=== PATIENT | male | born 1960 | race Caucasian/White ===

== ENCOUNTER → 2020-11-16 02:27 | Outpatient (CLI) | payer BC, SELFPAY ==
[2020-11-16 21:58] LABS: SARS-CoV-2 RNA PCR Negative
== END ==
PROVIDERS: PCP Family Medicine; Visit Provider Otolaryngology
DX: Z01.812 Encounter for preprocedural laboratory examination (principal); Z20.822 Contact with and (suspected) exposure to COVID-19
CPT/HCPCS: C9803; U0003; U0005

== ENCOUNTER 2020-11-19 01:03 | Day surgery (SDC) | payer BC, SELFPAY ==
[2020-11-12 09:59] VITALS: BMI 34.7
[2020-11-19] VITALS (8 sets, daily range): BP systolic 124–160; BP diastolic 71–91; PULSE 73–101; RESP 12–20; TEMP 36.1; O2SAT 96–100
[2020-11-19] MEDS: ACETAMINOPHEN 500 MG TABLET 1000 MG PO (08:06)
[2020-11-19] MEDS: LACTATED RINGERS 1,000 ML 30 ML IV CONT ×2 (08:26→10:00)
[2020-11-19] MEDS: OXYMETAZOLINE HCL 0.05% NAS 15 ML BTL (*BKC) 1 SPRAY NASAL (08:26)
--- NOTE | 2020-11-19 08:26 | WPDHPUPDATE1 ---
History and Physical Update Update Date/Time: 11/19/20 08:26 History and Physical has been reviewed, including an updated exam of the patient. There are NO changes in the patient's condition. Risks, benefits, and alternatives have been discussed and questions answered. Patient agrees to proceed with procedure.
--- NOTE | 2020-11-19 08:40 | WPDANESEPPF ---
Anes - Initial Pre Proc Eval Procedure: Operation Date: 11/19/20 09:30 Proposed Procedures p Septoplasty, Bilateral Turbinate Reduction - Steven Laguerre MD Date/Time: 11/19/20 08:40 Surgeon: tSeven Laguerre MD Pre Op Diagnosis: deviated nasal septum Patient Data Age: 60 Gender: M Height: 5 ft 9 in Weight: 107.2 kg Last Vital Signs Temp 97 F L 11/19/20 07:49 Pulse 73 11/19/20 07:49 Resp 16 11/19/20 07:49 BP 135/82 11/19/20 07:49 Pulse Ox 99 11/19/20 07:49 Allergies Allergy/AdvReac Type Severity Reaction Status Date / Time naproxen [From Aleve] Allergy Severe Swelling Verified 11/19/20 08:00 of Lip/Tongue/Throat Home Medications Medication Instructions Recorded Confirmed Type omeprazole 40 mg PO DAILY 11/12/20 11/19/20 History Patient hx anesthesia problems: none Family hx anesthesia problems: none PMFSH Past Medical History Medical History (Updated 11/19/20 @ 08:29 by Alex Grullon MD) Arthritis Hyperlipidemia Hypertension Surgical History Surgical History (Updated 10/26/19 @ 16:38 by Sapna Petit) Hx of total knee arthroplasty Family History Family History (System 10/26/19 @ 16:38 by Sapna Petit) Father Patient's father is in good health Family history of premature coronary heart disease, Onset Age: 62 Sibling Family history of malignant neoplasm of breast in first degree relative Social History Social History (System 10/26/19 @ 16:38 by Sapna Petit) Smoking status: Never smoker Alcohol intake: current Other substance usage details: MAY HAVE A MARIJUANA GUMMY 1-2 A MONTH FOR PAIN ISSUES Living arrangements: with family Spiritual care concerns: No Anes - Eval Final PreProcedure Day of Procedure 11/19/20 08:40 Patient weight: obese Heart: regular rate and rhythm Lungs: clear to auscultation Airway: Mallampati scale class II Neurological: alert and oriented Last oral intake: >/= 8 hours ASA classification: III Emergent: no Anesthetic plan: proceed Anesthesia type and monitoring: general ETT and standard monitoring Informed Consent: The patient's anesthetic plan and its attendant risks and benefits were discussed with the patient/family/POA. Questions were solicited and answers provided to the satisfaction of the patient/family/POA.
[2020-11-19] MEDS: ceFAZolin 2 GM/D5W 50 ML 2 GM/50 ML BAG IVPB (08:46)
[2020-11-19] MEDS: LIDO 1%/EPINEPHRINE 1:100,000 50 ML VIAL INFILTRATE (09:39)
[2020-11-19] MEDS: MUPIROCIN 2% OINT 22 GM TUBE 1 APPLIC EACH NARE (09:39)
--- NOTE | 2020-11-19 09:55 | P.OP_ITS ---
Procedure Note - Detailed Date of procedure: 11/19/20 Pre-op diagnosis: deviated nasal septum Post-op diagnosis: same Procedure performed: septoplasty and bilateral inferior turbinoplasty Description of procedure: DESCRIPTION OF PROCEDURE: ? After obtaining informed consent and proper site verification the patient was brought to the operating room and placed on the operating table in the supine position. They were placed under general endotracheal anesthesia by the anesthesia provider. The patient was then draped in standard fashion for septoplasty and turbinoplasty. A timeout was performed and the correct patient and procedure were verified. The nasal cavity was injected with 1% lidocaine with 1-100,000 epinephrine and packed with afrin-soaked cottonoid pledgets. ? Attention was then directed to the nasal septum. A hemitransfixion incision was made in the right caudal septum and a mucoperichondrial flap was elevated in the usual fashion. The flap was elevated under endoscopic visualization and the remainder of the case was performed with endoscopic assistance. Using a D- knife, an incision was made through the cartilaginous septum with care to preserve the appropriate caudal and dorsal ?L-strut? of cartilage. The ca rtilage was then disarticulated from the bony-cartilaginous junction and the deviated cartilage was removed. Further deviated bone and cartilage was removed from the maxillary crest and posterior bony septum with care to avoid injury to the mucoperichondrial flap using a combination of dissection and Blair- Keron forceps. The caudal aspect of the septum was then partially resected 2mm to address a very caudal right deflection. Once this was completed, the hemitransfixion incision was closed using simple interrupted 4-0 chromic suture. A quilting stitch to reapproximate the mucoperichondrial flaps was then placed using 4-0 plain gut suture on a Sridhar needle. ? Next attention was directed to the turbinates. Using a 0? telescope and 2mm turbinate blade microdebrider, a stab incision was made in the anterior face of the turbinate and dissection was carried posterior to perform submucosal resection. Next the turbinate was outfractured using a blunt instrument. A similar procedure was then performed on the right-hand side without difficulty. Coppola splints covered in mupirocin ointment were placed in the nasal cavity and secured to the membranous septum using a 3-0 Prolene suture. ?The patient was awakened from general anesthesia extubated in the operating room, and transported to the recovery room in stable condition without complication. Anesthesia: GETA Surgeon: Steven Laguerre MD Estimated blood loss (mL): 15 Drains: No Packing: Yes (coppola splints) Pathology: none sent Complications: No immediate complications Condition: stable Disposition: same day Findings: right septal deviation
[2020-11-19] MEDS: fentaNYL CITRATE INJ (*CRX) 100 MCG/2 ML VIAL 25 MCG IV PUSH ×4 (10:18→10:35)
== END 2020-11-19 12:16 | disposition home or self-care (01) ==
PROVIDERS: PCP Family Medicine; Visit Provider Otolaryngology
PROC: (CPT 30520; principal; 2020-11-19 09:30)
DX: J34.2 Deviated nasal septum (principal); J30.2 Other seasonal allergic rhinitis; K21.9 Gastro-esophageal reflux disease without esophagitis; M19.90 Unspecified osteoarthritis, unspecified site; I10 Essential (primary) hypertension; E78.5 Hyperlipidemia, unspecified; E66.9 Obesity, unspecified; Z68.34 Body mass index [BMI] 34.0-34.9, adult; F12.90 Cannabis use, unspecified, uncomplicated; G47.33 Obstructive sleep apnea (adult) (pediatric)
CPT/HCPCS: 30520; 30140; A9270; C9803; J0330; J0690; J1100; J2250; J2405; J2704; J3010; J7120; U0003; U0005

== ENCOUNTER 2023-07-07 23:29 | Emergency (ER) | payer MEDICARE, SELFPAY ==
--- NOTE | ~2023-07-07 | XR_ITS ---
EXAMINATION: XR chest 2V DATE: 07/07/2023 23:51 INDICATION: Chest pain TECHNIQUE: PA and lateral views of the chest are obtained. COMPARISON: None available FINDINGS: The lungs are free of acute opacities. No pleural effusion or pneumothorax. The cardiomedia stinal silhouette is normal. There is moderate thoracic spondylosis. IMPRESSION: 1. No acute cardiopulmonary abnormality. Reviewed, dictated and finalized at location F.
--- NOTE | ~2023-07-07 | CT_ITS ---
Clinical Indication: Chest pain CT Scan of the Chest with Contrast: Technique: Contiguous sections were acquired throughout the chest after intravenous administration of 100 cc of Omnipaque 350. Dose reduction technique was used on this scan by utilizing automated expos ure control and iterative reconstruction technique. The dose-length product (DLP) was 939.36 mGy-cm. Findings: There is no evidence of any significant mediastinal, hilar or axillary lymphadenopathy. There is exte nsive pulmonary embolus, including saddle embolus involving the right and left main pulmonary emboli, all lobar branches, and numerous segmental branches. There is apparent reversal of the LV-RV ratio. There is no evidence of aortic dissection or aneurysm. There is no evidence of pleural or pericardial effusion. The lungs are clear. No pulmonary nodules or infiltrates are noted. Images through the upper abdomen reveal partially imaged suspected bilateral hydronephrosis. Impression: Extensive pulmonary embolus, as detailed above. There is subtle amorphous with involvement of the rig ht and left main pulmonary arteries, lobar branches, and numerous segmental branches. Reversal of the LV-RV ratio is compatible with element of right heart strain. Clear lungs. Reviewed, dictated and finalized at location . Impression: Extensive pulmonary embolus, as detailed above. There is subtle amorphous with involvement of the right and left main pulmonary arteries, lobar branches, and numerous segmental branches. Reversal of the LV-RV ratio is compatible with element of right heart strain. Clear lungs.
--- NOTE | 2023-07-07 23:30 | ECG_ITS ---
Measurements Intervals [place] Rate: 110 P: 39 W[place]: 158 QRS: -6 QRSD: 81 T: 49 QT: 319 QTc: 432 Interpretive Statements SINUS TACHYCARDIA OTHERWISE NORMAL ECG NO PREVIOUS ECG AVAILABLE FOR COMPARISON Electronically Signed On 07-08-2023 10:30:21 CDT by Dayday Guidry M.D.
[2023-07-07 23:42] VITALS: BP 115/78; PULSE 113; RESP 22; TEMP 36.6; O2SAT 93
[2023-07-07 23:49] LABS: Basophils Absolute Auto 0.1 K/mm3 (0.0-0.1); Basophils Percent Auto 0.4 % (0.2-1.2); Eosinophils Absolute Auto 0.3 K/mm3 (0-0.3); Hematocrit 46.3 % (42.0-52.0); Hemoglobin 15.4 g/dL (14.0-18.0); Immature Granulocyte Absolute 0.06 K/mm3 (0.00-0.031); Immature Granulocyte Percent A 0.4 % (0-0.5); Lymphocytes Absolute Auto 3.03 K/mm3 (0.9-3.2); Lymphocytes Percent Auto 21.7 % (18.3-44.2); Mean Corpuscular HGB Conc 33.3 g/dl (32-36); Mean Corpuscular Hemoglobin 28.7 pg (26-34); Mean Corpuscular Volume 86.4 fl (80-100); Mean Platelet Volume 9.3 fl (7.4-10.4); Monocytes Absolute Auto 0.9 K/mm3 (0.1-0.6); Monocytes Percent Auto 6.5 % (2.6-8.5); Neutrophils Absolute Auto 9.6 K/mm3 (1.3-6.7); Platelet Count Result 185 k/mm3 (150-375); Red Blood Count 5.36 M/mm3 (4.6-6.20); Red Cell Distribution Width 13.4 % (11.5-14.5)
[2023-07-08] VITALS (44 sets, daily range): BP systolic 87–140; BP diastolic 54–104; PULSE 92–112; RESP 15–31; O2SAT 92–98
[2023-07-08 00:08] LABS: Alanine Aminotransferase 33 U/L (6-50); Albumin Level 4.4 g/dL (3.5-5.1); Alkaline Phosphatase 80 U/L (38-126); Anion Gap 9 mmol/L (8-16); Aspartate Amino Transferase 31 U/L (17-59); Bilirubin,Total 0.7 mg/dL (0.2-1.3); Blood Urea Nitrogen 13 mg/dL (9-20); Calcium 8.8 mg/dL (8.4-10.2); Carbon Dioxide 22 mmol/L (22-30); Chloride 104 mmol/L (98-107); Estimated CRCL calculation 91 ml/min; Estimated Glomerular Filt Rate > 60; Glucose 138 mg/dL (65-110); Lipase 89 U/L (23-300); Potassium 4.2 mmol/L (3.4-5.0); Sodium 135 mmol/L (137-145)
[2023-07-08 00:10] LABS: Prothrombin Time 13.5 Seconds (11.1-14.7)
[2023-07-08 00:11] LABS: Partial Thromboplastin Time 27.6 SECONDS (22.3-36.8)
[2023-07-08 00:23] LABS: Troponin I 0.291 ng/mL (0.000-0.034)
--- NOTE | 2023-07-08 00:48 | ED.CHESTPAIN ---
HPI - Chest Pain General Chief Complaint: Chest Pain <BRYANT Rivers Last Filed: 07/08/23 04:42> Stated Complaint: chest pain, SOB <BRYANT Rivers Last Filed: 07/08/23 04:42> Time Seen by Provider: 07/08/23 00:33 <BRYANT Rivers Last Filed: 07/08/23 04:42> History of Present Illness HPI narrative: 63-year-old male with a history of hyperlipidemia reports for evaluation for chest pain since 929 this morning. Patient states the chest pain started when he got up to walk down the [place] that was associated with dizziness and diaphoresis. He says intermittently throughout the day, he has been having these episodes while he is exerting himself. He states that the chest pain is sharp, substernal, exertional and pleuritic. He reports a cough that is unchanged from his baseline. He denies syncope, palpitations, radiating pain, nausea or vomiting, abdominal pain, fever. He does report family medical history of heart disease. Denies cardiac history himself. <BRYANT Rivers Last Filed: 07/08/23 04:42> Related Data Home Medications: Home Medications Medication Instructions Recorded Confirmed omeprazole 40 mg capsule,delayed 40 mg PO DAILY 11/12/20 11/19/20 release <BRYANT Rivers Last Filed: 07/08/23 04:42> Allergies/Adverse Reactions: Allergies Allergy/AdvReac Type Severity Reaction Status Date / Time naproxen [From Aleve] Allergy Severe Swelling Verified 11/19/20 08:00 of Lip/Tongue/Throat <BRYANT Rivers Last Filed: 07/08/23 04:42> Review of Systems Review of Systems: CONSTITUTIONAL: Denies fever, chills EYES: Denies visual changes, redness, or discharge. ENT: Denies rhinorrhea, congestion, sore throat, or otalgia. CARDIOVASCULAR: See HPI RESPIRATORY: Denies cough or dyspnea. GASTROINTESTINAL: Denies abdominal pain, nausea, vomiting, or diarrhea. GENITOURINARY: Denies dysuria or hematuria. SKIN: Denies rash or itching. MUSCULOSKELETAL: Denies back pain, joint pain, or myalgia. NEUROLOGIC: Denies headache, numbness, dizziness, or weakness. PSYCHIATRIC: Denies anxiety or depression. <Kimber Farmer PA-C - Last Filed: 07/08/23 04:42> [facility] Past Medical History Medical History: Medical History Arthritis Hyperlipidemia Hypertension <Kimber Farmer PA-C - Last Filed: 07/08/23 04:42> Surgical History Surgical History: Surgical History Hx of total knee arthroplasty <Kimber Farmer PA-C - Last Filed: 07/08/23 04:42> Family History Family History: Family History Father Patient's father is in good health Family history of premature coronary heart disease, Onset Age: 62 Sibling Family history of malignant neoplasm of breast in first degree relative <Kimber Farmer PA-C - Last Filed: 07/08/23 04:42> Social History Social History: Social History Smoking status: Never smoker Alcohol intake: current Other substance usage details: MAY HAVE A MARIJUANA GUMMY 1-2 A MONTH FOR PAIN ISSUES Living arrangements: with family Spiritual care concerns: No <Kimber Farmer PA-C - Last Filed: 07/08/23 04:42> Exam Narrative: GENERAL: Well-appearing, in no acute distress. HEAD: Normocephalic EYES: PERRLA ENT: Nares clear. Mucous membranes moist. Oropharynx without tonsillar hypertrophy exudate or other lesions. NECK: Supple. CHEST: No respiratory distress. Clear to auscultation, no adventitious breath sounds. HEART: Regular rate and rhythm. No murmur heard. Normal peripheral pulses. ABDOMEN: Soft, nontender, normal active bowel sounds. EXTREMITIES: Normal range of motion. No edema. SKIN: Warm, dry, no rash. NEURO: No focal defi
[2023-07-08] MEDS: ASPIRIN 81 MG CHEWABLE TABLET 324 MG PO (01:14)
[2023-07-08] MEDS: NITROGLYCERIN SL 0.4 MG TABLET SUBLINGUAL ×3 (01:15→01:32)
[2023-07-08] MEDS: HEPARIN SODIUM 5,000 UNITS/ML VIAL 4000 UNITS IV PUSH (01:16)
[2023-07-08] MEDS: HEPARIN SOD/D5W 100 UNITS/ML 25,000 UNITS/250 ML BAG 10 UNITS IV CONT (01:23)
--- NOTE | 2023-07-08 01:30 | PC.NURSE ---
Pt's 3rd dose of Nitro dropped pressure to 80's systolic. ERP notified and IVF started. Pt's BP improved with next BP.
[2023-07-08] MEDS: SODIUM CHLORIDE 0.9% IV 1,000 ML 999 ML IV CONT (01:41)
[2023-07-08 03:08] LABS: NT Pro B Type Natriuretic Pept 1180 pg/mL (19.9-100)
[2023-07-08] MEDS: HEPARIN SODIUM 5,000 UNITS/ML VIAL 4500 UNITS IV PUSH (03:19)
[2023-07-08] MEDS: HEPARIN SOD/D5W 100 UNITS/ML 25,000 UNITS/250 ML BAG 15 UNITS IV CONT (03:21)
--- NOTE | 2023-07-08 03:34 | PC.NURSE ---
Pt's heparin drip dosing changed by provider. Unable to dc med in NOV. Dosing changed from original bag.
[2023-07-08 04:07] LABS: Troponin I 0.299 ng/mL (0.000-0.034)
--- NOTE | 2023-07-08 06:45 | PC.NURSE ---
Report to MARIO Alejo at [facility] ICU. Pt going to [phone].
[2023-07-08 06:48] LABS: Troponin I 0.234 ng/mL (0.000-0.034)
--- NOTE | 2023-07-08 07:13 | PC.NURSE ---
Updated [facility] that pt was on the way.
== END 2023-07-08 07:18 | disposition short-term general hospital (02) ==
PROVIDERS: Physician Assistant; Emergency Provider Emergency Medicine; PCP Family Medicine
DX: I21.3 ST elevation (STEMI) myocardial infarction of unspecified site (principal); I26.02 Saddle embolus of pulmonary artery with acute cor pulmonale; M19.90 Unspecified osteoarthritis, unspecified site; E78.5 Hyperlipidemia, unspecified; I10 Essential (primary) hypertension; R06.82 Tachypnea, not elsewhere classified
CPT/HCPCS: 36415; 71046; 71275; 80053; 83690; 83880; 84484; 85025; 85610; 85730; 93005; 96365; 96366; 99285; A9270; J1644; J7030; Q9967

== ENCOUNTER 2023-09-25 12:16 | Outpatient (CLI) | payer OTHER, SELFPAY ==
--- NOTE | ~2023-09-25 | XR_ITS ---
EXAMINATION: XR hip BI 2V w AP pelvis DATE: 09/25/2023 12:41 INDICATION: Bilateral hip pain TECHNIQUE: AP view the pelvis and two views of each hip were obtained. COMPARISON: None. FINDINGS: Bone alignment is normal. There is no fracture. There is mild osteoarthritis of the hips. T here are phleboliths in the pelvis. Surgical changes are noted in the lower lumbar spine. IMPRESSION: 1. Mild osteoarthritis of the hips. Reviewed, dictated and finalized at location B. PHONE DIRECTORY DISTRIBUTOR DRIVER
== END 2023-09-25 12:17 | disposition home or self-care (01) ==
PROVIDERS: Visit Provider Orthopaedic Surgery
DX: M16.0 Bilateral primary osteoarthritis of hip (principal); M25.551 Pain in right hip; M25.552 Pain in left hip
CPT/HCPCS: 73521

== ENCOUNTER 2024-02-06 09:14 | Outpatient (CLI) | payer MEDICARE, SELFPAY ==
[2024-02-06 09:54] LABS: Basophils Absolute Auto 0.1 K/mm3 (0.0-0.1); Basophils Percent Auto 0.6 % (0.2-1.2); Eosinophils Absolute Auto 0.5 K/mm3 (0-0.3); Eosinophils Percent Auto 6.1 % (0-4.4); Hematocrit 45.2 % (42.0-52.0); Hemoglobin 14.8 g/dL (14.0-18.0); Immature Granulocyte Absolute 0.04 K/mm3 (0.00-0.031); Immature Granulocyte Percent A 0.5 % (0-0.5); Lymphocytes Absolute Auto 1.99 K/mm3 (0.9-3.2); Mean Corpuscular HGB Conc 32.7 g/dl (32-36); Mean Corpuscular Volume 85.6 fl (80-100); Mean Platelet Volume 9.4 fl (7.4-10.4); Monocytes Absolute Auto 0.6 K/mm3 (0.1-0.6); Monocytes Percent Auto 7.6 % (2.6-8.5); Neutrophils Absolute Auto 5.1 K/mm3 (1.3-6.7); Neutrophils Percent Auto 61.2 % (45.5-73.1); Platelet Count Result 258 k/mm3 (150-375); Red Blood Count 5.28 M/mm3 (4.6-6.20); Red Cell Distribution Width 13.7 % (11.5-14.5); White Blood Count 8.3 K/mm3 (4.5-10.0)
[2024-02-06 09:58] LABS: Alanine Aminotransferase 35 U/L (6-50); Albumin Level 4.5 g/dL (3.5-5.1); Alkaline Phosphatase 63 U/L (38-126); Anion Gap 9 mmol/L (4-12); Aspartate Amino Transferase 26 U/L (17-59); Bilirubin,Total 0.9 mg/dL (0.2-1.3); Blood Urea Nitrogen 21 mg/dL (9-20); Calcium 8.8 mg/dL (8.4-10.2); Carbon Dioxide 22 mmol/L (22-30); Chloride 106 mmol/L (98-107); Cholesterol 199 mg/dL (0-200); Estimated Glomerular Filt Rate > 60; Glucose 116 mg/dL (65-110); HDL Direct 51 mg/dL; Hemoglobin A1C 5.8 % (<5.7); Potassium 4.5 mmol/L (3.4-5.0); Sodium 137 mmol/L (137-145); Triglycerides 148 mg/dL (<150)
[2024-02-06 10:08] LABS: LDL Cholesterol Direct 103 mg/dL
[2024-02-06 10:29] LABS: Prostate Specific Antigen 1.8 ng/mL (< OR = 4.0)
== END 2024-02-06 09:15 | disposition home or self-care (01) ==
LOC: ANHLAB 09:21
PROVIDERS: PCP Family Medicine; Visit Provider Family Medicine
DX: I10 Essential (primary) hypertension (principal); E78.2 Mixed hyperlipidemia; R73.9 Hyperglycemia, unspecified; R63.5 Abnormal weight gain; N40.1 Benign prostatic hyperplasia with lower urinary tract symptoms
CPT/HCPCS: 36415; 80053; 80061; 83036; 84153; 84443; 85025

== ENCOUNTER 2024-07-29 12:52 | Emergency (ER) | payer MEDICARE, SELFPAY ==
--- NOTE | ~2024-07-29 | XR_ITS ---
EXAMINATION: XR chest 2V DATE: 07/29/2024 13:18 INDICATION: Productive cough. TECHNIQUE: Frontal and lateral views of the chest were obtained. COMPARISON: Chest 2 views 07/07/2023, chest CT 07/08/2023 FINDINGS: There is no pneumonia, pleural effusion, or pneumothorax. The heart size is normal. IMPRESSION: 1. No acute cardiopulmonary disease. Reviewed, dictated and finalized at location B.
[2024-07-29 13:01] VITALS: BP 138/93; PULSE 82; RESP 16; TEMP 36.1; O2SAT 99
--- NOTE | 2024-07-29 13:05 | ED.URI ---
HPI - URI/Sore Throat General Chief Complaint: Upper Respiratory Infection Stated Complaint: Sinus Infection Symptoms Time Seen by Provider: 07/29/24 13:05 Source: patient, RN notes reviewed and old records reviewed Mode of arrival: ambulatory Limitations: no limitations History of Present Illness HPI Narrative: 64-year-old male to Express Care with complaint of cough for 2 weeks. Patient reports that for the last week cough has been productive with red streaked sputum nightly. Patient reports history saddle pulmonary embolism 1 year ago and current Eliquis use. Patient denies shortness of breath, chest pain, fever. Patient sitting uncomfortably in exam room, appears tired. Patient able to tolerate fluids by mouth. Respirations even and nonlabored. Patient able to speak in complete sentences without difficulty. Related Data Home Medications Medication Instructions Recorded Confirmed apixaban 2.5 mg tablet (Eliquis) 2.5 mg PO DAILY 07/29/24 07/29/24 Allergies Allergy/AdvReac Type Severity Reaction Status Date / Time naproxen [From Aleve] Allergy Severe Swelling Verified 07/29/24 13:07 of Lip/Tongue/Throat Review of Systems Review of Systems: All systems reviewed & are unremarkable except as noted in HPI and below Constitutional: Constitutional: Reports no additional constitutional complaints Eyes: Eyes: Reports no additional eye complaints ENT: Reports system reviewed and no additional complaints, except as documented Cardiovascular: Cardiovascular: Reports no additional cardiovascular complaints, Denies chest pain and Denies dyspnea Respiratory: Respiratory: Reports no additional respiratory complaints, Reports change in phlegm color, Reports cough and Denies dyspnea Musculoskeletal: Musculoskeletal: Reports no additional musculoskeletal complaints Neurologic: Reports system reviewed and no additional complaints, except as documented Psychiatric: Psychiatric: Reports no additional psychiatric complaints [facility] Past Medical History Medical History Arthritis Arthritis of knee Dizziness Elevated fasting glucose Erectile dysfunction of non-organic origin Erosion of nasal septum Essential (primary) hypertension History of blood clots Saddle Blood Clot - Lungs Hyperlipidemia Hypertension Migraine without aura Mixed hyperlipidemia Neoplasm of uncertain behavior of skin Overactive bladder Pollen allergies Pre-op testing Saddle embolism of pulmonary artery Surgical History Surgical History History of back surgery Fusion L4-5; Discectomy Lower Back History of bilateral knee replacement History of knee surgery x8 total - including 2 replacements History of rotator cuff surgery Hx of total knee arthroplasty Family History Family History Father Patient's father is in good health Family history of premature coronary heart disease, Onset Age: 62 Sibling Family history of malignant neoplasm of breast in first degree relative Social History Social History Social History: Smoking status: Never smoker Second hand tobacco smoke exposure: No Alcohol intake: current Alcohol use details: Rarely Substance use: current Substance use type: marijuana Other substance usage details: MAY HAVE A MARIJUANA GUMMY 1-2 A MONTH FOR PAIN ISSUES Do You Feel Safe in your Home?: Yes Lack of Transportation: No Lack of Food: Never True Current Housing: I Have Housing Concerned About Future Housing: No Difficulty Paying Gas/Electric Bills: No Difficulty Paying for Meds: No Currently Unemployed: YES Education: Trade/Vocational Certificate Difficulty w/ Childcare or Family Care: No Living arrangements: with family Occupation/Education: retired Gender identity (if verbalized by the patient): Male Sexual Orientation (if Verbalized by the Patient): Straight or Heterosexual Spiritual care concerns: No Comments At the time of my signature, I reviewed and agree with the nursing past medical, surgical, social, and family history. There is no relevant family history pertinent to the patient complaint. Exam Const: General: cooperative, no acute distress, alert and well nourished Nutritional Appearance: well nourished Orientation/consciousness: patient oriented x3 Limitations: no limitations HENMT: Head: normal to inspection Ears: external ears normal Face/Nose/Sinus: Normal external nose present, Normal nares present, normal facial exam, No erythema and No edema Face and sinus: normal facial exam, no erythema and no edema Mouth: Yes Normal oral and palatal mucosa present Eyes: General: appearance normal, both eyes and all related structures Neck: Neck: normal visual inspection, full ROM and no meningeal signs Chest: Chest palpation & inspection: normal inspection of the chest Resp: Effort & Inspection: normal respiratory effort and able to speak in complete sentences Auscultation: clear to auscultation bilaterally and diminished lung sounds bilateral in the lower lung groves Cardio: Jugular venous distension: no JVD Rate: regular rate Rhythm: regular rhythm Back/Spine/Pelvis: Cervical Spine: cervical ROM normal Skin: General skin exam: normal color, no rashes or lesions noted and turgor normal Neuro: General: patient oriented x3, gait normal, moves all extremities and no meningeal signs Speech: normal speech Gait exam (Neuro): Normal gait present Extrem: General: normal to inspection, full ROM and capillary refill normal Psych: Appearance: grossly normal and well kempt Course Course Emergency Course: Some parts of this dictation were generated by voice recognition software and may contain typographical and/or grammatical inaccuracies. Level of Care: Express Care Visit Vital Signs Vital signs: Vital Signs Temperature 36.1 C L 07/29/24 13:01 Pulse Rate 82 07/29/24 13:01 Respiratory Rate 16 07/29/24 13:01 Blood Pressure 138/93 H 07/29/24 13:01 Pulse Oximetry 99 07/29/24 13:01 Temperature 36.1 C L 07/29/24 13:01 Pulse Rate 82 07/29/24 13:01 Respiratory Rate 16 07/29/24 13:01 Blood Pressure 138/93 H 07/29/24 13:01 Pulse Oximetry 99 07/29/24 13:01 reviewed MDM - URI/Sore Throat MDM Narrative Medical decision making narrative: 64-year-old male to Express Care with complaint of cough for 2 weeks. Patient reports that for the last week cough has been productive with red streaked sputum nightly. Patient reports history saddle pulmonary embolism 1 year ago and current Eliquis use. Patient denies shortness of breath, chest pain, fever. Patient sitting uncomfortably in exam room, appears tired. Patient able to tolerate fluids by mouth. Respirations even and nonlabored. Patient able to speak in complete sentences without difficulty. On exam, bilateral lower lung sounds diminished. Exam otherwise unremarkable. Chest x-ray in clinic negative for acute findings. Patient is sitting comfortably in exam room nontoxic in appearance. Patient appropriate for outpatient treatment and follow-up. Discharge instructions reviewed with patient, as well as provided in writing per nursing staff. The instructions also include specific and strict return/GO TO THE ER as well as f/u information. All questions have been answered, and the patient deny any further questions with discharge and discharge plan. Some parts of this dictation were generated by voice recognition software and may contain typographical and/or grammatical inaccuracies. Differential Diagnosis Differential diagnosis: Likely upper respiratory infection, croup, otitis media, sinusitis, viral infection, bronchitis, influenza and pharyngitis Discharge Plan Discharge Clinical Impression: Bronchitis Patient Disposition: Home, Self-Care Condition: Stable Instructions: Acute Bronchitis (ED) Additional Instructions: -Alternate Tylenol and Motrin per package directions for fever or pain. -Antihistamine medication such as Benadryl at night and Zyrtec/Claritin/Rubi during the day can help improve symptoms. -Use Flonase twice a day for 5 days then daily to help reduce the inflammation and dry up your sinuses. -You can also use Sudafed or Mucinex. Be sure to drink plenty of water with these medications at least 8 ounces with every dose and it is important to drink 8 to 10 glasses of water per day. Water is a natural decongestant -Eat and drink things that are easy to swallow, like tea or soup, or popsicles. -Oral rinses such as: Salt water gargles and/or may use topical anesthetic (eg. Chloraseptic spray) or lozenges to relieve dryness or throat pain). -Frequent hand washing or hand veterinary surgery technician is one of the best ways to prevent spread of infection. -Using a vaporizer or humidifier at night will also help thin secretions and help with coughing up phlegm. -Follow up with primary care provider in 2-3 days if condition is not improving; or seek ER visit if you have trouble breathing, cannot drink enough fluids, have muffled voice, difficulty opening your mouth, or severe swelling. Prescriptions: New methylprednisolone [Medrol (Bert)] 4 mg tablets,dose pack See Rx Instructions .ROUTE .COMPLEX Qty: 21 0RF Rx Instructions: per package instructions amoxicillin-pot clavulanate 875-125 mg tablet 1 tablet PO Q12H Qty: 20 0RF fluticasone propionate [Flonase Allergy Relief] 50 mcg/actuation spray,suspension 1 spray intranasal BID Qty: 16 0RF Rx Instructions: administer into each nostril No Action Eliquis 2.5 mg tablet 2.5 mg PO DAILY omeprazole 40 mg capsule,delayed release(DR/EC) 40 mg PO DAILY Qty: 90 1RF atorvastatin 40 mg tablet 40 mg PO DAILY Qty: 90 1RF Follow-up/Referrals: Davida Pedraza MD [Primary Care Provider] -
== END 2024-07-29 13:51 | disposition home or self-care (01) ==
PROVIDERS: Emergency Provider Nurse Practitioner Family; PCP Family Medicine
DX: J40 Bronchitis, not specified as acute or chronic (principal); F12.90 Cannabis use, unspecified, uncomplicated; I10 Essential (primary) hypertension; E78.5 Hyperlipidemia, unspecified; E78.2 Mixed hyperlipidemia; Z86.711 Personal history of pulmonary embolism; Z96.653 Presence of artificial knee joint, bilateral; Z79.01 Long term (current) use of anticoagulants; Z86.2 Personal history of diseases of the blood and blood-forming organs and certain disorders involving the immune mechanism
CPT/HCPCS: 71046; 99213; G0463

== ENCOUNTER 2024-12-15 14:17 | Outpatient (CLI) | payer MEDICARE, SELFPAY ==
--- OUTSIDE RECORDS SUMMARY | 2024-12-15 14:48 | XMS_ITS | Clinical Summary ---
Author Organization [facility] Address [address] [place] [address] Care Team Providers Care Data Analyst Report Writer Name Role Phone A, Unknown Practice Primary Care Provider [phone] Source Comments [facility],non-owned Affiliates and Associated Physician Practices is amultiple site organization consisting of ambulatory clinics and hospital sitesin [place], [place], [place] and [place]. This disclosure is being madepursuant to the Care Everywhere program and may not contain all information available regarding this patient. Last updated 18.[facility] Allergies Active Allergy Reactions Criticality Noted Date Comments Naproxen Swelling 07/08/2023 Tongue swelling Medications * Be aware that medications may not be up to date on this document. Alwaysverify current medications with the patient. Medication Sig Dispensed Refills Start Date End Date Status atorvastatin (Lipitor) 40 MG tablet Take 1 (one) tablet by mouth once daily 05/29/2023 Active omeprazole (PriLOSEC) 40 MG capsule Take 1 (one) capsule by mouth once daily 05/26/2023 Active apixaban (Eliquis) 2.5 MG tablet Take 1 (one) tablet by mouth 2 times daily 90 tablet 3 05/18/2024 Active apixaban (Eliquis) 5 MG tablet Take 1 (one) tablet by mouth 2 times daily 180 tablet 2 01/06/2024 11/25/2024 Discontinued (Tx Complete) Active Problems Problem Noted Date Diagnosed Date Pulmonary embolism and infarction 07/08/2023 Encounters Date Type Department Care Team Description 11/25/2024 9:18 AM BODS DEVELOPER - 11/25/2024 11:59 PM [facility] Hospital Encounter [facility] OP DRAW STATION [address] [place] [phone] Kiarra Bernabe MD Discharge Disposition: Home or Self Care 11/25/2024 8:00 AM BODS DEVELOPER Office Visit [facility] - Pulmonology [address] [facility] [facility] [address], [place] [address] Kiarra Bernabe MD Pulmonary embolism and infarction (Primary Dx); Chronic anticoagulation 11/25/2024 Travel from Last 3 Months Family History Medical History Relation Name Comments Cancer - Breast Sister Relation Name Status Comments Sister Social History Tobacco Use Types Packs/Day Years Used Date Smoking Tobacco: Some Days Cigars Smokeless Tobacco: Never Tobacco Cessation:Ready to Q uit: Not Asked; Counseling Given: Not Answered Alcohol Use Standard Drinks/Week Comments Yes 0 (1 standard drink = 0.6 oz pur e alcohol) OCCASIONAL SOCIALLY AUDIT-C Answer Date Recorded Q1: How often do you have a drink containing alc ohol? Monthly or less 07/09/2023 Q2: How many drinks containi ng alcohol do you have on a typical day when you are drinking? 1 or 2 07/09/2023 Q3: How often do you have si x or more drinks on one occasion? Never 07/09/2023 Overall Financial Resource Strain (CARDIA) Answe r Date Recorded How hard is it for you to pa y for the very basics like food, housing, medical care, and heating? Not very hard 07/09/2023 [facility] [place] [facility] - Occupational Stress Questionnaire Answer Date Recorded Do you feel stress - tense, restless, nervous, or anxious, or unable to sleep at night because your mind is troubled all the time - these days? Only a little 07/09/2023 Hunger Vital Sign Answer Date Recorded Within the past 12 months, y ou worried that your food would run out before you got the money to buy more. Never true 07/09/20 23 Within the past 12 months, t he food you bought just didn't last and you didn't have money to get more. Never true 07/09/2023 PRAPARE - Transportation Answer Date Re corded In the past 12 months, has l ack of transportation kept you from medical appointments or from getting medications? No 06/28 In the past 12 months, has l ack of transportation kept you from meetings, work, or from getting things needed for daily living? No 07/09/2023 Housing Stability Vital Sign Answer Samir e Recorded In the last 12 months, was t here a time when you were not able to pay the mortgage or rent on time? No 07/09/2023 In the last 12 months, how many places have you lived? 1 07/09/2023 In the last 12 months, was t here a time when you did not have a steady place to sleep or slept in a group home (including now)? No 07/09/2023 Sex and Gender Information Value Date Recorded Sex Assigned at Not on file Gender Identity Not on file Sexual Orientation Not on file Last Filed Vital Signs Vital Sign Reading Time Taken Comments Blood Pressure 135/84 11/25/2024 7:53 AM BODS DEVELOPER Pulse 82 11/25/2024 7:53 AM BODS DEVELOPER Temperature 36.7 C (98 F) 08/13/2023 9:30 AM BODS DEVELOPER Respiratory Rate 17 11/25/2024 7:53 AM BODS DEVELOPER Oxygen Saturation 94% 11/25/2024 7:53 AM BODS DEVELOPER Inhaled Oxygen Concentration - - Weight 116 kg (255 lb 12.8 oz) 11/25/2024 7:53 A M BODS DEVELOPER Height 175.3 cm (5' 9 ) 11/25/2024 7:53 AM BODS DEVELOPER Body Mass Index 37.78 11/25/2024 7:53 AM BODS DEVELOPER Plan of Treatment Upcoming Encounters Date Type Department Care Team (Late st Contact Info) Description 12/19/2024 11:30 AM CDT Appointment [facility] [address] [place] [phone] Kiarra Bernabe MD [address] [place] [address] 2L DIV OF PULMONARY/[place] [phone] 05/26/2025 8:30 AM CDT Office Visit [facility] - Pulmonology [address] [place] [address], [place] [phone] Kiarra Bernabe MD [address] [place] [address] [address] DIV OF PULMONARY/[place] [address] Health Maintenance Due Date Last Done Comments COLOGUARD (AGES 45-75) - COL ON CA SCREENING 1961 COLON MONITORING 1961 COLONOSCOPY - COLON CA SCREENING 1961 CT COLONOGRAPHY - COLON CA SCREENING 1961 Colorectal Cancer Screening 1961 FIT - COLON CA SCREENING 1961 FLEX SIG - COLON CA SCREENING 1961 HIV SCREENING 1976 HEPATITIS C SCREENING 05/20/1979 DTAP/TDAP/TD VACCINES (1 - Tdap) 1980 PNEUMOCOCCAL VACCINE 50+ (1 of 2 - PCV) 1980 ZOSTER VACCINE (1 of 2) 2011 Respiratory Syncytial Virus (RSV) Vaccine Pt: or over 60 yrs (1 - Risk 60-74 years 1-dose series) 2021 COVID-19 VACCINE (1 - 2023-2 5 season) 2024 INFLUENZA VACCINE (#1) 2024 DEPRESSION SCREENING 09/28/2024 MEDICARE AWV CALENDAR YEAR 2024 SCREENING FOR DIABETES 07/10/2026 3, 07/09/2023, 07/08/2023 HEPATITIS B VACCINE Aged Out No longe r eligible based on patient's age to complete this topic HIB VACCINE Aged Out No longer eligi ble based on patient's age to complete this topic HPV VACCINE Aged Out No longer eligi ble based on patient's age to complete this topic MENINGOCOCCAL (Group B) VACCINE SHARED DECISION-MAKING Aged Out No longer eligible based on patient's age to complete this topic MENINGOCOCCAL GROUPS A/C/Y/W VACCINE Aged Out No longer eligible b ased on patient's age to complete this topic Goals Goal Patient Goal Type Associated Problems Recent Progress Patient-Stated? Author Medication Management General On track( 023 9:37 AM BODS DEVELOPER) Isaías Pires, RN Note: Expected end date: Interventions: Take all medications as prescribed Let your doctor know right away about any changes in your medications Make sure to request a refill of your medication at least one week prior to your last dose Procedures Procedure Name Priority Date/Time Associated Diagnosis Comments CBC W AUTO DIFFERENTIAL Routine 11/25/2024 9:48 AM BODS DEVELOPER Pulmonary embolism and infarction Chronic anticoagulation HEMOGLOBIN A1C Routine 07/10/2023 2:58 AM CDT from Last 3 Months or Most Recently Relevant to Health Maintenance Results * CBC WITH DIFFERENTIAL (11/25/2024 9:48 AM [facility]) WBC 10.0 4.0 - 10.7 x10E9/L 11/25/2024 10:45 AM [facility] RBC Count 5.38 4.30 - 5.80 x10E12/L 11/25/2024 10:45 AM [facility] Hemoglobin 14.9 13.3 - 17.5 g/dL 11/25/2024 10:45 AM [facility] Hematocrit 44.4 38.7 - 51.1 % 11/25/2024 10:45 AM [facility] MCV 82.5 80.0 - 98.0 fL 11/25/2024 10:45 AM [facility] MCH 27.7 26.7 - 33.6 pg 11/25/2024 10:45 AM [facility] MCHC 33.6 31.7 - 36.3 g/dL 11/25/2024 10:45 AM [facility] RDW-CV 13.0 11.3 - 14.8 % 11/25/2024 10:45 AM [facility] Platelet Count 235 150 - 420 x10E9/L 11/25/2024 10:45 AM [facility] MPV 9.5 7.8 - 11.4 fL 11/25/2024 10:45 AM [facility] Neutrophil % 66.6 41.0 - 74.0 % 11/25/2024 10:45 AM [facility] Lymphocyte % 21.8 17.0 - 47.0 % 11/25/2024 10:45 AM [facility] Monocyte % 7.4 3.0 - 11.0 % 11/25/2024 10:45 AM [facility] Eosinophil % 3.2 0.0 - 7.0 % 11/25/2024 10:45 AM [facility] Basophil % 0.4 0.0 - 1.6 % 11/25/2024 10:45 AM [facility] Immature Granulocytes % 0.6 0.0 - 1.0 % 11/25/2024 10:45 AM [facility] Neutrophil Absolute 6.68 1.60 - 7.50 x10E9/L 11/25/2024 10:45 AM [facility] Lymphocyte Absolute 2.19 1.00 - 4.40 x10E9/L 11/25/2024 10:45 AM [facility] Monocyte Absolute 0.74 0.15 - 1.00 x10E9/L 11/25/2024 10:45 AM [facility] Eosinophil Absolute 0.32 0.00 - 0.60 x10E9/L 11/25/2024 10:45 AM [facility] Basophil Absolute 0.04 0.00 - 0.13 x10E9/L 11/25/2024 10:45 AM [facility] Blood BLOOD SPECIMEN / Unknown Lab Venipuncture / Unknown 11/25/2024 9:48 AM [facility] 11/25/2024 10:40 AM [facility] Kiarra Bernabe MD LAB - HEMATOLOGY ORD ERABLES [facility] [address] [place] [phone], [facility] [phone] * (ABNORMAL) HEMOGLOBIN A1C (07/10/2023 2:58 AM CDT) Hemoglobin A1c 6.4(H) <=5.6 % 07/10/2023 11:22 AM [facility] Estimated Average Glucose 137 mg/dL 07/10/2023 11:22 AM [facility] Comment: HbA1c Interpretation: Normal : < 5.7% Pre-diabetes: 5.7-6.4% Diabetes: Equal to or greater than 6.5% Test results diagnostic of diabetes should be repeated for confirmation. Treatment target values recommended by ADA and other clinical organizations should be used to evaluate metabolic control in patients. Reference: [place] Diabetes Association, Standards of Care in Diabetes -2020 In patients 70 years and older consider HbA1c target range of 7.0-7.5% (Reference: Diaz A, et al. JAMDA. 2012) The Sebia assay for the measurement of HbA1c is a National Glycohemoglobin Standardization Program (NGSP) certified method. Blood BLOOD SPECIMEN / Unknown Lab Venipuncture / Unknown 07/10/2023 2:58 AM CDT 07/10/2023 4:05 AM CDT Quincy Salinas MD LAB - CHEMISTRY [facility] Organization Address City/State/ZIP Co de Phone Number [facility] [address] [place] [address], [facility] [phone] from Last 3 Months or Most Recently Relevant to Health Maintenance Advance Directives * Full Code (Latest Code Status on File) Date Activated Date Inactivated Comments 07/08/2023 8:30 AM 07/10/2023 4:32 PM Care Teams Data Analyst Report Writer Relationship Specialty Start Date End Date A, Unknown Practice [address] [place] [address] PCP - General 07/05/23
--- OUTSIDE RECORDS SUMMARY | 2024-12-15 14:48 | XMS_ITS | Clinical Summary ---
Author Organization [facility] Address [address] [place] [address] Phone Care Team Providers Care Supervising Law Enforcement Analyst Name Role Phone Davida Pedraza MD Primary Care Provider [phone] Allergies Active Allergy Reactions Criticality Noted Date Comments Naproxen Sodium Anaphylaxis 11/11/2018 Tongue/ lips swell, hands itch Medications lansoprazole (PREVACID) 30 mg Capsule, Delayed Release(E.C.) Take 30 mg by mouth daily. Active losartan-hydroC HLOROthiazide (HYZAAR) 50-12.5 mg tablet Take 1 Tablet by mouth daily. Active atorvastatin (LIPITOR) 10 mg tablet Take 10 mg by mouth daily. Active acetaminophen (TYLENOL) 500 mg tablet Take 2 Tablets (1,000 mg) by mouth every 8 hours. 60 Tablet 1 11/24/2018 2:20 PM IMMIGRATION LAW SPECIALIST 9 Active Additional Information Patient taking differently:1,000 mg OralEVERY 8 HOURS PRN, Pain, Informant: Family, Reported on 06/10/2019 apixaban (ELIQUIS) 2.5 mg tablet Take 1 Tablet (2.5 mg) by mouth 2 times daily. 20 Tablet 11/24/2018 2:20 PM IMMIGRATION LAW SPECIALIST 9 Active sennosides-docu sate sodium (SENNA-S) 8.6-50 mg tablet Take 1 Tablet by mouth 2 times daily. 40 Tablet 1 11/24/2018 2:20 PM IMMIGRATION LAW SPECIALIST 9 Active saw palmetto xtr/zinc picolin (SAW PALMETTO EXTRACT ORAL) Take 1 Tablet by mouth daily. Active terbinafine HCl (LamISIL) 250 mg tablet Take 250 mg by mouth daily. Active dexAMETHasone sodium phosphate 0.4 % Solution by iontophoretic route twice weekly. Active oxyCODONE (ROXICODONE) 5 mg tabletIndicatio ns:History of total knee replacement, unspecified laterality Take 1 tablet (5 mg) by mouth every 4 hours as needed for break-through pain. Max Daily Amount: 30 mg 20 Tablet 06/18/2019 3:50 PM CDT 9 Active Social History Tobacco Use Types Packs/Day Years Used Date Smoking Tobacco: Never Smokeless Tobacco: Former Chew Quit: 1981 Alcohol Use Standard Drinks/Week Comments Yes 0 (1 standard drink = 0.6 oz pur e alcohol) occasional; monthy Sex and Gender Information Value Date Recorded Sex Assigned at Not on file Legal Sex Male 9:39 PM CDT Gender Identity Not on file Sexual Orientation Not on file Last Filed Vital Signs Vital Sign Reading Time Taken Comments Blood Pressure 148/72 06/18/2019 3:44 PM CDT Pulse 90 06/18/2019 3:44 PM CDT Temperature 36.9 C (98.4 F) 06/18/2019 3:44 PM CDT Respiratory Rate 16 06/18/2019 3:44 PM CDT Oxygen Saturation 98% 06/18/2019 3:44 PM CDT Inhaled Oxygen Concentration - - Weight 109.3 kg (241 lb) 06/17/2019 6:27 PM CDT Height 175.3 cm (5' 9 ) 06/17/2019 6:27 PM CDT Body Mass Index 35.59 06/17/2019 6:27 PM CDT Plan of Treatment Health Maintenance Due Date Last Done Comments DTAP/TDAP/TD VACCINES (1 - Tdap) 1980 COLORECTAL SCREENING 2006 Colorectal Cancer Screening 2006 FIT-DNA Q 3 years 2006 FIT/FOBT Q 1 year 2006 Flex Sig/CT Colonography Q 5 years 2006 ZOSTER VACCINE (1 of 2) 2011 INFLUENZA VACCINE (#1) 2024 RSV VACCINE (60+ or ) (1 - 1-dose 75+ series) 2036 Medical Devices Implanted Type Area Crude Tester Device Identifier Shelf Expiration Date Model / Serial / Lot Cement Smartset 40gr [id number] - Sna Implanted:Qty : 1 on 11/23/2018 by Lorenzo Kim MD at [facility] Cement Right: Knee [employer] 03/27/2020 [id number] / NA / [id number] Cement Smartset Hv 40gr [id number] - [id number] Implanted:Qty : 1 on 06/17/2019 by Lorenzo Kim MD at [facility] Cement Left: Knee [employer] 10/28/2020 [id number] / / [id number] Patella Attune Dome 38mm 1518--038 - Sna Implanted:Qty : 1 on 11/23/2018 by Lorenzo Kim MD at [facility] Knee Right: Knee [employer] 09/27/2023 [id number] / NA / [id number] Description:ENRIQUETA REQ [id number] Comp Tib Attn Fb Cmnt Sz7 1506-70-007 - Sna Implanted:Qty : 1 on 11/23/2018 by Lorenzo Kim MD at [facility] Knee Right: Knee [employer] 08/27/2028 1506-70-007 / NA / [id number] Comp Fem Attn Cr Cmnt Sz8 1504-00-208 - Sna Implanted:Qty : 1 on 11/23/2018 by Lorenzo Kim MD at [facility] Knee Right: Knee [employer] 04/27/2028 [id number] / NA / [id number] Ins Attn Fb Cr Sz8 5mm 1516-20-805 - Sna Implanted:Qty : 1 on 11/23/2018 by Lorenzo Kim MD at [facility] Knee Right: Knee [employer] 08/27/2023 [id number] / NA / [id number] Ins Attn Fb Cr Sz8 6mm 1516-20-806 - [id number] Implanted:Qty : 1 on 06/17/2019 by Lorenzo Kim MD at [facility] Knee Left: Knee [employer] 09/27/2023 [id number] / / [id number] Patella Attune Dome 38mm 1518-20-038 - [id number] Implanted:Qty : 1 on 06/17/2019 by Lorenzo Kim MD at [facility] Knee Left: Knee [employer] 04/27/2024 [id number] / / [id number] Comp Fem Attn Ps Cmnt Sz8 1504-00-108 - [id number] Implanted:Qty : 1 on 06/17/2019 by Lorenzo Kim MD at [facility] Knee Left: Knee [employer] 07/28/2028 [id number] / / [id number] Description:[id number] Dupe See New [id number] Old [id number] Comp Tib Attn Fb Cmnt Sz7 1506-70-007 - Old - [id number] Implanted:Qty : 1 on 06/17/2019 by Lorenzo Kim MD at [facility] Knee Left: Knee [employer] 12/26/2028 [id number] / / [id number] Explanted Type Area Crude Tester Device Identifier Shelf Expiration Date Model / Serial / Lot Tibia Acl Screw X 1 Explanted:Qty: 1 on 11/23/2018 at [facility] Right: Knee Insurance [employer] BLUE ACCESS CHOICE RX [employer] Express RX [employer] Commercial Advance Directives For more information, please contact: [phone] * Full Code (Latest Code Status on File) Date Activated Date Inactivated Comments 06/17/2019 6:26 PM 06/18/2019 6:30 PM * Full Code Date Activated Date Inactivated Comments 06/17/2019 11:24 AM 06/17/2019 6:26 PM * Full Code Date Activated Date Inactivated Comments 11/23/2018 1:24 PM 11/24/2018 4:56 PM Care Teams Supervising Law Enforcement Analyst Relationship Specialty Start Date End Date Davida Pedraza MD PCP - General Family Practice 12/08/18
--- OUTSIDE RECORDS SUMMARY | 2024-12-15 14:48 | XMS_ITS | Clinical Summary ---
Author Organization [facility] Address [facility] [place] [address] Care Team Providers Care Inspector [employer] Name Role Phone Non-Staff, Provider Primary Care Provider Yelitza shaffer Encounters Date Type Department Care Team Description 11/03/2024 11:52 AM COLLAR FOLDER OPERATOR - 11/03/2024 11:59 PM COLLAR FOLDER OPERATOR Hospital Encounter [facility] [address] [place] [address] Teo Joseph MD Discharge Disposition: Home or Self Care (Routine Discharge) 11/03/2024 Travel from Last 3 Months Social History Tobacco Use Types Packs/Day Years Used Date Smoking Tobacco: Never Assessed Sex and Gender Information Value Date Recorded Sex Assigned at Male 11/03/2024 11:43 AM COLLAR FOLDER OPERATOR Legal Sex Male 1:35 PM COLLAR FOLDER OPERATOR Gender Identity Not on file Sexual Orientation Not on file Plan of Treatment Health Maintenance Due Date Last Done Comments Colorectal Cancer Screening Colonoscopy (10 Years) 1961 Annual Physical 1964 Hepatitis C 1979 DTaP, Tdap and Td Vaccines ( 1 - Tdap) 1980 Zoster Vaccines (1 of 2) 2011 COVID-19 Vaccine (2023-2 5 season) 2024 Influenza Adult (#1) 2024 RSV Immunization or 60+ Years (1 - 1-dose 75+ series) 2036 Meningococcal B Vaccine Aged Out No l onger eligible based on patient's age to complete this topic Meningococcal Vaccine Aged Out No lillian fidel eligible based on patient's age to complete this topic Pneumococcal Vaccine: Pediat rics (0 to 5 Years) and At-Risk Patients (6 to 64 Years) Aged Out No longer eligible b ased on patient's age to complete this topic RSV Immunizations Under 20 Months Aged Out No longer eligible based on patient's age to complete this topic Procedures Procedure Name Priority Date/Time Associated Diagnosis Comments MRI LUMB SPINE WO CON Routine 11/03/2024 12:38 PM COLLAR FOLDER OPERATOR Other intervertebral disc degeneration, lumbar region with lower extremity pain only from Last 3 Months Results * MRI LUMB SPINE WO CON (11/03/2024 12:38 PM COLLAR FOLDER OPERATOR) Anatomical Region Laterality Modality Spine Magnetic Resonan ce 11/06/2024 7:16 AM COLLAR FOLDER OPERATOR Impressions 11/06/2024 7:30 AM COLLAR FOLDER OPERATOR IMPRESSION: 1. Severe bilateral foraminal stenosis at L5/S1. Moderate neuroforaminal stenosis on the left at L3/L4. 2. Severe central canal stenosis at L3/L4 due to minimal anterolisthesis, short pedicles, disc bulging, facet arthropathy and thickening of the ligamentum flavum. 3. Status post anterior plate screw fixation with interbody fusion at L4/L5. No acute osseous abnormality. Referred By: TEO JOSEPH Interpreted By: Anuj Tillman MD, 11/06/2024 7:16 AM Narrative 11/06/2024 7:30 AM COLLAR FOLDER OPERATOR [address] [address] EXAMINATION:MRI of the lumbar spine without contrast 11/03/2024 INDICATION: Degenerative disc disease, chronic lower back pain, prior surgery TECHNIQUE: Multiplanar multisequence or imaging of the lumbar spine was performed without intravenous contrast. COMPARISON: None FINDINGS:Last fully formed disc space is presumed represent L5/S1. There is been prior anterior plate screw fixation with interbody fusion at L4/L5. There is a complete bony fusion of the L4/L5 disc space. Schmorl's nodes are noted within the superior and inferior endplates of T12 and L2. Bone marrow signal is within normal limits with no acute fracture or dislocation. No ligamentous discontinuity or signal abnormality The conus terminates at the lower L1 level and is unremarkable contour and signal. No paraspinal mass or fluid collection. Visualized abdominal aorta is unremarkable in contour. The upper sacral joint spaces are unremarkable T12/L1: Negative L1/L2: Negative L2/L3: Disc space narrowing with the 2 mm retrolisthesis and disc bulging causing slight effacement of ventral thecal sac and mild encroachment upon the neural foramina. L3/L4: Disc space narrowing with 2 mm anterolisthesis, short pedicles, disc bulging, facet arthropathy and thickening of the ligamentum flavum causing severe central canal stenosis and moderate left neural foraminal stenosis. The thecal sac measures 4 mm L4/L5: Negative L5/S1: Disc space narrowing with 3 mm of retrolisthesis small posterior disc/osteophyte complex, facet arthropathy and bilateral foraminal disc/osteophyte complexes causing severe bilateral neural foraminal stenosis. Procedure Note Anuj Tillman MD - 11/06/2024 [id number] [place] [address] EXAMINATION:MRI of the lumbar spine without contrast 11/03/2024 INDICATION: Degenerative disc disease, chronic lower back pain, priorsurgery TECHNIQUE: Multiplanar multisequence or imaging of the lumbar spine wasperformed without intravenous contrast. COMPARISON: None FINDINGS:Last fully formed disc space is presumed represent L5/S1. Thereis been prior anterior plate screw fixation with interbody fusion atL4/L5. There is a complete bony fusion of the L4/L5 disc space. Schmorl's nodes are noted within the superior and inferior endplates ofT12 and L2. Bone marrow signal is within normal limits with no acutefracture or dislocation. No ligamentous discontinuity or signalabnormality The conus terminates at the lower L1 level and is unremarkable contour andsignal. No paraspinal mass or fluid collection. Visualized abdominalaorta is unremarkable in contour. The upper sacral joint spaces areunremarkable T12/L1: Negative L1/L2: Negative L2/L3: Disc space narrowing with the 2 mm retrolisthesis and disc bulgingcausing slight effacement of ventral thecal sac and mild encroachment uponthe neural foramina. L3/L4: Disc space narrowing with 2 mm anterolisthesis, short pedicles,disc bulging, facet arthropathy and thickening of the ligamentum flavumcausing severe central canal stenosis and moderate left neural foraminalstenosis. The thecal sac measures 4 mm L4/L5: Negative L5/S1: Disc space narrowing with 3 mm of retrolisthesis small posteriordisc/osteophyte complex, facet arthropathy and bilateral foraminaldisc/osteophyte complexes causing severe bilateral neural foraminalstenosis. IMPRESSION: 1. Severe bilateral foraminal stenosis at L5/S1. Moderate neuroforaminalstenosis on the left at L3/L4. 2. Severe central canal stenosis at L3/L4 due to minimal anterolisthesis,short pedicles, disc bulging, facet arthropathy and thickening of theligamentum flavum. 3. Status post anterior plate screw fixation with interbody fusion atL4/L5. No acute osseous abnormality. Referred By: TEO JOSEPH Interpreted By: Anuj Tillman MD, 11/06/2024 7:16 AM us Teo Joseph MD MRI Final Resul t from Last 3 Months Insurance Care Teams Inspector [employer] Relationship Specialty Start Date End Date Non-Staff, Provider PCP - General UNKNOWN PHYSICIAN SPECIALTY 11/03/24
[2024-12-15 15:08] LABS: Hematocrit 46.1 % (42.0-52.0); Hemoglobin 15.1 g/dL (14.0-18.0); Mean Corpuscular HGB Conc 32.8 g/dl (32-36); Mean Corpuscular Hemoglobin 27.7 pg (26-34); Mean Corpuscular Volume 84.4 fl (80-100); Mean Platelet Volume 9.3 fl (7.4-10.4); Platelet Count Result 254 k/mm3 (150-375); Red Blood Count 5.46 M/mm3 (4.6-6.20); Red Cell Distribution Width 13.3 % (11.5-14.5); White Blood Count 10.5 K/mm3 (4.5-10.0)
[2024-12-15 15:12] LABS: Add Urine Microscopic? NO; Appearance Urine Clear (Clear); Bilirubin Urine Negative (Negative); Blood Urine Negative (Negative); Color Urine Yellow (Yellow); Glucose Urine UA Negative (Negative); Ketones Urine Negative (Negative); Leukocyte Esterase Ur Negative LEU/UL (Negative); Nitrate Urine Negative (Negative); Protein Urine Negative (Negative); Specific Grav Ur 1.019 (1.001-1.035); Urobilinogen Urine 0.2 mg/dL (<2.0)
[2024-12-15 15:21] LABS: Alanine Aminotransferase 44 U/L (6-50); Albumin Level 4.5 g/dL (3.5-5.1); Alkaline Phosphatase 78 U/L (38-126); Anion Gap 8 mmol/L (4-12); Aspartate Amino Transferase 29 U/L (17-59); Bilirubin,Total 0.6 mg/dL (0.2-1.3); Blood Urea Nitrogen 16 mg/dL (9-20); Calcium 8.9 mg/dL (8.4-10.2); Carbon Dioxide 27 mmol/L (22-30); Chloride 103 mmol/L (98-107); Cholesterol 184 mg/dL (0-200); Estimated Glomerular Filt Rate > 60; Glucose 95 mg/dL (65-110); HDL Direct 54 mg/dL; Potassium 3.9 mmol/L (3.4-5.0); Sodium 138 mmol/L (137-145); Triglycerides 119 mg/dL (<150)
[2024-12-15 15:32] LABS: LDL Cholesterol Direct 95 mg/dL
[2024-12-15 15:50] LABS: Prostate Specific Antigen 2.2 ng/mL (< OR = 4.0)
== END 2024-12-15 14:18 | disposition home or self-care (01) ==
LOC: ANHLAB 14:18
PROVIDERS: PCP Family Medicine; Visit Provider Family Medicine
DX: E78.5 Hyperlipidemia, unspecified (principal); R35.1 Nocturia; R53.83 Other fatigue
CPT/HCPCS: 36415; 80053; 80061; 81003; 84153; 84443; 85027

== ENCOUNTER 2024-12-29 00:07 | Day surgery (SDC) | payer MEDICARE, SELFPAY ==
[2024-12-22 09:06] VITALS: BMI 36.0
--- NOTE | 2024-12-22 09:22 | PC.NURSE ---
pt instructed to hold eliquis prior to colonoscopy on december 29, 2024. He will begin hold on Thursdaydecember 25. pt voiced understanding. request to hold sent to dr maharaj office with confirmation rec'd.
--- OUTSIDE RECORDS SUMMARY | 2024-12-29 00:10 | XMS_ITS | Continuity of Care Document ---
Author Organization [facility] Address [address] [facility] [address] [place] [address] Phone Care Team Providers Care Shoulder Sawyer Name Role Phone Nimamk Fela HAINES Unavailable Unavaila ble Allergies, Adverse Reactions, Alerts Substance Reaction Status Criticality NAPROXEN SODIUM Active No Informati on Medications Medication Instructions Dosage Effective Dates (start - stop) Status Comments OMEPRAZOLE (unknown strength) take 1 capsule by oral route every day before a meal Not Available - Active Celebrex 200 mg capsule take 1 capsule by oral route every day 200 MG - No Longer Active Procedures Procedure Date X-RAY HIP UNI W PELVIS 2-3 VIEWS 2020 Methylprednisolone 40mg/ml inj Drugs unclassified injection DRAIN/INJECT JOINT/BURSA OFFICE/OUTPATIENT VISIT EST RADEX TREVON COMPL MINIMUM 2 VIEWS 020 OFFICE/OUTPATIENT VISIT EST OFFICE/OUTPATIENT VISIT EST RADEX SPI LUMBOSAC 2/3 VIEWS OFFICE/OUTPATIENT VISIT EST OFFICE/OUTPATIENT VISIT EST RADEX KNE 3 VIEWS OFFICE/OUTPATIENT VISIT EST RADEX KNE 1/2 VIEWS POSTOP FOLLOW-UP VISIT POSTOP FOLLOW-UP VISIT POSTOP FOLLOW-UP VISIT TOTAL KNEE ARTHROPLASTY RADEX KNE 3 VIEWS OFFICE/OUTPATIENT VISIT EST RADEX KNE 1/2 VIEWS POSTOP FOLLOW-UP VISIT POSTOP FOLLOW-UP VISIT POSTOP FOLLOW-UP VISIT TOTAL KNEE ARTHROPLASTY OFFICE/OUTPATIENT VISIT EST Methylprednisolone 40mg/ml inj 18 Drugs unclassified injection DRAIN/INJECT JOINT/BURSA Methylprednisolone 40mg/ml inj 18 Drugs unclassified injection DRAIN/INJECT JOINT/BURSA OFFICE/OUTPATIENT VISIT EST RADEX KNE 3 VIEWS RADEX KNE 3 VIEWS OFFICE/OUTPATIENT VISIT EST POSTOP FOLLOW-UP VISIT POSTOP FOLLOW-UP VISIT OFFICE/OUTPATIENT VISIT EST RADEX KNE 3 VIEWS OFFICE/OUTPATIENT VISIT EST POSTOP FOLLOW-UP VISIT POSTOP FOLLOW-UP VISIT POSTOP FOLLOW-UP VISIT OFFICE/OUTPATIENT VISIT EST OFFICE/OUTPATIENT VISIT EST OFFICE/OUTPATIENT VISIT EST MU Reporting OFFICE/OUTPATIENT VISIT EST MU Reporting OFFICE/OUTPATIENT VISIT EST MU Reporting MU Reporting OFFICE/OUTPATIENT VISIT EST MU Reporting OFFICE/OUTPATIENT VISIT NEW Advance Directives Directive Yes / No Effective Date File Name No Information Encounters Encounter Description Practice Location Reason(s) For Visit Diagnoses Date Provider Providers Copied on Encounter OFFICE/OUTPA TIENT VISIT EST [facility], [address], [place], [address], [place] tel:[phone] [facility] Pain in left hipTrochanteric bursitis, left hipBody mass index [BMI] 33.0-33.9, adult 1 Jose Chahal. [address], [place], [address]. tel: [phone] OFFICE/OUTPA TIENT VISIT EST [facility], [address] [facility] [address], [place], [address], [place] tel:[phone] [facility] Left shoulder pain, unspecified chronicitySubac romial bursitis of left shoulder joint Nov-3 0-202 0 Sigmund Nolberto. [address], [place], [place], [address] . tel: [phone] OFFICE/OUTPA TIENT VISIT EST [facility], [address] [facility] [address], [place], [address], [place] tel:[phone] [facility] Status post left knee replacement 0 L'Hommedi eu Darke. [address], [place], [place], [address] . tel: [phone] OFFICE/OUTPA TIENT VISIT EST [facility], [address] [address], [place], [address], [place] tel:[phone] [facility] My back hurts alot (chief complaint) Low back painBody mass index [BMI] 34.0-34.9, adult - 0 Placido Waddell. [address] , [place], [place], [address] . tel: [phone] OFFICE/OUTPA TIENT VISIT EST [facility], [address] [facility] [address], [place], [address], [place] tel:[phone] [facility] Status post left knee replacement 0 Jose Chahal. [address], [place], [address]. tel: [phone] OFFICE/OUTPA TIENT VISIT EST [facility], [address] [facility] [address], [place], [address], [place] tel:[phone] [facility] Presence of left artificial knee jointBody mass index (BMI) 35.0-35.9, adult 0 L'Hommedi eu Darke. [address], [place], [place], [address] . tel: [phone] Referring Provider: Davida Wagner, [address] [facility], [place], [address]. [phone] [facility], [address] [facility], [place], [address], [place] tel:[phone] [facility] Presence of left artificial knee joint 9 Julio Lorenzo. [address] , [place], [place], [address] . tel: [phone] [facility], [address] [address], [place], [address], [place] tel:[phone] [facility] Status post left knee replacement 9 Julio Lorenzo. [address] [facility], [place], [place], [address] . tel: [phone] [facility], [address] [address], [place], [address], [place] tel:[phone] [facility] Status post left knee replacement 9 Julio Lorenzo. [address] , [place], [place], [address] . tel: [phone] [facility], [address] [address], [place], [address], [place] tel:[phone] [facility] Status post left knee replacement 9 Reg Arvizu. [address] , [place], [place], [address] . tel: [phone] [facility], [address] [facility], [place], [address], [place] tel:[phone] [facility] Unilateral primary osteoarthritis, left knee 9 Julio Lorenzo. [address] , [place], [place], [address] . tel: [phone] OFFICE/OUTPA TIENT VISIT EST [facility], [address] [address], [place], [address], [place] tel:[phone] [facility] Pain in left kneePrimary osteoarthritis of left kneePresence of right artificial knee joint 9 Julio Lorenzo. [address] , [place], [place], [address] . tel: [phone] [facility], [address] [address], [place], [address], [place] tel:[phone] [facility] Presence of right artificial knee joint 9 Julio Lorenzo. [address] , [place], [place], [address] . tel: [phone] [facility], [address] [address], [place], [address], [place] tel:[phone] [facility] Status post total right knee replacement 9 Julio Lorenzo. [address] [facility] [address] , [place], [place], [address] . tel: [phone] [facility], [address] [address], [place], [address], [place] tel:[phone] [facility] Status post total right knee replacement 9 Julio Lorenzo. [address] , [place], [place], [address] . tel: [phone] [facility], [address] [address], [place], [address], [place] tel:[phone] [facility] Unilateral primary osteoarthritis, right knee 9 Julio Lorenzo. [address] , [place], [place], [address] . tel: [phone] OFFICE/OUTPA TIENT VISIT EST [facility], [address] [facility] [address] [address], [place], [address], [place] tel:[phone] [facility] Primary osteoarthritis of right kneePrimary osteoarthritis of left knee 9 Julio Lorenzo. [address] , [place], [place], [address] . tel: [phone] Referring Provider: Davida Wagner, [address] [facility], [place], [address]. tel:[phone] OFFICE/OUTPA TIENT VISIT EST [facility], [address] [address], [place], [address], [place] tel:[phone] [facility] Primary osteoarthritis of left kneePrimary osteoarthritis of right knee Aug- 8 Julio Lorenzo. [address] [facility], [place], [place], [address] . tel: [phone] OFFICE/OUTPA TIENT VISIT EST [facility], [address], [address], [place] tel:[phone] [facility] Pain in right kneePain in left kneePrimary osteoarthritis of right kneePrimary osteoarthritis of left kneeBody mass index (BMI) 32.0-32.9, adult Feb- 8 Julio Lorenzo. [address] [facility], [place], [place], [address] . tel: [phone] [facility], [address], [address], [place] tel:[phone] [facility] Primary osteoarthritis of left kneePrimary osteoarthritis of right knee 5 Julio Lorenzo. [address] [place], [place], [address] . tel: [phone] [facility], [address], [address], [place] tel:[phone] [facility] Primary osteoarthritis of right kneePrimary osteoarthritis of left knee Jul- 5 Julio Lorenzo. [address] [facility], [place], [place], [address] . tel: [phone] OFFICE/OUTPA TIENT VISIT EST [facility], [address], [address], [place] tel:[phone] [facility] Primary osteoarthritis of left kneePrimary osteoarthritis of right knee Oct-2 8-201 5 Julio Lorenzo. [address] , [place], [place], [address] . tel: [phone] [facility], [address] [address], [place], [address], [place] tel:[phone] [facility] Primary osteoarthritis of right kneePrimary osteoarthritis of left knee Jun- 6-201 5 Julio Lorenzo. [address] , [place], [place], [address] . tel: [phone] OFFICE/OUTPA TIENT VISIT EST [facility], [address] [address], [place], [address], [place] tel:[phone] [facility] Osteoarthritis of both knees May-2 2-201 5 Julio Lorenzo. [address] , [place], [place], [address] . tel: [phone] [facility], [address], [address], [place] tel:[phone] [facility] I feel pretty good (chief complaint) ObesityLumbar Radiculopathy Mar-2 3-201 4 Cummins Bairon. [address] [place], [place], [address] . tel: [phone] [facility], [address], [address], [place] tel:[phone] [facility] Lumbar Radiculopathy Mar-0 1-201 4 Cummins Bairon. [address] [place], [place], [address] . tel: [phone] [facility], [address], [address], [place] tel:[phone] [facility] [place] Can you check my incision (chief complaint) ObesityLumbar Radiculopathy Feb-2 0-201 4 Cummins Bairon. [address] [place], [place], [address] . tel: [phone] OFFICE/OUTPA TIENT VISIT EST [facility], [address], [address], [place] tel:[phone] [facility] ObesityLumbar RadiculopathyCu bital tunnel syndrome 4 Placido Waddell. [address] [place], [place], [address] . tel: [phone] Referring Provider: [address], [place], [address]. tel:[phone] OFFICE/OUTPA TIENT VISIT EST [facility], [address], [address], [place] tel:[phone] [facility] LBP and right buttock pain (chief complaint) Sciatica Due To Displacement Of Lumbar DiscRadiculitis , Thoracic or LumbarStatus post lumbar fusion 4 Ole Sheth. [address] [place], [place], [address] . tel: [phone] Referring Provider: Tony Edwards [address], [place], [address]. tel:[phone] OFFICE/OUTPA TIENT VISIT EST [facility], [address], [address], [place] tel:[phone] [facility] LBP and right sciatica (chief complaint) Radiculitis, Thoracic or LumbarSciatica Due To Displacement Of Lumbar Disc 2 4 Ole Sheth. [address] [place], [place], [address] . tel: [phone] Referring Provider: [address], [place], [address]. [phone] [facility], [address], [address], [place] tel:[phone] [facility] Radiculitis, Thoracic or Lumbar Sep-2 0-201 4 Ole Sheth. [address] [place], [place], [address] . tel: [phone] OFFICE/OUTPA TIENT VISIT EST [facility], [address] [address], [place], [address], [place] tel:[phone] [facility] My back and right leg feel very good (chief complaint) ObesityDietary surveillance and counseling 3 Placido Waddell. [address] [facility], [place], [place], [address] . tel:[phone] Referring Provider: Florentino Luke [address] [place] [address] , [place], [address]. tel:[phone] OFFICE/OUTPA TIENT VISIT EST [facility], [address] [address], [place], [address], [place] tel:[phone] [facility] LBP and right sciatica (chief complaint) Radiculitis, Thoracic or LumbarSciatica Due To Displacement Of Lumbar Disc Nov- 3 Ole Sheth. [address] [facility], [place], [place], [address] . tel:[phone] Referring Provider: Florentino Luke [address] [place] [address] , [place], [address]. tel:[phone] [facility], [address] [address], [place], [address], [place] tel:[phone] [facility] LBP and right sciatica (chief complaint) Sciatica Due To Displacement Of Lumbar DiscRadiculitis , Thoracic or Lumbar 3 Ole Sheth. [address] [facility], [place], [place], [address] . tel:[phone] Referring Provider: Bairon Cummins, [address] [facility], [place], [address]. tel:[phone] OFFICE/OUTPA TIENT VISIT EST [facility], [address], [address], [place] tel:[phone] [facility] ObesityDietary surveillance and counseling 3 Placido Waddell. [address] [address] [place], [place], [address] . tel:[phone] Referring Provider: Alejandra [address] , [place], [address]. tel:[phone] OFFICE/OUTPA TIENT VISIT NEW [facility], [address], [place], [address], tel:[phone] [facility] ObesityDietary surveillance and counseling 3 Placido Waddell. [address], [place], [place], [address] . tel: [phone] Referring Provider: Alejandra [address] , [place], [address]. tel:[phone] Family History Family Member Type Diagnosis Age At Onset Sister Problem breast cancer Father Problem Cardiovascular disease Payers Payer name Insurance type Covered alliance party ID Ryne del rosario(s) Blue Access PPO [id number] Social History Type Description Quantity Date Captured Comments Alcohol Use Details Caffeine Use Details Unknown Tobacco Use Status Never smoked tobacco 2020 Smoking Status Never smoker Non-Smoking Tobacco Use Details : No Details Available : No Details Available Sex Male Vital Signs Date / Time: Height Weight BMI Pulse Rate Blood Pressure Temperature Respiratory Rate Body Surface Area Head Circumference Head Circ. Percentile Wt./Brody. Percentile BMI percentile Pulse Ox Inhaled Ox 11:09 AM 69.00 in 104.326 kg (230.00 lbs) 33.9 6 kg/m eter (2) Chief Complaint And Reason For Visit No Information Reason For Referral Reason For Referral No Information Plan Of Treatment Date Type Action Status Referral Ordered: X-RAY HIP UNI W PELVIS 2-3 VIEWS LT hip ordered Referral Ordered: RADEX TREVON COMPL MINIMUM 2 VIEWS LT ordered Referral Ordered: RADEX KNE 1/2 VIEWS LT ordered Referral Ordered: RADEX KNE 1/2 VIEWS RT ordered Referral Ordered: UPR/LXTR TAIWO DUPLEX STDY LMTD LT lower extremity Appointment date/timeframe: 12/08/2018 ordered Referral Ordered: RADEX KNE 3 VIEWS RT knee ordered Referral Ordered: RADEX KNE 3 VIEWS LT knee ordered Referral Ordered: INJECTION Bilateral knee Appointment date/timeframe: 07/25/2015 ordered Referral Ordered: RADEX KNE 3 VIEWS RT ordered Referral Ordered: RADEX KNE 3 VIEWS LT ordered Referral Ordered: INJ FORAMEN EPIDURAL L/S spine, lumbar Appointment date/timeframe: 10/19/2013 ordered Referral Ordered: INJ FORAMEN EPIDURAL L/S RT S1 poss L5 Appointment date/timeframe: 11/25/2012 ordered Referral Ordered: MRI SPI CANAL&CNTS LMBR C-MATRL Appointment date/timeframe: 11/25/2012 ordered Referral Ordered: RADEX SPI LUMBOSAC 2/3 VIEWS ordered Patient Education Hip Bursitis: Exercises completed History Of Present Illness Encounter Date Complaint History Of Prese nt Illness My back hurts alot I feel pretty good Can you check my incision Functional Status Date Functional Assessmen t Pain Score 03/07 Instructions Date Instruction Additional Infor mation Apply ice 20 min per hour Relate d to Trochanteric bursitis, left hip Giving encouragement to exercise Related to Body mass index [BMI] 33.0-33.9, adult Call for increase in pain Relate d to Status post left knee replacement At this time, I feel the patient would benefit from a course of non-operative management. I will start the patient on Celebrex 200 mg daily. He cannot take other anti-inflammatories because of allergic reactions. I will also start the patient in physical therapy to work on range of motion and strengthening of the lumbar spine and modalities as seen fit by the physical therapist. I discussed with the patient the importance of continuing home therapy once formal therapy has ended. I would like to see the patient again in six weeks. All the patient's questions were answered. Related to Low back pain Dietary needs education Related to Body mass index [BMI] 34.0-34.9, adult Take medication as directed. Rel ated to Low back pain Continue home exercise program. Related to Low back pain Discussed treatment options Rela fina to Presence of left artificial knee joint Giving encouragement to exercise Related to Body mass index (BMI) 35.0-35.9, adult Call for increase in pain Relate d to Presence of left artificial knee joint Discussed surgical options Relat ed to Primary osteoarthritis of right knee Discussed surgical options Relat ed to Primary osteoarthritis of left knee Giving encouragement to exercise Related to Body mass index (BMI) 32.0-32.9, adult Apply moist heat or cold 20 min per hour. Related to Primary osteoarthritis of right knee Apply moist heat or cold 20 min per hour. Related to Primary osteoarthritis of left knee Take medication/NSAID as directe d. Related to Osteoarthritis of both knees Apply moist heat or cold 20 min per hour. Related to Osteoarthritis of both knees Dietary needs education Related to Obesity, unspecified Dietary needs education Related to Obesity, unspecified At this time, I feel the patient would benefit from a course of non-operative management. I will start the patient on Naprosyn 500mg p.o. b.i.d. for the next three weeks. I will also start the patient in physical therapy to work on range of motion and strengthening of the lumbar spine and modalities as seen fit by the physical therapist. I discussed with the patient the importance of continuing home therapy once formal therapy has ended. I would like to see the patient again in six weeks. All the patient's questions were answered. Related to Lumbar Radiculopathy Dietary needs education Related to Obesity, unspecified Ice as instructed Ice as instructed Activity as tolerated OTC anti-inflammatories (NSAIDs) OTC Medication Dietary counseling Related to Di etary surveillance counseling Ice as instructed Take new medication as prescribe d Activity as tolerated Follow exercise program Do not stop meds whe n symptoms resolve Dietary counseling Related to Di etary surveillance counseling OTC Medication Ice as instructed Take new medication as prescribe d Activity as tolerated Do not stop meds whe n symptoms resolve Dietary counseling Related to Di etary surveillance counseling Assessments Type Assessment Date assessment Pain in left hip assessment Trochanteric bursitis, left hip assessment Body mass index [BMI] 33.0-33.9, adult Patient Care Teams Name Effective Dates (start - stop) Status Members No Information
--- OUTSIDE RECORDS SUMMARY | 2024-12-29 00:10 | XMS_ITS | Continuity of Care Document ---
Author Organization [facility] Address [id number] [place] [address] [place] [address] Phone Care Team Providers Care Floral Specialist Name Role Phone Conner Rosario DO Unavailable Unavailable Advance Directives Directive Yes / No Effective Date File Name No Information Encounters Encounter Description Practice Location Reason(s) For Visit Diagnoses Date Provider Providers Copied on Encounter [facility], [address], [place], [place], [address], [place] tel:[phone] [facility] No Information Abraham Lewis. [address] [place], [address], [place]. tel: [phone] Family History Family Member Type Diagnosis Age At Onset No Information Payers Payer name Insurance type Covered green party ID Authoriza tion(s) No Information Social History Type Description Quantity Date Captured Comments Sex Male Smoking Status No Information Chief Complaint And Reason For Visit No Information Reason For Referral Reason For Referral No Information History Of Present Illness Encounter Date Complaint History Of Prese nt Illness No Information Functional Status Date Functional Assessmen t No Information Instructions Date Instruction Additional Infor mation No Information Assessments Type Assessment Date No Information Patient Care Teams Name Effective Dates (start - stop) Status Members No Information
--- OUTSIDE RECORDS SUMMARY | 2024-12-29 00:10 | XMS_ITS | Clinical Summary ---
Author Organization [facility] Address [facility] [place] [address] Care Team Providers Care Count Room Clerk Name Role Phone Non-Staff, Provider Primary Care Provider Yelitza shaffer Encounters Date Type Department Care Team Description 11/03/2024 11:52 AM COGNOS LEAD - 11/03/2024 11:59 PM COGNOS LEAD Hospital Encounter [facility] [address] [place] [address] Teo Joseph MD Discharge Disposition: Home or Self Care (Routine Discharge) 11/03/2024 Travel from Last 3 Months Social History Tobacco Use Types Packs/Day Years Used Date Smoking Tobacco: Never Assessed Sex and Gender Information Value Date Recorded Sex Assigned at Male 11/03/2024 11:43 AM COGNOS LEAD Legal Sex Male 1:35 PM COGNOS LEAD Gender Identity Not on file Sexual Orientation Not on file Plan of Treatment Health Maintenance Due Date Last Done Comments Colorectal Cancer Screening Colonoscopy (10 Years) 1961 Annual Physical 1964 Hepatitis C 1979 DTaP, Tdap and Td Vaccines ( 1 - Tdap) 1980 Zoster Vaccines (1 of 2) 2011 COVID-19 Vaccine (2023-2 5 season) 2024 RSV Immunization or 60+ Years (1 [...] SPINE WO CON Routine 11/03/2024 12:38 PM COGNOS LEAD Other intervertebral disc degeneration, lumbar region with lower extremity pain only from Last 3 Months Results * MRI LUMB SPINE WO CON (11/03/2024 12:38 PM COGNOS LEAD) Anatomical Region Laterality Modality Spine Magnetic Resonan ce 11/06/2024 7:16 AM COGNOS LEAD Impressions 11/06/2024 7:30 AM COGNOS LEAD IMPRESSION: 1. Severe bilateral foraminal stenosis at [...] 11/06/2024 7:16 AM Narrative 11/06/2024 7:30 AM COGNOS LEAD [address] [address] EXAMINATION:MRI of the lumbar spine without contrast [...] Procedure Note Anuj Tillman MD - 11/06/2024 [id number] [place] [address] EXAMINATION:MRI of the lumbar spine without contrast [...] Resul t from Last 3 Months Insurance [facility] [place] [address] Care Teams Count Room Clerk Relationship Specialty Start Date End Date Non-Staff, Provider PCP - General UNKNOWN PHYSICIAN SPECIALTY 11/03/24
--- OUTSIDE RECORDS SUMMARY | 2024-12-29 00:10 | XMS_ITS | Continuity of Care Document ---
Author Organization [facility] Address [address] [place] [address] Phone Care Team Providers Care Steamfitter Supervisor Name Role Phone Royal Hickey MD Unavailable Unavailable Allergies, Adverse Reactions, Alerts Substance Reaction Status Criticality No Known Drug Allergies Active No I nformation Procedures Procedure Date X-ray exam shoulder minimun 2 views Independent Medical Examination SHYAM Prolonged serv, w/o contact, 1st hr Advance Directives Directive Yes / No Effective Date File Name Resuscitation Not Answered N/A N/A Life Support Not Answered N/A N/A Intubation Not Answered N/A N/A Antibiotics Not Answered N/A N/A IV Fluid Support Not Answered N/A N/A Tube Feed Not Answered N/A N/A Other Directive N/A N/A WARNING:The information contained in this section is historical and is provided for information only and does not constitute a legal document or any assurance that the information is still accurate. Please verify the information with the purcell of the legal document before using it for clinical purposes. Encounters Encounter Description Practice Location Reason(s) For Visit Diagnoses Date Provider Providers Copied on Encounter Independent Medical Examination [facility], [address] [place], [place] [address], [id number], [place] tel:[phone] [facility] Ruperto Paige. [address] [facility], [address], [place], [place], [id number], [place]. tel:[phone] Family History Family Member Type Diagnosis Age At Onset No Information Payers Payer name Insurance type Covered green party ID Ryne del rosario(mony Perez [id number] Social History Type Description Quantity Date Captured Comments Alcohol Use Details Unknown Caffeine Use Details Unknown Tobacco Use Status No Information Smoking Status Never smoker Non-Smoking Tobacco Use Details : No Details Available : No Details Available Sex Male Vital Signs Date / Time: Height Weight BMI Pulse Rate Blood Pressure Temperature Respiratory Rate Body Surface Area Head Circumference Head Circ. Percentile Wt./Brody. Percentile BMI percentile Pulse Ox Inhaled Ox 11:30 AM 70.00 in 99.790 kg (220.00 lbs) 31.5 7 kg/m eter (2) 137/98 mm[Hg] Chief Complaint And Reason For Visit No [...]
--- OUTSIDE RECORDS SUMMARY | 2024-12-29 00:10 | XMS_ITS | Clinical Summary ---
Author Organization [facility] Address [address] [place] [address] Phone Care Team Providers Care Embroidery Patternmaker Name Role Phone Davida Pedraza MD Primary Care Provider [phone] Allergies Active Allergy Reactions Criticality Noted Date [...] hours. 60 Tablet 1 11/24/2018 2:20 PM RELOCATION SERVICES SPECIALIST 9 Active Additional Information Patient taking differently:1,000 mg OralEVERY 8 HOURS PRN, Pain, Informant: Family, Reported on 06/10/2019 apixaban (ELIQUIS) 2.5 mg tablet Take 1 Tablet (2.5 mg) by mouth 2 times daily. 20 Tablet 11/24/2018 2:20 PM RELOCATION SERVICES SPECIALIST 9 Active sennosides-docu sate sodium (SENNA-S) 8.6-50 mg tablet Take 1 Tablet by mouth 2 times daily. 40 Tablet 1 11/24/2018 2:20 PM RELOCATION SERVICES SPECIALIST 9 Active saw palmetto xtr/zinc picolin [...] series) 2036 Medical Devices Implanted Type Area Senior Sales Director Device Identifier Shelf Expiration Date Model / Serial / Lot Cement Smartset 40gr 3092-040 - Sna Implanted:Qty : 1 on 11/23/2018 by Lorenzo Kim MD at [facility] Cement Right: Knee [employer] 03/27/2020 [id number] / NA / [id number] Cement Smartset Hv 40gr 3092-040 - [id number] Implanted:Qty : 1 on 06/17/2019 by Lorenzo Kim MD at [facility] Cement Left: Knee [employer] 10/28/2020 [id number] / / [id number] Patella Attune Dome 38mm 1518--038 - Sna Implanted:Qty : 1 on 11/23/2018 by Lorenzo Kim MD at [facility] Knee Right: Knee [employer] 09/27/2023 [id number] / NA / [id number] Description:ENRIQUETA REQ [id number] Comp Tib Attn Fb Cmnt Sz7 1506-70-007 - Sna Implanted:Qty : 1 on 11/23/2018 by Lorenzo Kim MD at [facility] Knee Right: Knee [employer] 08/27/2028 1506-70-007 / NA / [id number] Comp Fem Attn Cr Cmnt Sz8 1504-00-208 - Sna Implanted:Qty : 1 on 11/23/2018 by Lorenzo Kim MD at [facility] Knee Right: Knee [employer] 04/27/2028 [id number] / NA / [id number] Ins Attn Fb Cr Sz8 5mm 1516-20-805 - Sna Implanted:Qty : 1 on 11/23/2018 by Lorenzo Kim MD at [facility] Knee Right: Knee [employer] 08/27/2023 [id number] / NA / [id number] Ins Attn Fb Cr Sz8 6mm 1516-20-806 - [id number] Implanted:Qty : 1 on 06/17/2019 by Lorenzo Kim MD at [facility] Knee Left: Knee [employer] 09/27/2023 [id number] / / [id number] Patella Attune Dome 38mm 1518-20-038 - [id number] Implanted:Qty : 1 on 06/17/2019 by Lorenzo Kim MD at [facility] Knee Left: Knee [employer] 04/27/2024 [id number] / / [id number] Comp Fem Attn Ps Cmnt Sz8 1504-00-108 - [id number] Implanted:Qty : 1 on 06/17/2019 by Lorenzo Kim MD at [facility] Knee Left: Knee [employer] 07/28/2028 [id number] / / [id number] Description:REQ#[id number] Dupe See New [id number] Old [id number] Comp Tib Attn Fb Cmnt Sz7 1506-70-007 - Old - [id number] Implanted:Qty : 1 on 06/17/2019 by Lorenzo Kim MD at [facility] Knee Left: Knee [employer] 12/26/2028 3866-31-875-[id number] / / [id number] Explanted Type Area Senior Sales Director Device Identifier Shelf Expiration Date Model / Serial / Lot Tibia Acl Screw X 1 Explanted:Qty: 1 on 11/23/2018 at [facility] Right: Knee Insurance BC[employer] BLUE ACCESS CHOICE RX EXPRESS SCRIPTS Express RX [employer] Commercial Advance Directives For more information, please contact: [phone] * Full Code (Latest Code Status on File) Date Activated Date Inactivated Comments 06/17/2019 6:26 PM 06/18/2019 6:30 PM * Full Code Date Activated Date Inactivated Comments 06/17/2019 11:24 AM 06/17/2019 6:26 PM * Full Code Date Activated Date Inactivated Comments 11/23/2018 1:24 PM 11/24/2018 4:56 PM Care Teams Embroidery Patternmaker Relationship Specialty Start Date End Date Davida Pedraza MD PCP - General Family Practice 12/08/18
--- OUTSIDE RECORDS SUMMARY | 2024-12-29 00:10 | XMS_ITS | Continuity of Care Document ---
Author Organization [facility] Address [address] [place] [address] [address] [place] [address] Phone Care Team Providers Care Demographic Analyst Name Role Phone Dhara PT, , Conner Unavailable Unavailable Procedures Procedure Date PT RE-EVALUATION THERAPEUTIC EXERCISES NEUROMUSCULAR RE-ED FUNC ACTIVITY THERAPEUTIC EXERCISES NEUROMUSCULAR RE-ED FUNC ACTIVITY HOT/COLD PACK ELECTRIC STIMULATION UNATT THERAPEUTIC EXERCISES NEUROMUSCULAR RE-ED FUNC ACTIVITY HOT/COLD PACK ELECTRIC STIMULATION UNATT THERAPEUTIC EXERCISES NEUROMUSCULAR RE-ED FUNC ACTIVITY HOT/COLD PACK ELECTRIC STIMULATION UNATT PT RE-EVALUATION THERAPEUTIC EXERCISES NEUROMUSCULAR RE-ED FUNC ACTIVITY HOT/COLD PACK ELECTRIC STIMULATION UNATT THERAPEUTIC EXERCISES NEUROMUSCULAR RE-ED FUNC ACTIVITY HOT/COLD PACK ELECTRIC STIMULATION UNATT THERAPEUTIC EXERCISES NEUROMUSCULAR RE-ED FUNC ACTIVITY HOT/COLD PACK ELECTRIC STIMULATION UNATT THERAPEUTIC EXERCISES NEUROMUSCULAR RE-ED FUNC ACTIVITY HOT/COLD PACK ELECTRIC STIMULATION UNATT THERAPEUTIC EXERCISES NEUROMUSCULAR RE-ED FUNC ACTIVITY HOT/COLD PACK ELECTRIC STIMULATION UNATT PT EVALUATION THERAPEUTIC EXERCISES NEUROMUSCULAR RE-ED HOT/COLD PACK ELECTRIC STIMULATION UNATT THERAPEUTIC EXERCISES NEUROMUSCULAR RE-ED MANUAL THERAPY FUNC ACTIVITY 15 MIN HOT/COLD PACK ELECTRIC STIMULATION UNATT THERAPEUTIC EXERCISES NEUROMUSCULAR RE-ED MANUAL THERAPY FUNC ACTIVITY 15 MIN HOT/COLD PACK ELECTRIC STIMULATION UNATT THERAPEUTIC EXERCISES NEUROMUSCULAR RE-ED MANUAL THERAPY HOT/COLD PACK ELECTRIC STIMULATION UNATT THERAPEUTIC EXERCISES NEUROMUSCULAR RE-ED MANUAL THERAPY HOT/COLD PACK ELECTRIC STIMULATION UNATT THERAPEUTIC EXERCISES NEUROMUSCULAR RE-ED MANUAL THERAPY HOT/COLD PACK ELECTRIC STIMULATION UNATT PT EVALUATION THERAPEUTIC EXERCISES NEUROMUSCULAR RE-ED MANUAL THERAPY HOT/COLD PACK ELECTRIC STIMULATION UNATT Advance Directives Directive Yes / No Effective Date File Name No Information Encounters Encounter Description Practice Location Reason(s) For Visit Diagnoses Date Provider Providers Copied on Encounter [facility] [facility] [address], [place], [place], [id number], [place] tel:[phone] Bradley No Information Pastor Prieto. [address] [facility], [address], [place], [address], [place]. tel: [phone] Referring Provider: Marcello Cummins, [address], [address]. tel:[phone], [place], [place], [address], tel:[phone] Bradley No Information 0-201 4 Dhara Conner. [address] [place] [address], [address], [place], [place], [facility], . tel: [phone] Referring Provider: Marcello Cummins, [address], [place], [place], [facility]. tel:[phone] [address], [place], [place], [id number], [place] tel:[phone] [place] No Information 0 7-201 4 Dhara Conner. [address] [place] [address], [address], [place], [facility], . tel: [phone] Referring Provider: Marcello Cummins [address], [place], [place], [facility]. tel:[phone] [address], [place], [place], [address], [place] tel:[phone] Bradley No Information 3-201 4 Dhara Conner. [address] [place] [address], [address], [place], [facility], . tel: [phone] Referring Provider: Marcello Cummins, [address], [place], [address]. tel:[phone] [address], [place], [place], [address], [place] tel:[phone] Bradley No Information 1-201 4 Dhara Conner. [address] [place] [address], [address], [place], [facility], . tel: [phone] Referring Provider: Marcello Cummins, [address], [place], [address]. tel:[phone] [address], [place], [place], [id number], tel:[phone] Bradley No Information 6201 4 Dhara Conner. [address] [place] [address], [address], [place], [facility], . tel:[phone] Referring Provider: Marcello Cummins, [address], [place], [address]. tel:[phone], [place], [place], [id number], tel:[phone] Bradley No Information Feb- 4-201 4 Dhara Conner. [address] [place] [address], [address], [place], [facility], . tel:[phone] Referring Provider: Marcello Cummins, [address], [place], [address]. tel:[phone] [address], [place], [place], [address], tel:[phone] Bradley No Information Feb- 9-201 4 Dhara Conner. [address] [place] [address], [address], [place], [facility], [place]. tel:[phone] Referring Provider: Marcello Cummins, [address], [place], [address]. tel:[phone] [address], [place], [place], [id number], tel:[phone] Bradley No Information Feb- 7- 4 Dhara Conner. [address] [place] [address], [address], [place], [facility], [place]. tel:[phone] Referring Provider: Marcello Cummins [address], [place], [address]. tel:[phone] [address], [place], [place], [address], tel:[phone] Bradley No Information 2-201 4 Dhara Conner. [address] [place] [address], [address], [place], [facility], [place]. tel:[phone] Referring Provider: Marcello Cummins, [address], [place], [address]. tel:[phone] [address], [place], [place], [id number], tel:[phone] Bradley No Information Mar-2 1-201 3 Dhara Conner. [address] [place] [address], [address], [place], [facility], . tel:[phone] Referring Provider: Marcello Cummins, [address], [place], [address]. tel:[phone] [address], [place], [place], [id number], tel:[phone] Bradley No Information Mar-1 3 Dhara Conner. [address] [place] [address], [address], [place], [facility], . tel:[phone] Referring Provider: Marcello Cummins, [address], [place], [address]. tel:[phone] [address], [place], [place], [address], tel:[phone] Bradley No Information Mar-1 4-201 3 Dhara Conner. [address] [place] [address], [address], [place], [facility], . tel:[phone] Referring Provider: Marcello Cummins, [address], [place], [address]. tel:[phone] [address], [place], [place], [address], tel:[phone] Bradley No Information Mar-1 -201 3 Dhara Conner. [address] [place] [address], [address], [place], [facility], . tel:[phone] Referring Provider: Mracello Cummins [address], [place], [address]. tel:[phone] [address], [place], [place], [id number], tel:[phone] Bradley No Information Nov-0 3 Dhara Prieto. [address] [facility], [address], [place], [facility], . tel:[phone] Referring Provider: Marcello Cummins [address] [facility] [address], [place], [address]. tel:[phone], [place], [place], [address], tel:[phone] Bradley LumbagoRadicu litis, Thoracic or Lumbar Nov-0 3 Dhara Prieto. [address] [facility], [address], [place], [address], . [phone] Referring Provider: Marcello Cummins [address] [facility] [address], [place], [address]. tel:[phone] Family History Family Member Type Diagnosis Age At Onset No Information Payers Payer name Insurance type Covered alliance party ID Authorrehana del rosario(s) [facility] [id number] Social History Type Description Quantity Date Captured [...]
--- OUTSIDE RECORDS SUMMARY | 2024-12-29 00:10 | XMS_ITS | Clinical Summary ---
Author Organization [facility] Address [address] [place] [address] Care Team Providers Care Sql Report Developer Name Role Phone A, Unknown Practice Primary Care Provider [phone] Sue Hicks MD Unavailable [phone] Source Comments [facility],non-owned Affiliates and Associated Physician Practices is amultiple site organization consisting of ambulatory clinics and hospital sitesin [place], [place]. This disclosure is being madepursuant to the Care Everywhere program and may not contain all information available regarding this patient. 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 Encounters Date Type Department Care Team Description 12/21/2024 Refill [facility] - Pulmonology [address] [place] [address] Kiarra Bernabe MD MEDICATION REFILL 12/19/2024 11:30 AM CDT - 12/19/2024 11:59 PM CDT Hospital Encounter [facility] PFT [address] [place] [address] Kiarra Bernabe MD Discharge Disposition: Home or Self Care 12/19/2024 Travel 11/25/2024 9:18 AM [employer] - 11/25/2024 11:59 PM [employer] Hospital Encounter [facility] LAB OP DRAW STATION [address] [place] [address] Kiarra Bernabe MD Discharge Disposition: Home or Self Care 11/25/2024 8:00 AM [employer] Office Visit [facility] - Pulmonology [address] [place] [address] Kiarra Bernabe MD Pulmonary embolism and infarction [...] [facility] Occupat ional Health - Occupational Stress [...] place to sleep or slept in a half-way (including now)? No 07/09/2023 Sex and Gender Information Value Date Recorded Sex Assigned at Not on file Gender Identity Not on file Sexual Orientation Not on file Last Filed Vital Signs Vital Sign Reading Time Taken Comments Blood Pressure 135/84 11/25/2024 7:53 AM [employer] Pulse 82 11/25/2024 7:53 AM [employer] Temperature 36.7 C (98 F) 08/13/2023 9:30 AM [employer] Respiratory Rate 17 11/25/2024 7:53 AM [employer] Oxygen Saturation 94% 11/25/2024 7:53 AM [employer] Inhaled Oxygen Concentration - - Weight 116 kg (255 lb 12.8 oz) 11/25/2024 7:53 A M [employer] Height 175.3 cm (5' 9 ) 11/25/2024 7:53 AM [employer] Body Mass Index 37.78 11/25/2024 7:53 AM [employer] Plan of Treatment Upcoming Encounters Date Type Department Care Team (Late st Contact Info) Description 05/26/2025 8:30 AM CDT Office Visit [facility] - Pulmonology [facility] [facility], [place] [address] Kiarra Bernabe MD [address] OF PULMONARY/[place] [address] Health Maintenance Due Date Last [...] CALENDAR YEAR 2024 SCREENING FOR DIABETES 07/10/2026 , 07/09/2023, 07/08/2023 HEPATITIS B VACCINE Aged Out [...] Management General On track( 023 9:37 AM [employer]) Isaías Pires, RN Note: Expected end date: Interventions: Take all medications as prescribed Let your doctor know right away about any changes in your medications Make sure to request a refill of your medication at least one week prior to your last dose Procedures Procedure Name Priority Date/Time Associated Diagnosis Comments HOME O2 EVAL (DESATURATION SCREEN) Routine 12/19/2024 12:35 PM CDT Pulmonary embolism and infarction CBC W AUTO DIFFERENTIAL Routine 11/25/2024 9:48 AM [employer] Pulmonary embolism and infarction Chronic anticoagulation HEMOGLOBIN A1C Routine 07/10/2023 2:58 AM CDT from Last 3 Months or Most Recently Relevant to Health Maintenance Results * AMBULATORY OXIMETRY (12/19/2024 12:35 PM CDT) Impressions Norbert Bhat MD - 12/19/2024 12:35 PM CDT [facility]PART[facility] OF PULMONARY, CRITICAL CARE, AND SLEEP MEDICINE OXYGEN TITRATION STUDY Igor Mcmahon Tommie 12/20/2024 INTERPRETATION The test was performed on the treadmill at a speed of 1 mph at room air. The patient was able to complete 4 minutes with lowest SpO2 of 97%. Then the treadmill speed was increased to 2 mph, the patient's SpO2 dropped to 97% at minute 1 and oxygen saturation remained above 97 throughout the test. IMPRESSION 1. At the above level of activity the patient's oxygen saturation remained 97 % and above on room air. Nusrat Martin MD Pulmonary and Critical Care Fellow [facility] Pager Number [phone] ATTESTATION: I have reviewed the test data and I agree with Dr. Martin's interpretation with changes where necessary. Norbert Bhat MD 12/21/2024 Narrative Norbert Bhat MD - 12/19/2024 12:35 PM CDT Nusrat Martin MD 12/20/2024 8:54 AM Kiarra Bernabe MD RESPIRATORY THERAPY ORDERABLES * CBC WITH DIFFERENTIAL (11/25/2024 9:48 AM [employer]) [facility] WBC 10.0 4.0 - 10.7 x10E9/L 11/25/2024 10:45 AM [employer] [facility] RBC Count 5.38 4.30 - 5.80 x10E12/L 11/25/2024 10:45 AM [facility] Hemoglobin 14.9 13.3 - 17.5 g/dL 11/25/2024 10:45 AM [facility] Hematocrit 44.4 38.7 - 51.1 % 11/25/2024 10:45 AM [facility] MCV 82.5 80.0 - 98.0 fL 11/25/2024 10:45 AM [facility] MCH 27.7 26.7 - 33.6 pg 11/25/2024 10:45 AM [facility] MCHC 33.6 31.7 - 36.3 g/dL 11/25/2024 10:45 AM [facility] RDW-CV 13.0 11.3 - 14.8 % 11/25/2024 10:45 AM [facility] Platelet Count 235 150 - 420 x10E9/L 11/25/2024 10:45 AM [facility] MPV 9.5 7.8 - 11.4 fL 11/25/2024 10:45 AM [facility] Neutrophil % 66.6 41.0 - 74.0 % 11/25/2024 10:45 AM [facility] Lymphocyte % 21.8 17.0 - 47.0 % 11/25/2024 10:45 AM [facility] Monocyte % 7.4 3.0 - 11.0 % 11/25/2024 10:45 AM [facility] Eosinophil % 3.2 0.0 - 7.0 % 11/25/2024 10:45 AM [facility] Basophil % 0.4 0.0 - 1.6 % 11/25/2024 10:45 AM [facility] Immature Granulocytes % 0.6 0.0 - 1.0 % 11/25/2024 10:45 AM [facility] Neutrophil Absolute 6.68 1.60 - 7.50 x10E9/L 11/25/2024 10:45 AM [facility] Lymphocyte Absolute 2.19 1.00 - 4.40 x10E9/L 11/25/2024 10:45 AM [facility] Monocyte Absolute 0.74 0.15 - 1.00 x10E9/L 11/25/2024 10:45 AM [facility] Eosinophil Absolute 0.32 0.00 - 0.60 x10E9/L 11/25/2024 10:45 AM [facility] Basophil Absolute 0.04 0.00 - 0.13 x10E9/L 11/25/2024 10:45 AM [facility] Blood BLOOD SPECIMEN / Unknown Lab Venipuncture / Unknown 11/25/2024 9:48 AM [employer] 11/25/2024 10:40 AM [employer] Kiarra Bernabe MD LAB - HEMATOLOGY [place] Performing Organization Address [facility]/ZIP Co de Phone Number [address] [address], [facility] [phone] * (ABNORMAL) HEMOGLOBIN A1C (07/10/2023 2:58 AM CDT) Hemoglobin A1c 6.4(H) <=5.6 % 07/10/2023 11:22 AM CDT [facility] Estimated Average Glucose 137 mg/dL 07/10/2023 11:22 AM T [facility] Comment: HbA1c Interpretation: Normal : < 5.7% Pre-diabetes: 5.7-6.4% Diabetes: Equal to or greater than 6.5% Test results diagnostic of diabetes should be repeated for confirmation. Treatment target values recommended by ADA and other clinical organizations should be used to evaluate metabolic control in patients. Reference: [place] [employer], Standards of Care in Diabetes -2020 In patients 70 years and older consider HbA1c target range of 7.0-7.5% (Reference: Joe Mccullough et al. JAMDA. 2012) The Sebia assay for the measurement of HbA1c is a National Glycohemoglobin Standardization Program (NGSP) certified method. Blood BLOOD SPECIMEN / Unknown Lab Venipuncture / Unknown 07/10/2023 2:58 AM CDT 07/10/2023 4:05 AM CDT Quincy Salinas MD LAB - CHEMISTRY [place]ONE [address] [address], [facility] [phone] from Last 3 Months or Most Recently Relevant to Health Maintenance Advance Directives * Full Code (Latest Code Status on File) Date Activated Date Inactivated Comments 07/08/2023 8:30 AM 07/10/2023 4:32 PM Care Teams Sql Report Developer Relationship Specialty Start Date End Date A, Unknown Practice [address] [place] [address] PCP - General 07/05/23 Sue Hicks MD [address] [facility] [address] [place] [address] PCP - Attributed-[facility] JENN HINES P4P 11/26/24
[2024-12-29 08:13] VITALS: BP 143/85; PULSE 94; RESP 18; TEMP 36.1; O2SAT 97; BMI 38.4
[2024-12-29] MEDS: LACTATED RINGERS 1,000 ML 150 ML IV CONT (08:19)
--- NOTE | 2024-12-29 09:08 | P.PNAN_ITS ---
Anes - Initial Pre Proc Eval Procedure: Operation Date: 12/29/24 09:30 Proposed Procedures p Colonoscopy - Malik Garrett MD Date/Time: 12/29/24 09:08 Surgeon: Malik Garrett MD Pre Op Diagnosis: Personal history of colon polyps, unspecified Patient Data Age: 64 Gender: M Height: 1.7 m Weight: 111.2 kg Last Vital Signs Temp 97 F L 12/29/24 08:13 Pulse 94 12/29/24 08:13 Resp 18 12/29/24 08:13 BP 143/85 H 12/29/24 08:13 Pulse Ox 97 12/29/24 08:13 O2 Del Method Room Air 12/29/24 08:13 Allergies Allergy/AdvReac Type Severity Reaction Status Date / Time naproxen (From Aleve) Allergy Severe Swelling Verified 12/29/24 08:11 of Lip/Tongue/Throat Home Medications ?Medication ?Instructions ?Recorded ?Confirmed ?Type omeprazole 40 mg capsule,delayed 40 mg PO DAILY #90 caps 05/31/24 12/29/24 Rx release apixaban 2.5 mg tablet (Eliquis) 2.5 mg PO DAILY 07/29/24 12/29/24 History fluticasone propionate 50 1 spray intranasal BID #16 grams 07/29/24 12/29/24 Rx mcg/actuation nasal spray,suspension (Flonase Allergy Relief) atorvastatin 40 mg tablet 40 mg PO DAILY #90 tabs 12/21/24 12/29/24 Rx Patient hx anesthesia problems: none Family hx anesthesia problems: none Results Review: All pre-operative results and documents have been reviewed as part of the pre-operative evaluation. 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 Bairon Harris Hx of total knee arthroplasty Family History Family History Father Patient's father is in good health Family history of premature coronary heart disease, Onset Age: 62 Sibling Family history of malignant neoplasm of breast in first degree relative Social History Social History Social History: Smoking status: Never smoker Second hand tobacco smoke exposure: No Alcohol intake: never Alcohol use details: Rarely Substance use: current Substance use type: marijuana Other substance usage details: MAY HAVE A MARIJUANA GUMMY 1-2 A MONTH FOR PAIN ISSUES Do You Feel Safe in your Home?: Yes Lack of Transportation: No Lack of Food: Never True Current Housing: I Have Housing Concerned About Future Housing: No Difficulty Paying Gas/Electric Bills: No Difficulty Paying for Meds: No Currently Unemployed: YES Education: Trade/Vocational Certificate Difficulty w/ Childcare or Family Care: No Living arrangements: with family Occupation/Education: retired Gender identity (if verbalized by the patient): Male Sexual Orientation (if Verbalized by the Patient): Straight or Heterosexual Spiritual care concerns: No Anes - Eval Final PreProcedure Day of Procedure 12/29/24 09:08 Patient weight: obese Heart: regular rate and rhythm Lungs: clear to auscultation Airway: Mallampati scale class II Neurological: alert and oriented Last oral intake: >/= 8 hours ASA classification: III Emergent: no Anesthetic plan: proceed Anesthesia type and monitoring: general GIVS and standard monitoring Results Review: All pre-operative results and documents have been reviewed as part of the pre- operative evaluation. Informed Consent: The patient's anesthetic plan and its attendant risks and benefits were discussed with the patient/family/POA. Questions were solicited and answers provided to the satisfaction of the patient/family/POA.
--- NOTE | 2024-12-29 09:22 | PM.IMHP ---
H&P: HPI History of Present Illness Date/Time: 12/29/24 09:22 Chief Complaint: Screening colonoscopy Narrative: This is the patient's 2nd colonoscopy. the previous 1 was about 10 years ago. There are no GI symptoms and there is no family history of colorectal cancer. 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 Bairon Harris Hx of total knee arthroplasty Family History Family History Father Patient's father is in good health Family history of premature coronary heart disease, Onset Age: 62 Sibling Family history of malignant neoplasm of breast in first degree relative Social History Social History Social History: Smoking status: Never smoker Second hand tobacco smoke exposure: No Alcohol intake: never Alcohol use details: Rarely Substance use: current Substance use type: marijuana Other substance usage details: MAY HAVE A MARIJUANA GUMMY 1-2 A MONTH FOR PAIN ISSUES Do You Feel Safe in your Home?: Yes Lack of Transportation: No Lack of Food: Never True Current Housing: I Have Housing Concerned About Future Housing: No Difficulty Paying Gas/Electric Bills: No Difficulty Paying for Meds: No Currently Unemployed: YES Education: Trade/Vocational Certificate Difficulty w/ Childcare or Family Care: No Living arrangements: with family Occupation/Education: retired Gender identity (if verbalized by the patient): Male Sexual Orientation (if Verbalized by the Patient): Straight or Heterosexual Spiritual care concerns: No Meds Home Medications and Allergies Home Medications ?Medication ?Instructions ?Recorded ?Confirmed ?Type omeprazole 40 mg capsule,delayed 40 mg PO DAILY #90 caps 05/31/24 12/29/24 Rx release apixaban 2.5 mg tablet (Eliquis) 2.5 mg PO DAILY 07/29/24 12/29/24 History fluticasone propionate 50 1 spray intranasal BID #16 grams 07/29/24 12/29/24 Rx mcg/actuation nasal spray,suspension (Flonase Allergy Relief) atorvastatin 40 mg tablet 40 mg PO DAILY #90 tabs 12/21/24 12/29/24 Rx Allergies Allergy/AdvReac Type Severity Reaction Status Date / Time naproxen (From Aleve) Allergy Severe Swelling Verified 12/29/24 08:11 of Lip/Tongue/Throat Vital Signs Vital Signs - 24 hr 12/29/24 08:13 Temperature 97 F L Pulse Rate 94 Respiratory Rate 18 Blood Pressure 143/85 H Pulse Oximetry 97 Oxygen Delivery Room Air Exam Const: General: cooperative and healthy appearing Resp: Effort & Inspection: normal respiratory effort and able to speak in complete sentences Auscultation: clear to auscultation bilaterally Cardio: Rate: regular rate Rhythm: regular rhythm GI: Inspection: normal to inspection GI Palp: No No hepatosplenomegaly present Auscultation: normal bowel sounds Rectal Exam: deferred Skin: General skin exam: normal color Psych: Appearance: grossly normal Mental Status: mental status grossly normal Assessment and Plan Assessment and plan (1) Encounter for screening colonoscopy: Code(s): Z12.11 - Encounter for screening for malignant neoplasm of colon Status: Acute Assessment and Plan: The patient is deemed a good candidate for the procedure. Consent signed. Will proceed.
[2024-12-29] MEDS: SIMETHICONE ORAL SUSPENSION 20 MG/0.3 ML 30 ML BOTTLE 0.6 ML IRRIGATION (09:39)
[2024-12-29 09:56] VITALS: BP 111/77; PULSE 79; RESP 15; O2SAT 96
[2024-12-29 10:06] VITALS: BP 142/87; PULSE 70; RESP 15; O2SAT 96
[2024-12-29 10:16] VITALS: BP 140/92; PULSE 72; RESP 15; O2SAT 100
== END 2024-12-29 10:25 | disposition home or self-care (01) ==
PROVIDERS: PCP Family Medicine; Referring Provider Family Medicine; Visit Provider Internal Medicine Gastroenterology
PROC: 0DJD8ZZ Inspection of Lower Intestinal Tract, Via Natural or Artificial Opening Endoscopic (ICD-10-PCS; CPT 45378; principal; 2024-12-29 09:30)
DX: Z12.11 Encounter for screening for malignant neoplasm of colon (principal); E78.2 Mixed hyperlipidemia; I10 Essential (primary) hypertension; Z86.711 Personal history of pulmonary embolism; Z96.653 Presence of artificial knee joint, bilateral
CPT/HCPCS: G0121; J2003; J2704; J7120

== ENCOUNTER 2024-12-30 09:32 | Outpatient (CLI) | payer MEDICARE, SELFPAY ==
--- NOTE | ~2024-12-30 | XR_ITS ---
EXAMINATION: XR sacroiliac joints min 3V DATE: 12/30/2024 09:46 INDICATION: Sacrococcygeal disorder TECHNIQUE: AP and left and right oblique views of the bilateral sacroiliac joints were obtained. COMPARISON: 10/14/2024 FINDINGS: Bone alignment is normal. Sacral arches are intact. No fracture. Mild osteoarthritis at the bilateral sacroiliac joints without evident erosions to suggest an inflammatory sacroiliitis. Bilateral hip bhavani int spaces are normal. Severe spondylosis at L5-S1 and L4-L5 anterior spinal fusion with anterior saqib te-screw fixation. IMPRESSION: 1. Mild bilateral sacroiliac osteoarthritis. 2. L4-L5 instrumented anterior spinal fusion and severe spondylosis at L5-S1. Reviewed, dictated and finalized at location A.
--- OUTSIDE RECORDS SUMMARY | 2024-12-30 09:39 | XMS_ITS | Clinical Summary ---
Author Organization [facility] Address [address] [place] [address] Phone Care Team Providers Care Clinical Pharmacologist Name Role Phone Davida Pedraza MD Primary Care Provider [phone] Allergies Active Allergy Reactions Criticality Noted Date [...] hours. 60 Tablet 1 11/24/2018 2:20 PM PSYCHIATRIC TECHNICIAN 9 Active Additional Information Patient taking differently:1,000 mg OralEVERY 8 HOURS PRN, Pain, Informant: Family, Reported on 06/10/2019 apixaban (ELIQUIS) 2.5 mg tablet Take 1 Tablet (2.5 mg) by mouth 2 times daily. 20 Tablet 11/24/2018 2:20 PM PSYCHIATRIC TECHNICIAN 9 Active sennosides-docu sate sodium (SENNA-S) 8.6-50 mg tablet Take 1 Tablet by mouth 2 times daily. 40 Tablet 1 11/24/2018 2:20 PM PSYCHIATRIC TECHNICIAN 9 Active saw palmetto xtr/zinc picolin (SAW [...] series) 2036 Medical Devices Implanted Type Area Ship'S Captain Device Identifier Shelf Expiration Date Model / Serial / Lot Cement Smartset 40gr 3092-040 - Sna Implanted:Qty : 1 on 11/23/2018 by Lorenzo Kim MD at [facility] Cement Right: Knee [employer] 03/27/2020 [id number] / NA / [id number] Cement Smartset Hv 40gr 3092-040 - [id number] Implanted:Qty : 1 on 06/17/2019 by Lorenzo Kim MD at [facility] Cement Left: Knee [employer] 10/28/2020 [id number] / / [id number] Patella Attune Dome 38mm 1518--038 - Sna Implanted:Qty : 1 on 11/23/2018 by Lorenzo Kim MD at [facility] Knee Right: Knee [employer] 09/27/2023 [id number] / NA / [id number] Description:ENRIQUETA REQ [id number] Comp Tib Attn Fb Cmnt Sz7 1506-70-007 - Sna Implanted:Qty : 1 on 11/23/2018 by Lorenzo Kim MD at [facility] Knee Right: Knee [employer] 08/27/2028 1506-70-007 / NA / [id number] Comp Fem Attn Cr Cmnt Sz8 1504-00-208 - Sna Implanted:Qty : 1 on 11/23/2018 by Lorenzo Kim MD at [facility] Knee Right: Knee [employer] 04/27/2028 [id number] / NA / [id number] Ins Attn Fb Cr Sz8 5mm 1516-20-805 - Sna Implanted:Qty : 1 on 11/23/2018 by Lorenzo Kim MD at [facility] Knee Right: Knee [employer] 08/27/2023 [id number] / NA / [id number] Ins Attn Fb Cr Sz8 6mm 1516-20-806 - [id number] Implanted:Qty : 1 on 06/17/2019 by Lorenzo Kim MD at [facility] Knee Left: Knee [employer] 09/27/2023 [id number] / / [id number] Patella Attune Dome 38mm 1518-20-038 - [id number] Implanted:Qty : 1 on 06/17/2019 by Lorenzo Kim MD at [facility] Knee Left: Knee [employer] 04/27/2024 [id number] / / [id number] Comp Fem Attn Ps Cmnt Sz8 1504-00-108 - [id number] Implanted:Qty : 1 on 06/17/2019 by Lorenzo Kim MD at [facility] Knee Left: Knee [employer] 07/28/2028 [id number] / / [id number] Description:REQ#[id number] Dupe See New [id number] Old [id number] Comp Tib Attn Fb Cmnt Sz7 1506-70-007 - Old - [id number] Implanted:Qty : 1 on 06/17/2019 by Lorenzo Kim MD at [facility] Knee Left: Knee [employer] 12/26/2028 [id number] / / [id number] Explanted Type Area Ship'S Captain Device Identifier Shelf Expiration Date Model / Serial / Lot Tibia Acl Screw X 1 Explanted:Qty: 1 on 11/23/2018 at [facility] Right: Knee Insurance [employer] BLUE ACCESS CHOICE RX [employer] Express [employer] Commercial Advance Directives For more information, please contact: [phone] * Full Code (Latest Code Status on File) Date Activated Date Inactivated Comments 06/17/2019 6:26 PM 06/18/2019 6:30 PM * Full Code Date Activated Date Inactivated Comments 06/17/2019 11:24 AM 06/17/2019 6:26 PM * Full Code Date Activated Date Inactivated Comments 11/23/2018 1:24 PM 11/24/2018 4:56 PM Care Teams Clinical Pharmacologist Relationship Specialty Start Date End Date Davida Pedraza MD PCP - General Family Practice 12/08/18
--- OUTSIDE RECORDS SUMMARY | 2024-12-30 09:39 | XMS_ITS | Clinical Summary ---
Author Organization [facility] Address [address] [place] [address] Care Team Providers Care Nightclub Manager Name Role Phone A, Unknown Practice Primary Care Provider [phone] Sue Hicks MD Unavailable [phone] Source Comments [facility],non-owned Affiliates and Associated Physician Practices is amultiple site organization consisting of ambulatory clinics and hospital sitesin [place], [place], [place] and [place]. This disclosure is being madepursuant to the Care Everywhere program and may not contain all information available regarding this patient. Last updated 18.[facility] Allergies Active Allergy Reactions Criticality Noted Date [...] Refill [facility] - Pulmonology [address] [place] [address] Kiarra Bernabe MD MEDICATION REFILL 12/19/2024 11:30 AM CDT - 12/19/2024 11:59 PM CDT Hospital Encounter [facility] PFT [address] [place] [address] Kiarra Bernabe MD Discharge Disposition: Home or Self Care 12/19/2024 Travel 11/25/2024 9:18 AM CHEMISTRY SPECIALIST - 11/25/2024 11:59 PM CHEMISTRY SPECIALIST Hospital Encounter [facility] LAB OP DRAW STATION [address] [place] [address] Kiarra Bernabe MD Discharge Disposition: Home or Self Care 11/25/2024 8:00 AM CHEMISTRY SPECIALIST Office Visit [facility] - Pulmonology [address] [place] [address] Kiarra Bernabe MD Pulmonary embolism and infarction [...] care, and heating? Not very hard 07/09/2023 [facility] [place] [facility] Occupat ional Health - Occupational Stress [...] place to sleep or slept in a jail (including now)? No 07/09/2023 Sex and Gender Information Value Date Recorded Sex Assigned at Not on file Gender Identity Not on file Sexual Orientation Not on file Last Filed Vital Signs Vital Sign Reading Time Taken Comments Blood Pressure 135/84 11/25/2024 7:53 AM CHEMISTRY SPECIALIST Pulse 82 11/25/2024 7:53 AM CHEMISTRY SPECIALIST Temperature 36.7 C (98 F) 08/13/2023 9:30 AM CHEMISTRY SPECIALIST Respiratory Rate 17 11/25/2024 7:53 AM CHEMISTRY SPECIALIST Oxygen Saturation 94% 11/25/2024 7:53 AM CHEMISTRY SPECIALIST Inhaled Oxygen Concentration - - Weight 116 kg (255 lb 12.8 oz) 11/25/2024 7:53 A M CHEMISTRY SPECIALIST Height 175.3 cm (5' 9 ) 11/25/2024 7:53 AM CHEMISTRY SPECIALIST Body Mass Index 37.78 11/25/2024 7:53 AM CHEMISTRY SPECIALIST Plan of Treatment Upcoming Encounters Date Type Department Care Team (Late st Contact Info) Description 05/26/2025 8:30 AM CDT Office Visit [facility] - Pulmonology [facility] [facility] [place] [address] Kiarra Bernabe MD [address] OF PULMONARY/[place] [address] Health Maintenance Due Date Last [...] Management General On track( 023 9:37 AM CHEMISTRY SPECIALIST) Isaías Pires, RN Note: Expected end date: [...] W AUTO DIFFERENTIAL Routine 11/25/2024 9:48 AM CHEMISTRY SPECIALIST Pulmonary embolism and infarction Chronic anticoagulation HEMOGLOBIN A1C Routine 07/10/2023 2:58 AM CDT from Last 3 Months or Most Recently Relevant to Health Maintenance Results * AMBULATORY OXIMETRY (12/19/2024 12:35 PM CDT) Impressions Norbert Bhat MD - 12/19/2024 12:35 PM CDT [facility] DEPARTMENT OF PULMONARY, CRITICAL CARE, AND SLEEP [...] Martin MD Pulmonary and Critical Care Fellow [facility] Pager Number [phone] ATTESTATION: I have reviewed the test data and I agree with Dr. Martin's interpretation with changes where necessary. Norbert Bhat MD 12/21/2024 Narrative Norbert Bhat MD - 12/19/2024 12:35 PM CDT Nusrat Martin MD 12/20/2024 8:54 AM Kiarra Bernabe MD RESPIRATORY THERAPY ORDERABLES * CBC WITH DIFFERENTIAL (11/25/2024 9:48 AM CHEMISTRY SPECIALIST) [facility] WBC 10.0 4.0 - 10.7 x10E9/L 11/25/2024 10:45 AM CHEMISTRY SPECIALIST [facility] RBC Count 5.38 4.30 - 5.80 x10E12/L 11/25/2024 10:45 AM [facility] Hemoglobin 14.9 13.3 - 17.5 g/dL 11/25/2024 10:45 AM [facility] Hematocrit 44.4 38.7 - 51.1 % 11/25/2024 10:45 AM [facility] MCV 82.5 80.0 - 98.0 fL 11/25/2024 10:45 AM [facility] MCH 27.7 26.7 - 33.6 pg 11/25/2024 10:45 AM [facility] MCHC 33.6 31.7 - 36.3 g/dL 11/25/2024 10:45 AM [facility] RDW-CV 13.0 11.3 - 14.8 % 11/25/2024 10:45 AM [facility] Platelet Count 235 150 - 420 x10E9/L 11/25/2024 10:45 AM [facility] MPV 9.5 7.8 - 11.4 fL 11/25/2024 10:45 AM [facility] Neutrophil % 66.6 41.0 - 74.0 % 11/25/2024 10:45 AM [facility] Lymphocyte % 21.8 17.0 - 47.0 % 11/25/2024 10:45 AM [facility] Monocyte % 7.4 3.0 - 11.0 % 11/25/2024 10:45 AM [facility] Eosinophil % 3.2 0.0 - 7.0 % 11/25/2024 10:45 AM [facility] Basophil % 0.4 0.0 - 1.6 % 11/25/2024 10:45 AM [facility] Immature Granulocytes % 0.6 0.0 - 1.0 % 11/25/2024 10:45 AM [facility] Neutrophil Absolute 6.68 1.60 - 7.50 x10E9/L 11/25/2024 10:45 AM [facility] Lymphocyte Absolute 2.19 1.00 - 4.40 x10E9/L 11/25/2024 10:45 AM [facility] Monocyte Absolute 0.74 0.15 - 1.00 x10E9/L 11/25/2024 10:45 AM [facility] Eosinophil Absolute 0.32 0.00 - 0.60 x10E9/L 11/25/2024 10:45 AM [facility] Basophil Absolute 0.04 0.00 - 0.13 x10E9/L 11/25/2024 10:45 AM [facility] Blood BLOOD SPECIMEN / Unknown Lab Venipuncture / Unknown 11/25/2024 9:48 AM CHEMISTRY SPECIALIST 11/25/2024 10:40 AM CHEMISTRY SPECIALIST Kiarra Bernabe MD LAB - HEMATOLOGY [place] Performing Organization Address [facility]/ZIP Co de Phone Number [address] [address], [facility] [phone] * (ABNORMAL) HEMOGLOBIN A1C (07/10/2023 2:58 AM CDT) Hemoglobin A1c 6.4(H) <=5.6 % 07/10/2023 11:22 AM CDT [facility] Estimated Average Glucose 137 mg/dL 07/10/2023 11:22 AM T [facility] Comment: HbA1c Interpretation: Normal : < 5.7% Pre-diabetes: 5.7-6.4% Diabetes: Equal to or greater than 6.5% Test results diagnostic of diabetes should be repeated for confirmation. Treatment target values recommended by ADA and other clinical organizations should be used to evaluate metabolic control in patients. Reference: [place] [employer] Association, Standards of Care in Diabetes [...] Salinas MD LAB - CHEMISTRY [place] [facility] [address] [address], [facility] [phone] from Last 3 Months or Most Recently Relevant to Health Maintenance Advance Directives * Full Code (Latest Code Status on File) Date Activated Date Inactivated Comments 07/08/2023 8:30 AM 07/10/2023 4:32 PM Care Teams Nightclub Manager Relationship Specialty Start Date End Date A, Unknown Practice [address] [place] [address] PCP - General 07/05/23 Sue Hicks MD [address] [facility] [address] [place] [address] PCP - Attributed-[facility] JENN HINES P4P 11/26/24
== END 2024-12-30 09:33 | disposition home or self-care (01) ==
PROVIDERS: PCP Family Medicine; Visit Provider Nurse Practitioner Adult Health
DX: M47.818 Spondylosis without myelopathy or radiculopathy, sacral and sacrococcygeal region (principal); M47.817 Spondylosis without myelopathy or radiculopathy, lumbosacral region; Z98.1 Arthrodesis status; M53.3 Sacrococcygeal disorders, not elsewhere classified
CPT/HCPCS: 72202

== ENCOUNTER 2025-01-01 10:51 | Emergency (ER) | payer MEDICARE, SELFPAY ==
--- NOTE | ~2025-01-01 | XR_ITS ---
[id number] Ordering provider: Rena Guillaume NP History: . pain after fall 2 days ago . Comparison: None. FINDINGS: BONES: Fracture of the right ninth and 10th ribs anteriorly. LUNGS: No effusions or infiltrates. No pneumothorax. SOFT TISSUES: Normal. IMPRESSION: Fracture of the right ninth and 10th ribs anteriorly. Clinical correlation advised. Reviewed, dictated and finalized at location A. IMPRESSION: Fracture of the right ninth and 10th ribs anteriorly. Clinical correlation advi sed.
[2025-01-01 11:04] VITALS: BP 150/102; PULSE 95; RESP 16; TEMP 36.4; O2SAT 98
--- NOTE | 2025-01-01 11:07 | ED.GENADULT ---
HPI - General Adult General Chief complaint: Extremity Injury, Upper Stated complaint: R RIB PAIN Time Seen by Provider: 01/01/25 11:07 Source: patient Mode of arrival: ambulatory Limitations: no limitations History of Present Illness HPI narrative: 64 yo M presents with R sided rib pain for 2 days. Was bringing trash can in from outside and slipped in water in garage and fell onto R side. No SOB. Ambulatory with steady gait. Did not hit head. All systems reviewed and negative except as noted above. Related Data Home Medications ?Medication ?Instructions ?Recorded ?Confirmed ?Last Taken ?Type apixaban 2.5 mg tablet (Eliquis) 2.5 mg PO Q12H 07/29/24 01/01/25 12/25/24 History Allergies Allergy/AdvReac Type Severity Reaction Status Date / Time naproxen (From [employer] Borrow or Steal) Allergy Severe Swelling Verified 01/01/25 11:03 of Lip/Tongue/Throat Review of Systems Review of Systems: CONSTITUTIONAL: Denies fever, chills, or sweats. EYES: Denies visual changes, redness, or discharge. ENT: Denies rhinorrhea, congestion, sore throat, or otalgia. CARDIOVASCULAR: Denies chest pain, palpitations, or edema. RESPIRATORY: Denies cough or dyspnea. GASTROINTESTINAL: Denies abdominal pain, nausea, vomiting, or diarrhea. GENITOURINARY: Denies dysuria or hematuria. SKIN: Denies rash or itching. MUSCULOSKELETAL: Denies back pain, joint pain, or myalgia. Reports right-sided rib pain NEUROLOGIC: Denies headache, numbness, or weakness. PSYCHIATRIC: Denies anxiety or depression. All other systems reviewed are negative, except as documented in HPI. [facility] Past Medical History Medical History Pre-op testing Pollen allergies Overactive bladder Neoplasm of uncertain behavior of skin Mixed hyperlipidemia Migraine without aura Essential (primary) hypertension Erosion of nasal septum Erectile dysfunction of non-organic origin Elevated fasting glucose Dizziness Arthritis of knee Saddle embolism of pulmonary artery History of blood clots Saddle Blood Clot - Lungs Hypertension Hyperlipidemia Arthritis Surgical History Surgical History History of knee surgery x8 total - including 2 replacements History of bilateral knee replacement History of rotator cuff surgery History of back surgery x2 Surgeries: Fusion L4-5; Discectomy Lower Back (Doesn't remember levels) - Dr. Bairon Harris Hx of total knee arthroplasty Family History Family History Father Patient's father is in good health Family history of premature coronary heart disease, Onset Age: 62 Sibling Family history of malignant neoplasm of breast in first degree relative Social History Social History Social History: Smoking status: Never smoker Second hand tobacco smoke exposure: No Alcohol intake: never Alcohol use details: Rarely Substance use: current Substance use type: marijuana Other substance usage details: MAY HAVE A MARIJUANA GUMMY 1-2 A MONTH FOR PAIN ISSUES Do You Feel Safe in your Home?: Yes Lack of Transportation: No Lack of Food: Never True Current Housing: I Have Housing Concerned About Future Housing: No Difficulty Paying Gas/Electric Bills: No Difficulty Paying for Meds: No Currently Unemployed: YES Education: Trade/Vocational Certificate Difficulty w/ Childcare or Family Care: No Living arrangements: with family Occupation/Education: retired Gender identity (if verbalized by the patient): Male Sexual Orientation (if Verbalized by the Patient): Straight or Heterosexual Spiritual care concerns: No Comments At time of signature, agree with nursing past medical, surgical, social and family history. There is no relevant family history pertinent to the presenting complaint. Exam Narrative: GENERAL: This is a well-nourished, well-developed patient, in no apparent distress. HEAD: normocephalic, atraumatic. EYES: PERRL. Sclera clear/white. Vision is grossly intact. EARS: External ears normal NOSE: External nose normal NECK: Neck supple, non-tender without lymphadenopathy, masses or thyromegaly. CARDIOVASCULAR: Regular rate and rhythm without murmurs, gallops, or rubs. RESPIRATORY: Clear to auscultation. Breath sounds equal bilaterally. No wheezes, rales, or rhonchi. MUSCULOSKELETAL: tenderness to R anterior/lateral rib without deformity. no significant bruising or swelling SKIN: warm, Dry, intact with no suspicious lesions or rash, good texture and turgor. NEURO: awake, alert, and oriented to person, place and time. There were no obvious focal neurologic abnormalities. EXTREMITIES: No joint tenderness, effusion, or edema noted. Course Course Level of Care: Express Care Visit Vital Signs Vital signs: Vital Signs Temperature 36.4 C L 01/01/25 11:04 Pulse Rate 95 01/01/25 11:04 Respiratory Rate 16 01/01/25 11:04 Blood Pressure 150/102 H 01/01/25 11:04 Pulse Oximetry 98 01/01/25 11:04 Temperature 36.4 C L 01/01/25 11:04 Pulse Rate 95 01/01/25 11:04 Respiratory Rate 16 01/01/25 11:04 Blood Pressure 150/102 H 01/01/25 11:04 Pulse Oximetry 98 01/01/25 11:04 Reviewed Medical Decision Making MDM Narrative Medical decision making narrative: Discussed x-ray results with patient. Will treat pain with Vicodin. Patient agrees with plan of care. Recommend follow-up primary care physician in the next 2-3 weeks. Educated on incentive spirometer. Patient is well-appearing, nontoxic. Please be advised this is a medical document. It is intended for bcoy-np-mcbk communication. It is written in medical language and may contain unfamiliar abbreviations or verbiage. Medical documents are intended to carry relevant information, facts as evident, and the clinical opinion of the practitioner at the time of the encounter. This report may have been done utilizing a voice recognition system. Attempts have been made to correct errors. However, there may be uncorrected grammatical, spelling, and recognition errors present. The file time of this note does not necessarily represent the time of service. Vital Signs Vital Signs: Vital Signs Temperature 36.4 C L 01/01/25 11:04 Pulse Rate 95 01/01/25 11:04 Respiratory Rate 16 01/01/25 11:04 Blood Pressure 150/102 H 01/01/25 11:04 Pulse Oximetry 98 01/01/25 11:04 Temperature 36.4 C L 01/01/25 11:04 Pulse Rate 95 01/01/25 11:04 Respiratory Rate 16 01/01/25 11:04 Blood Pressure 150/102 H 01/01/25 11:04 Pulse Oximetry 98 01/01/25 11:04 Imaging Data My impression: Agree with radiologist Radiologist's impression: [id number] Ordering provider: Rena Guillaume NP History: . pain after fall 2 days ago . Comparison: None. FINDINGS: BONES: Fracture of the right ninth and 10th ribs anteriorly. LUNGS: No effusions or infiltrates. No pneumothorax. SOFT TISSUES: Normal. IMPRESSION: Fracture of the right ninth and 10th ribs anteriorly. Clinical correlation advised. Discharge Plan Discharge Clinical Impression: Right rib fracture Qualifiers: Encounter type: initial encounter Rib fracture type: multiple ribs Fracture type: closed Qualified Code(s): S22.41XA - Multiple fractures of ribs, right side, initial encounter for closed fracture Patient Disposition: Home, Self-Care Condition: Stable Instructions: How to Use an Incentive Spirometer (ED), Rib Fracture (ED) Additional Instructions: The x-ray of your right ribs shows a fracture to your 9th and 10th rib. Take pain medication as prescribed. Do not drive while taking this medication. Apply ice as needed for pain. Follow-up with your primary care physician in the next 2-3 weeks. Patient Language: Chinese Prescriptions: New hydrocodone-acetaminophen 5-325 mg tablet 1 tablet PO Q8H PRN (Reason: pain) Qty: 20 0RF No Action Eliquis 2.5 mg tablet 2.5 mg PO Q12H fluticasone propionate [Flonase Allergy Relief] 50 mcg/actuation spray,suspension 1 spray intranasal BID Qty: 16 0RF Rx Instructions: administer into each nostril omeprazole 40 mg capsule,delayed release(DR/EC) 40 mg PO DAILY Qty: 90 1RF atorvastatin 40 mg tablet 40 mg PO DAILY Qty: 90 1RF Follow-up/Referrals: Binh Hughes MD [Primary Care Provider] - Time of Disposition: 11:47
== END 2025-01-01 11:55 | disposition home or self-care (01) ==
PROVIDERS: Emergency Provider Nurse Practitioner Family; PCP Family Medicine
DX: S22.41XA Multiple fractures of ribs, right side, initial encounter for closed fracture (principal); W01.0XXA Fall on same level from slipping, tripping and stumbling without subsequent striking against object, initial encounter; I10 Essential (primary) hypertension; E78.2 Mixed hyperlipidemia; M19.90 Unspecified osteoarthritis, unspecified site; Z85.828 Personal history of other malignant neoplasm of skin; Z96.653 Presence of artificial knee joint, bilateral; Z86.711 Personal history of pulmonary embolism; Z79.01 Long term (current) use of anticoagulants
CPT/HCPCS: 71101; 99213; G0463

== ENCOUNTER 2025-07-11 09:59 | Outpatient (CLI) | payer MEDICARE, SELFPAY ==
--- NOTE | 2025-07-11 10:52 | ECG_ITS ---
Test Date: 2025-07-11 11:01:05 Measurements Intervals Miller Rate: 70 P: 46 OK: 165 QRS: -5 QRSD: 89 T: 31 QT: 376 QTc: 406 Interpretive Statements SINUS RHYTHM DELAYED PRECORDIAL R/S TRANSITION BASELINE ARTIFACT- I, III, AVR, AVL, AVF BORDERLINE ECG No previous ECG available for comparison Electronically Signed On 07-11-2025 11:41:50 CDT by Rafael Almonte D.O.
[2025-07-11 11:14] LABS: Add Urine Microscopic? NO; Appearance Urine Clear (Clear); Glucose Urine UA Negative (Negative); Leukocyte Esterase Ur Negative LEU/UL (Negative); Nitrate Urine Negative (Negative); Specific Grav Ur 1.022 (1.001-1.035)
[2025-07-11 11:15] LABS: Hematocrit 45.3 % (42.0-52.0); Hemoglobin 15.0 g/dL (14.0-18.0); Mean Corpuscular HGB Conc 33.1 g/dl (32-36); Mean Corpuscular Hemoglobin 27.4 pg (26-34); Mean Corpuscular Volume 82.8 fl (80-100); Platelet Count Result 253 k/mm3 (150-375); Red Blood Count 5.47 M/mm3 (4.6-6.20); White Blood Count 10.4 K/mm3 (4.5-10.0)
--- OUTSIDE RECORDS SUMMARY | 2025-07-11 11:29 | XMS_ITS | Clinical Summary ---
Author Organization [facility] Address [address] [facility] [place] [address] Care Team Providers Care Machine Tool Technician Instructor Name Role Phone A, Unknown Practice Primary Care Provider [phone] Source Comments [facility],non-owned Affiliates and Associated Physician Practices is amultiple site organization consisting of ambulatory clinics and hospital sitesin [place], [place], [place] and [place]. This disclosure is being madepursuant to the Care Everywhere program and may not contain all information available regarding this patient. Last updated 18.[facility] Allergies Active Allergy Reactions Criticality Noted Date Comments Naproxen Swelling 07/08/2023 Tongue swelling Medications * Be aware that medications may not be up to date on this document. Alwaysverify current medications with the patient. atorvastatin (Lipitor) 40 MG tablet Take 1 (one) tablet by mouth once daily 05/29/2023 Active omeprazole (PriLOSEC) 40 MG capsule Take 1 (one) capsule by mouth once daily 05/26/2023 Active apixaban (Eliquis) 2.5 MG tablet Take 1 (one) tablet by mouth 2 times daily 180 tablet 12/21/2024 Active Active Problems Problem Noted Date Diagnosed Date Pulmonary embolism and infarction 07/08/2023 Encounters Date Type Department Care Team Description 06/23/2025 10:30 AM CDT Office Visit [facility] - Pulmonology [address] [facility], [place] [address] Kiarra Bernabe MD Pulmonary embolism and infarction (HCC) (Primary Dx) 06/23/2025 Travel 04/21/2025 Telephone [facility]ology [address] [facility], [place] [address] Kiarra Bernabe MD Appointment from Last 3 Months Family History Medical [...] care, and heating? Not very hard 07/09/2023 [facility] of Occupat ional Health - Occupational Stress [...] place to sleep or slept in a fci (including now)? No 07/09/2023 Sex and Gender Information Value Date Recorded Sex Assigned at Not on file Legal Sex Male 4:03 AM CDT Gender Identity Not on file Sexual Orientation Not on file Last Filed Vital Signs Vital Sign Reading Time Taken Comments Blood Pressure 132/84 06/23/2025 10:32 AM CDT Pulse 81 06/23/2025 10:32 AM CDT Temperature 36.7 C (98 F) 08/13/2023 9:30 AM METAL FURNITURE REPAIRER Respiratory Rate 17 06/23/2025 10:32 AM CDT Oxygen Saturation 95% 06/23/2025 10:32 AM CDT Inhaled Oxygen Concentration - - Weight 114.8 kg (253 lb) 06/23/2025 10:32 AM CDT Height 175.3 cm (5' 9) 06/23/2025 10:32 AM CDT Body Mass Index 37.36 06/23/2025 10:32 AM CDT Plan of Treatment Upcoming Encounters Date Type Department Care Team (Late st Contact Info) Description 12/01/2025 11:00 AM METAL FURNITURE REPAIRER Office Visit [facility] - Pulmonology [address] [place] [address], [place] [address] Kiarra Bernabe MD [address] [place] [address] [address] DIV OF PULMONARY/[place] [phone] Health Maintenance Due Date Last Done Comments [...] - Risk 60-74 years 1-dose series) 2021 DEPRESSION SCREENING 09/28/2024 MEDICARE AWV CALENDAR YEAR 2024 COVID-19 VACCINE (1 - 2023-2 5 season) 2025 INFLUENZA VACCINE (#1) 2025 SCREENING FOR DIABETES 07/10/2026 , 07/09/2023, 07/08/2023 [...] Management General On track( 023 9:37 AM METAL FURNITURE REPAIRER) Isaías Pires, RN Note: Expected end date: Interventions: Take all medications as prescribed Let your doctor know right away about any changes in your medications Make sure to request a refill of your medication at least one week prior to your last dose Procedures Procedure Name Priority Date/Time Associated Diagnosis Comments HEMOGLOBIN A1C Routine 07/10/2023 2:58 AM CDT from Last 3 Months or Most Recently Relevant to Health Maintenance Results * (ABNORMAL) HEMOGLOBIN A1C (07/10/2023 2:58 AM CDT) Hemoglobin A1c 6.4(H) <=5.6 % 07/10/2023 11:22 AM CDT [facility] Estimated Average Glucose 137 mg/dL 07/10/2023 11:22 AM CDT [facility] Comment: HbA1c Interpretation: Normal : < 5.7% Pre-diabetes: 5.7-6.4% Diabetes: Equal to or greater than 6.5% Test results diagnostic of diabetes should be repeated for confirmation. Treatment target values recommended by ADA and other clinical organizations should be used to evaluate metabolic control in patients. Reference: [place] Diabetes Association, Standards of Care in Diabetes [...] CDT Quincy Salinas MD LAB - CHEMISTRY ORDERABLES Final Result [address] [address], [facility] [phone] from Last 3 Months or Most Recently Relevant to Health Maintenance Insurance [facility] MANAGED MEDICARE ADV Advance Directives * Full Code (Latest Code Status on File) Date Activated Date Inactivated Comments 07/08/2023 8:30 AM 07/10/2023 4:32 PM Care Teams Machine Tool Technician Instructor Relationship Specialty Start Date End Date A, Unknown Practice [address] [place] [phone] PCP - General 07/05/23
--- OUTSIDE RECORDS SUMMARY | 2025-07-11 11:29 | XMS_ITS | Encounter Summary ---
Author Organization [facility] Address [address] [place] [address] Care Team Providers Care Applications Sales Consultant Name Role Phone A, Unknown Practice Primary Care Provider [phone] Reason for Visit * Reason Onset Date Comments Appointment 04/21/2025 Encounter Details Date Type Department Care Team ([facility] st Contact Info) Description 04/21/2025 Telephone [facility]ology [address] [facility], [place] [address] Kiarra Bernabe MD [address] [place] [address] DIV OF PULMONARY/[place] [address] Appointment Social History Tobacco Use Types Packs/Day Years Used Date Smoking Tobacco: Some Days Cigars Smokeless Tobacco: Never Alcohol Use Standard Drinks/Week Comments Yes 0 [...] care, and heating? Not very hard 07/09/2023 [facility] of Occupat ional Health - Occupational Stress [...] place to sleep or slept in a nursing home (including now)? No 07/09/2023 Sex and Gender Information Value Date Recorded Sex Assigned at Not on file Legal Sex Male 4:03 AM CDT Gender Identity Not on file Sexual Orientation Not on file documented as of this encounter Functional Status * Is person deaf or have serious hearing difficulty? Answer Date of Assessment Author No 07/08/2023 12:00 PM CDT Quincy Coulter RN * Is person blind or have serious difficulty seeing? Answer Date of Assessment Author No 07/08/2023 12:00 PM CDT Quincy Coulter RN * Does person have serious difficulty walking/climbing stairs? Answer Date of Assessment Author No 07/08/2023 12:00 PM CDT Quincy Coulter RN * Does person have difficulty dressing/bathing? Answer Date of Assessment Author No 07/08/2023 12:00 PM CDT Quincy Coulter RN * Does person have difficulty doing errands alone? Answer Date of Assessment Author No 07/08/2023 12:00 PM CDT Quincy Coulter RN documented as of this encounter Mental Status * Does person have difficulty concentrating/remembering/making decisions? Answer Entry Date Author No 07/08/2023 12:00 PM CDT Quincy Coulter RN documented in this encounter Miscellaneous Notes * Telephone Encounter - Jorden Sotelo MA - 04/21/2025 3:09 PM CDT Provider will not be in office at the of April so patient has been rescheduled to next available opening for provider. documented in this encounter Plan of Treatment Upcoming Encounters Date Type Department Care Team (Late st Contact Info) Description 12/01/2025 11:00 AM ADVANCED SEAL DELIVERY SYSTEM Office Visit [facility] Pul[facility]ology [address] [place] [address], [place] [address] Kiarra Bernabe MD [address] [place] [address] DIV OF PULMONARY/[place] [phone] documented as of this encounter Goals Goal Patient Goal Type Associated Problems Recent Progress Patient-Stated? Author Medication Management General On track( 023 9:37 AM ADVANCED SEAL DELIVERY SYSTEM) Isaías Pires, RN Note: Expected end date: Interventions: Take all medications as prescribed Let your doctor know right away about any changes in your medications Make sure to request a refill of your medication at least one week prior to your last dose documented as of this encounter Visit Diagnoses Not on filedocumented in this encounter Care Teams Applications Sales Consultant Relationship Specialty Start Date End Date A, Unknown Practice [address] [place] [address] PCP - General 07/05/23 documented as of this encounter
--- OUTSIDE RECORDS SUMMARY | 2025-07-11 11:29 | XMS_ITS | Clinical Summary ---
Author Organization [facility] Address [address] [place] [address] Phone Care Team Providers Care Ground Wirer Name Role Phone Davida Pedraza MD Primary Care Provider [phone] Allergies Active Allergy Reactions Criticality Noted Date [...] hours. 60 Tablet 1 11/24/2018 2:20 PM TOOL DRESSER 9 Active Additional Information Patient taking differently:1,000 mg OralEVERY 8 HOURS PRN, Pain, Informant: Family, Reported on 06/10/2019 apixaban (ELIQUIS) 2.5 mg tablet Take 1 Tablet (2.5 mg) by mouth 2 times daily. 20 Tablet 11/24/2018 2:20 PM TOOL DRESSER 9 Active sennosides-docu sate sodium (SENNA-S) 8.6-50 mg tablet Take 1 Tablet by mouth 2 times daily. 40 Tablet 1 11/24/2018 2:20 PM TOOL DRESSER 9 Active saw palmetto xtr/zinc picolin (SAW [...] 6:27 PM CDT Height 175.3 cm (5' 9) 06/17/2019 6:27 PM CDT Body Mass Index 35.59 06/17/2019 6:27 PM CDT Plan of Treatment Health Maintenance Due Date Last Done Comments DTAP/TDAP/TD VACCINES (1 - Tdap) 1980 COLORECTAL SCREENING 2006 Colorectal Cancer Screening 2006 FIT-DNA Q 3 years 2006 FIT/FOBT Q 1 year 2006 Flex Sig/CT Colonography Q 5 years 2006 ZOSTER VACCINE (1 of 2) 2011 INFLUENZA VACCINE (#1) 2025 RSV VACCINE (60+ or ) (1 - 1-dose 75+ series) 2036 Medical Devices Implanted Type Area Stock Preparation Operator Device Identifier Shelf Expiration Date Model / Serial / Lot Cement Smartset 40gr 3092-040 - Sna Implanted:Qty : 1 on 11/23/2018 by Lorenzo Kim MD at [facility] Cement Right: Knee [employer] 03/27/2020 [id number] / NA / [id number] Cement Smartset Hv 40gr 3092-040 - [id number] Implanted:Qty : 1 on 06/17/2019 by Lorenzo Kim MD at [facility] Cement Left: Knee [employer] 10/28/2020 [id number] / / [id number] Patella Attune Dome 38mm 1518--038 - Sna Implanted:Qty : 1 on 11/23/2018 by Lorenzo Kim MD at [facility] Knee Right: Knee [employer] 09/27/2023 [id number] / NA / [id number] Description:ENRIQUETA REQ [id number] Comp Tib Attn Fb Cmnt Sz7 1506-70-007 - Sna Implanted:Qty : 1 on 11/23/2018 by Lorenzo Kim MD at [facility] Knee Right: Knee [employer] 08/27/2028 1506-70-007 / NA / [id number] Comp Fem Attn Cr Cmnt Sz8 1504-00-208 - Sna Implanted:Qty : 1 on 11/23/2018 by Lorenzo Kim MD at [facility] Knee Right: Knee [employer] 04/27/2028 [id number] / NA / [id number] Ins Attn Fb Cr Sz8 5mm 1516-20-805 - Sna Implanted:Qty : 1 on 11/23/2018 by Lorenzo Kim MD at [facility] Knee Right: Knee [employer] 08/27/2023 [id number] / NA / [id number] Ins Attn Fb Cr Sz8 6mm 1516-20-806 - [id number] Implanted:Qty : 1 on 06/17/2019 by Lorenzo Kim MD at [facility] Knee Left: Knee [employer] 09/27/2023 [id number] / / [id number] Patella Attune Dome 38mm 1518-20-038 - [id number] Implanted:Qty : 1 on 06/17/2019 by Lorenzo Kim MD at [facility] Knee Left: Knee [employer] 04/27/2024 [id number] / / [id number] Comp Fem Attn Ps Cmnt Sz8 1504-00-108 - [id number] Implanted:Qty : 1 on 06/17/2019 by Lorenzo Kim MD at [facility] Knee Left: Knee [employer] 07/28/2028 [id number] / / [id number] Description:[id number] Dupe See New [id number] Old [id number] Comp Tib Attn Fb Cmnt Sz7 1506-70-007 - Old - [id number] Implanted:Qty : 1 on 06/17/2019 by Lorenzo Kim MD at [facility] Knee Left: Knee [employer] 12/26/2028 [id number]-[id number] LD / / [id number] Explanted Type Area Stock Preparation Operator Device Identifier Shelf Expiration Date Model / Serial / Lot Tibia Acl Screw X 1 Explanted:Qty: 1 on 11/23/2018 at [facility] Right: Knee Insurance BCBS BLUE ACCESS CHOICE RX [employer] Express RX [employer] Commercial Advance Directives For more information, please contact: [phone] * Full Code (Latest Code Status on File) Date Activated Date Inactivated Comments 06/17/2019 6:26 PM 06/18/2019 6:30 PM * Full Code Date Activated Date Inactivated Comments 06/17/2019 11:24 AM 06/17/2019 6:26 PM * Full Code Date Activated Date Inactivated Comments 11/23/2018 1:24 PM 11/24/2018 4:56 PM Care Teams Ground Wirer Relationship Specialty Start Date End Date Davida Pedraza MD PCP - General Family Practice 12/08/18
[2025-07-11 11:40] LABS: INR 1.1; Partial Thromboplastin Time 26.2 Seconds (22.3-36.8); Prothrombin Time 14.1 Seconds (11.1-14.7)
[2025-07-11 12:00] LABS: Anion Gap 9 mmol/L (4-12); Blood Urea Nitrogen 19 mg/dL (9-20); Calcium 8.9 mg/dL (8.4-10.2); Carbon Dioxide 25 mmol/L (22-30); Chloride 104 mmol/L (98-107); Estimated Glomerular Filt Rate > 60; Glucose 105 mg/dL (65-110); Potassium 4.5 mmol/L (3.4-5.0); Sodium 138 mmol/L (137-145)
== END 2025-07-11 10:00 | disposition home or self-care (01) ==
LOC: ANHSURGERY 10:02
PROVIDERS: PCP Family Medicine; Visit Provider Neurological Surgery
DX: R94.31 Abnormal electrocardiogram [ECG] [EKG] (principal); M48.07 Spinal stenosis, lumbosacral region
CPT/HCPCS: 36415; 80048; 81003; 85027; 85610; 85730; 93005

== ENCOUNTER 2025-07-26 14:10 | Observation (INO) | payer MEDICARE, SELFPAY ==
[2025-07-11 10:10] VITALS: BP 130/89; PULSE 76; RESP 16; TEMP 36.7; O2SAT 98; BMI 35.6
--- NOTE | 2025-07-11 10:30 | PC.NURSE ---
[facility] has started construction of its new state of the art ER which will open Spring 2026. With this, we anticipate parking may be a challenge for some our surgical patients and families. Parking spaces are limited but are available for all Surgical, obstetrics, and ER patients sharing this lot. If you arrive and find you are having a hard time finding a parking space, please note that we understand the challenges, please drive around the hospital and park near Hospital Entrance 1. When you enter this entrance, you can ask a volunteer to direct or take you back to the surgical waiting area to check in. We appreciate everyone?s understanding of these expected challenges while we build for your future. Report to the Outpatient Waiting Room, entrance under the green pavilion located off [address], at time __6:00AM___ on date ___07/25/25__. Planned Procedure Time: __7:30AM____.? Time changes happen often and if your time is changed the preop area will call you the afternoon before. - You and your visitor will be asked to self-screen and do not enter if you have any COVID symptoms. Please call surgeon if you need to reschedule. - A mask is optional within the hospital at this time. Patients may have clear liquids (water, carbonated beverages, clear teas, apple juice) until 3 hours prior to surgery (4:30AM) with a maximum of 20 ounces. - No food from midnight until time of surgery and no smoking, or chewing tobacco (or any form of nicotine). No chewing gum, candy or mints. Take only the following medications with a SIP of water on the morning of surgery: ____NONE DO NOT STOP ANY OF YOUR OTHER PRESCRIPTION MEDICATIONS PRIOR TO SURGERY EXCEPT THE FOLLOWING Hold all vitamins and supplements for 3 days per anesthesiologist. Medications to discontinue per physician HOLD ELIQUIS PER DR LOPEZ. (PATIENT CONFIRMING WITH OFFICE). Date to take last dose Please no make-up, nail yi, hairspray, perfume, deodorant, or body powder the day of surgery.? No jewelry (including any body piercings) or valuables the day of surgery, leave them at home.? Please take a shower or bath the night before, or the morning of, surgery with an antibacterial soap.? Wear comfortable, loose fitting clothing.? - Jewelry must be removed prior to entering the operating room.? Rings and piercings that are not removed may be cut off. - The hospital will not accept responsibility for valuables.? - Please leave all valuables, including medications, at home the day of surgery. If you are going home after surgery, a licensed cryogenic transport driver must drive you home.? - NO public transportation without another adult if you receive anesthesia. - We recommend that an adult stay with you for 24 hours following discharge. - We also recommend that you do not drive, make important decision, drink alcoholic beverages, or take any drugs that were not prescribed by your health care provider for at least 24 hours after your discharge time. Follow any additional instructions given to you from your surgeon. Telephone instructions given to ____PATIENT & WIFE and asked if any additional questions and then verbalized understanding. Patient advised to call surgeon office or pre surgery nurse liaison [phone] if any additional questions.
[2025-07-25] VITALS (13 sets, daily range): BP systolic 128–162; BP diastolic 76–94; PULSE 80–100; RESP 10–20; TEMP 36–36.5; O2SAT 94–100
--- OUTSIDE RECORDS SUMMARY | 2025-07-25 00:16 | XMS_ITS | Encounter Summary ---
Author Organization [facility] Address [address] [facility] [place] [address] Care Team Providers Care Distance Education Teacher Name Role Phone A, Unknown Practice Primary Care Provider [phone] Reason for Visit * Reason Onset Date Comments Appointment 04/21/2025 Encounter Details Date Type Department Care Team ([facility] st Contact Info) Description 04/21/2025 Telephone [facility] [address] [facility], [place] [address] Kiarra Bernabe MD [address] [place] [address] DIV OF PULMONARY/[place] [address] Appointment Social History Tobacco Use [...] care, and heating? Not very hard 07/09/2023 [facility] of Occupat ional Health - Occupational Stress [...] place to sleep or slept in a senior care (including now)? No 07/09/2023 Sex and Gender [...] st Contact Info) Description 12/01/2025 11:00 AM AUDIOMETRIC TECHNICIAN Office Visit [facility] - Pulmonology [address] [place] [address], [place] [address] Kiarra Bernabe MD [address] [place] [address] DIV OF PULMONARY/[place] [phone] documented as of this encounter Goals Goal Patient Goal Type Associated Problems Recent Progress Patient-Stated? Author Medication Management General On track( 023 9:37 AM AUDIOMETRIC TECHNICIAN) Isaías Pires, RN Note: Expected end date: Interventions: Take all medications as prescribed Let your doctor know right away about any changes in your medications Make sure to request a refill of your medication at least one week prior to your last dose documented as of this encounter Visit Diagnoses Not on filedocumented in this encounter Care Teams Distance Education Teacher Relationship Specialty Start Date End Date A, Unknown Practice [address] [place] [address] PCP - General 07/05/23 documented as of this encounter
--- OUTSIDE RECORDS SUMMARY | 2025-07-25 00:16 | XMS_ITS | Clinical Summary ---
Author Organization [facility] Address [address] [facility] [place] [address] Care Team Providers Care Bias Machine Operator Name Role Phone A, Unknown Practice Primary Care Provider Source Comments [facility],non-owned Affiliates and Associated Physician Practices is amultiple site organization consisting of ambulatory clinics and hospital sitesin [place], [place], [place] and [place]. This disclosure is being madepursuant to the Care Everywhere program and may not contain all information available regarding this patient. Last updated 18.[facility] Allergies Active Allergy Reactions Criticality Noted Date [...] Office Visit [facility] - Pulmon[facility] [facility], [place] [address] Kiarra Bernabe MD Pulmonary embolism and infarction (HCC) (Primary Dx) 06/23/2025 Travel from Last 3 Months Family History [...] care, and heating? Not very hard 07/09/2023 [facility] of Occupat ional Health - Occupational Stress [...] place to sleep or slept in a correction (including now)? No 07/09/2023 Sex and Gender [...] 36.7 C (98 F) 08/13/2023 9:30 AM GUT SORTER Respiratory Rate 17 06/23/2025 10:32 AM CDT Oxygen Saturation 95% 06/23/2025 10:32 AM CDT Inhaled Oxygen Concentration - - Weight 114.8 kg (253 lb) 06/23/2025 10:32 AM CDT Height 175.3 cm (5' 9) 06/23/2025 10:32 AM CDT Body Mass Index 37.36 06/23/2025 10:32 AM CDT Plan of Treatment Upcoming Encounters Date Type Department Care Team (Late st Contact Info) Description 12/01/2025 11:00 AM GUT SORTER Office Visit [facility] - Pulmonology [address] [place] [address], [place] [phone] Kiarra Bernabe MD [address] [place] [address] OF PULMONARY/[place] [phone] Health Maintenance Due Date Last Done Comments [...] Management General On track( 023 9:37 AM GUT SORTER) Isaías Pires, RN Note: Expected end date: [...] 6.4(H) <=5.6 % 07/10/2023 11:22 AM CDT [facility] Estimated Average Glucose 137 mg/dL 07/10/2023 11:22 AM CDT [facility] Comment: HbA1c Interpretation: Normal : < 5.7% Pre-diabetes: 5.7-6.4% Diabetes: Equal to or greater than 6.5% Test results diagnostic of diabetes should be repeated for confirmation. Treatment target values recommended by ADA and other clinical organizations should be used to evaluate metabolic control in patients. Reference: [place] Diabetes Association, Standards of Care in Diabetes -2020 In patients 70 years and older consider HbA1c target range of 7.0-7.5% (Reference: Joe Mccullough et al. JAMDA. 2012) The Sebia assay for the measurement of HbA1c is a National Glycohemoglobin Standardization Program (NGSP) certified method. Blood BLOOD SPECIMEN / Unknown Lab Venipuncture / Unknown 07/10/2023 2:58 AM CDT 07/10/2023 4:05 AM CDT us Quincy Salinas MD LAB - CHEMISTRY ORDERABLES Final Result [facility] [address] [place] [address], [facility] [phone] from Last 3 Months or Most Recently Relevant to Health Maintenance Insurance [facility] [place] [address] Advance Directives * Full Code (Latest Code Status on File) Date Activated Date Inactivated Comments 07/08/2023 8:30 AM 07/10/2023 4:32 PM Care Teams Bias Machine Operator Relationship Specialty Start Date End Date A, Unknown Practice [address] [place] [address] PCP - General 07/05/23
--- OUTSIDE RECORDS SUMMARY | 2025-07-25 00:16 | XMS_ITS | Clinical Summary ---
Author Organization [facility] Address [address] [place] [address] Care Team Providers Care Faculty Research Assistant Name Role Phone Non-Staff, Provider Primary Care Provider Yelitza shaffer Social History Tobacco Use Types Packs/Day Years Used Date Smoking Tobacco: Never Assessed Sex and Gender Information Value Date Recorded Sex Assigned at Male 11/03/2024 11:43 AM SUPERINTENDENT AUTOMOTIVE Legal Sex Male 1:35 PM SUPERINTENDENT AUTOMOTIVE Gender Identity Not on file Sexual Orientation Not on file Plan of Treatment Health Maintenance Due Date Last Done Comments Colorectal Cancer Screening Colonoscopy (10 Years) 1961 Annual Physical 1964 Hepatitis C 1979 DTaP, Tdap and Td Vaccines ( 1 - Tdap) 1980 Pneumococcal Vaccine: 50+ Ye ars (1 of 1 - PCV) 2011 Zoster Vaccines (1 of 2) 2011 COVID-19 Vaccine (1 - 2024-2 6 season) 2025 Influenza Adult (#1) 2025 RSV Immunization or 60+ Years (1 - 1-dose 75+ series) 2036 Hepatitis A Vaccines Aged Out No long er eligible based on patient's age to complete this topic Meningococcal B Vaccine Aged Out No l onger eligible based on patient's age to complete this topic Meningococcal Vaccine Aged Out No lillian fidel eligible based on patient's age to complete this topic RSV Immunizations Under 20 Months Aged Out No longer eligible based on patient's age to complete this topic Insurance [facility] MEDICARE Care Teams Faculty Research Assistant Relationship Specialty Start Date End Date Non-Staff, Provider PCP - General UNKNOWN PHYSICIAN SPECIALTY 11/03/24
--- OUTSIDE RECORDS SUMMARY | 2025-07-25 00:17 | XMS_ITS | Clinical Summary ---
Author Organization [facility] Address [address] [place] [address] Phone Care Team Providers Care Overhead Cleaner Name Role Phone Davida Pedraza MD Primary Care Provider [phone] Allergies Active Allergy Reactions Criticality Noted Date [...] hours. 60 Tablet 1 11/24/2018 2:20 PM SECURITIES CONSULTANT 9 Active Additional Information Patient taking differently:1,000 mg OralEVERY 8 HOURS PRN, Pain, Informant: Family, Reported on 06/10/2019 apixaban (ELIQUIS) 2.5 mg tablet Take 1 Tablet (2.5 mg) by mouth 2 times daily. 20 Tablet 11/24/2018 2:20 PM SECURITIES CONSULTANT 9 Active sennosides-docu sate sodium (SENNA-S) 8.6-50 mg tablet Take 1 Tablet by mouth 2 times daily. 40 Tablet 1 11/24/2018 2:20 PM SECURITIES CONSULTANT 9 Active saw palmetto xtr/zinc picolin (SAW [...] series) 2036 Medical Devices Implanted Type Area Transportation Inspector Device Identifier Shelf Expiration Date Model / Serial / Lot Cement Smartset 40gr 3092-040 - Sna Implanted:Qty : 1 on 11/23/2018 by Lorenzo Kim MD at [facility] Cement Right: Knee [employer] 03/27/2020 [id number] / NA / [id number] Cement Smartset Hv 40gr 3092-040 - [id number] Implanted:Qty : 1 on 06/17/2019 by Lorenzo Kim MD at [facility] Cement Left: Knee [employer] 10/28/2020 [id number] / / [id number] Patella Attune Dome 38mm 1518--038 - Sna Implanted:Qty : 1 on 11/23/2018 by Lorenzo Kim MD at [facility] Knee Right: Knee [employer] 09/27/2023 [id number] / NA / [id number] Description:ENRIQUETA REQ [id number] Comp Tib Attn Fb Cmnt Sz7 1506-70-007 - Sna Implanted:Qty : 1 on 11/23/2018 by Lorenzo Kim MD at [facility] Knee Right: Knee [employer] 08/27/2028 1506-70-007 / NA / [id number] Comp Fem Attn Cr Cmnt Sz8 1504-00-208 - Sna Implanted:Qty : 1 on 11/23/2018 by Lorenzo Kim MD at [facility] Knee Right: Knee [employer] 04/27/2028 [id number] / NA / [id number] Ins Attn Fb Cr Sz8 5mm 1516-20-805 - Sna Implanted:Qty : 1 on 11/23/2018 by Lorenzo Kim MD at [facility] Knee Right: Knee [employer] 08/27/2023 [id number] / NA / [id number] Ins Attn Fb Cr Sz8 6mm 1516-20-806 - [id number] Implanted:Qty : 1 on 06/17/2019 by Lorenzo Kim MD at [facility] Knee Left: Knee [employer] 09/27/2023 [id number] / / [id number] Patella Attune Dome 38mm 1518-20-038 - [id number] Implanted:Qty : 1 on 06/17/2019 by Lorenzo Kim MD at [facility] Knee Left: Knee [employer] 04/27/2024 [id number] / / [id number] Comp Fem Attn Ps Cmnt Sz8 1504-00-108 - [id number] Implanted:Qty : 1 on 06/17/2019 by Lorenzo Kim MD at [facility] Knee Left: Knee [employer] 07/28/2028 [id number] / / [id number] Description:[id number] Dupe See New [id number] Old [id number] Comp Tib Attn Fb Cmnt Sz7 1506-70-007 - Old - [id number] Implanted:Qty : 1 on 06/17/2019 by Lorenzo Kim MD at [facility] Knee Left: Knee [employer] 12/26/2028 [id number] / / [id number] Explanted Type Area Transportation Inspector Device Identifier Shelf Expiration Date Model / Serial / Lot Tibia Acl Screw X 1 Explanted:Qty: 1 on 11/23/2018 at [facility] Right: Knee Insurance BC[employer] BLUE ACCESS CHOICE RX [employer] Commercial Advance Directives For more information, please contact: [phone] * Full Code (Latest Code Status on File) Date Activated Date Inactivated Comments 06/17/2019 6:26 PM 06/18/2019 6:30 PM * Full Code Date Activated Date Inactivated Comments 06/17/2019 11:24 AM 06/17/2019 6:26 PM * Full Code Date Activated Date Inactivated Comments 11/23/2018 1:24 PM 11/24/2018 4:56 PM Care Teams Overhead Cleaner Relationship Specialty Start Date End Date Davida Pedraza MD PCP - General Family Practice 12/08/18
[2025-07-25] MEDS: LACTATED RINGERS 1,000 ML 30 ML IV CONT ×2 (06:30→11:05)
--- NOTE | 2025-07-25 07:32 | WPDANESEPPF ---
Anes - Initial Pre Proc Eval Procedure: Operation Date: 07/25/25 07:30 Proposed Procedures p L5-S1, Posterior Lumbar Interbody Fusion - Geogre Richardson MD s L3-4 Lumbar HemiLaminectomy - George Richardson MD Date/Time: 07/25/25 07:32 Surgeon: George Richardson MD Pre Op Diagnosis: spondylosis , lumb stenois, neural foraminal narro Patient Data Age: 65 Gender: M Height: 1.75 m Weight: 111.4 kg Last Vital Signs Temp 97.1 F L 07/25/25 07:20 Pulse 80 07/25/25 07:20 Resp 18 07/25/25 07:20 BP 141/81 H 07/25/25 07:20 Pulse Ox 97 07/25/25 07:20 O2 Del Method Room Air 07/25/25 07:20 Allergies Allergy/AdvReac Type Severity Reaction Status Date / Time naproxen (From Aleve) Allergy Severe Swelling Verified 07/25/25 07:16 of Lip/Tongue/Throat Home Medications ?Medication ?Instructions ?Recorded ?Confirmed ?Type omeprazole 40 mg capsule,delayed 40 mg PO DAILY #90 caps 05/31/24 07/11/25 Rx release apixaban 2.5 mg tablet (Eliquis) 2.5 mg PO Q12H 07/29/24 07/25/25 History atorvastatin 40 mg tablet 40 mg PO DAILY #90 tabs 03/29/25 07/11/25 Rx Laboratory Tests 07/25/25 06:30 Blood Type A Positive Antibody Screen Pending Patient hx anesthesia problems: none Family hx anesthesia problems: none Results Review: All pre-operative results and documents have been reviewed as part of the pre-operative evaluation. 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 Bairon Harris Hx of total knee arthroplasty Family History Family History Father Patient's father is in good health Family history of premature coronary heart disease, Onset Age: 62 Sibling Family history of malignant neoplasm of breast in first degree relative Social History Social History (Updated 04/25/25 @ 14:46 by Thea Orourke [facility]) Social History: Smoking status: Never smoker Second hand tobacco smoke exposure: No Alcohol intake: current Alcohol use details: Rarely Substance use: current Substance use type: marijuana Other substance usage details: MAY HAVE A MARIJUANA GUMMY 1-2 A MONTH FOR PAIN ISSUES Do You Feel Safe in your Home?: Yes Lack of Transportation: No Lack of Food: Never True Current Housing: I Have Housing Concerned About Future Housing: No Difficulty Paying Gas/Electric Bills: No Difficulty Paying for Meds: No Currently Unemployed: YES Education: Trade/Vocational Certificate Difficulty w/ Childcare or Family Care: No Living arrangements: with family Additional living arrangements comments: Occupation/Education: retired Gender identity (if verbalized by the patient): Male Sexual Orientation (if Verbalized by the Patient): Straight or Heterosexual Spiritual care concerns: No Anes - Eval Final PreProcedure Day of Procedure 07/25/25 07:32 Patient weight: obese Heart: regular rate and rhythm Lungs: clear to auscultation Airway: Mallampati scale class III Neurological: alert and oriented Last oral intake: >/= 8 hours ASA classification: III Emergent: no Anesthetic plan: proceed Anesthesia type and monitoring: general ETT and standard monitoring Results Review: All pre-operative results and documents have been reviewed as part of the pre-operative evaluation. Informed Consent: The patient's anesthetic plan and its attendant risks and benefits were discussed with the patient/family/POA. Questions were solicited and answers provided to the satisfaction of the patient/family/POA.
--- NOTE | 2025-07-25 07:34 | PM.IMHP ---
H&P: HPI History of Present Illness Date/Time: 07/25/25 07:34 Chief Complaint: Igor is a 64-year-old gentleman with a past medical history significant for an L4-5 posterior lumbar interbody fusion done 20 years ago. Took him some time to recover from that operation but it did help him after that. Now for the last year or so he started having pain in a bandlike fashion the lumbosacral area which extends into the upper buttocks may be slightly worse in the left paraspinal area without inciting event and without radiation into his lower extremities. He does not note any specific muscle group weakness or dermatomal numbness of either lower extremity. The pain seems to be worse with ambulation but is also present with rest. He has difficulty moving the left leg, specifically, especially flexing at the hip because of pain in the low back. He has had a number of injections including of the epidural space at L5-S1 and the sacroiliac joints. He has also had intra-articular hip injections. None of these have been significantly helpful for him. While there is some indication that SI joint injections helped him, he is not certain of that at this point. He takes tramadol. He is on Eliquis because of a pulmonary embolus that occurred in 2022. Review of Systems Review of Systems: All systems reviewed & are unremarkable except as noted in HPI and below Denies chills, Denies fever, Denies weight gain and Denies weight loss Eyes Denies change in vision and Denies diplopia ENT Denies disequilibrium Card Denies chest pain and Denies dyspnea Resp Denies cough and Denies dyspnea GI Denies abdominal pain, Denies change in bowel habits, Denies fecal incontinence and Denies vomiting Denies hematuria, Denies oliguria, Denies difficulty urinating, Denies dysuria, Denies urinary frequency, Denies urinary hesitancy, Denies urinary incontinence and Denies urinary urgency Musc Reports as per HPI Skin/ Breast Reports system reviewed and no additional complaints, except as documented Neuro Reports as per HPI Psych Reports no additional complaints, Denies depression and Denies hopelessness Endo Reports no additional complaints and Denies polyuria Emeterio/ Lymph Reports no additional complaints Aller/ Immun Reports no additional complaints PMFSH Past Medical History Medical History Pre-op testing Pollen allergies Overactive bladder Neoplasm of uncertain behavior of skin Mixed hyperlipidemia Migraine without aura Essential (primary) hypertension Erosion of nasal septum Erectile dysfunction of non-organic origin Elevated fasting glucose Dizziness Arthritis of knee Saddle embolism of pulmonary artery History of blood clots Saddle Blood Clot - Lungs Hypertension Hyperlipidemia Arthritis Surgical History Surgical History History of knee surgery x8 total - including 2 replacements History of bilateral knee replacement History of rotator cuff surgery History of back surgery x2 Surgeries: Fusion L4-5; Discectomy Lower Back (Doesn't remember levels) - Dr. Bairon Harris Hx of total knee arthroplasty Family History Family History Father Patient's father is in good health Family history of premature coronary heart disease, Onset Age: 62 Sibling Family history of malignant neoplasm of breast in first degree relative Social History Social History (Updated 04/25/25 @ 14:46 by Thea Orourke CMA) Social History: Smoking status: Never smoker Second hand tobacco smoke exposure: No Alcohol intake: current Alcohol use details: Rarely Substance use: current Substance use type: marijuana Other substance usage details: MAY HAVE A MARIJUANA GUMMY 1-2 A MONTH FOR PAIN ISSUES Do You Feel Safe in your Home?: Yes Lack of Transportation: No Lack of Food: Never True Current Housing: I Have Housing Concerned About Future Housing: No Difficulty Paying Gas/Electric Bills: No Difficulty Paying for Meds: No Currently Unemployed: YES Education: Trade/Vocational Certificate Difficulty w/ Childcare or Family Care: No Living arrangements: with family Additional living arrangements comments: Occupation/Education: retired Gender identity (if verbalized by the patient): Male Sexual Orientation (if Verbalized by the Patient): Straight or Heterosexual Spiritual care concerns: No Meds Home Medications and Allergies Home Medications ?Medication ?Instructions ?Recorded ?Confirmed ?Type omeprazole 40 mg capsule,delayed 40 mg PO DAILY #90 caps 05/31/24 07/11/25 Rx release apixaban 2.5 mg tablet (Eliquis) 2.5 mg PO Q12H 07/29/24 07/25/25 History atorvastatin 40 mg tablet 40 mg PO DAILY #90 tabs 03/29/25 07/11/25 Rx Allergies Allergy/AdvReac Type Severity Reaction Status Date / Time naproxen (From Aleve) Allergy Severe Swelling Verified 07/25/25 07:16 of Lip/Tongue/Throat Vital Signs Vital Signs - 24 hr 07/25/25 07:20 Temperature 97.1 F L Pulse Rate 80 Respiratory Rate 18 Blood Pressure 141/81 H Pulse Oximetry 97 Oxygen Delivery Room Air Exam Narrative: Other: General: cooperative, no acute distress, well developed, alert and awake Orientation/Consciousness: oriented to person, oriented to place and oriented to time Constitutional Limitations: no limitations Other: The patient is a normally developed, normal appearing male sitting on the examination table in some distress. He is awake, alert, and oriented x3 with good fund of knowledge, recall of events, and fluent speech. HENMT Head: normocephalic and atraumatic Ears: external ears normal Face/Nose/Sinus: Normal external nose present Eyes Eyelids: eyelids normal Pupils: Yes Pupils normal by confrontation EOM: EOMs intact bilaterally Neck General: Yes no meningeal signs, Yes supple and Yes no JVD Resp Effort/Inspection: normal respiratory effort and able to speak in complete sentences Cardio Rate: Yes regular rate GI Inspection: No abdominal distension Musc Other: Examination of the back reveals no tenderness. Range of motion of the back is limited secondary to pain in forward flexion, extension, and lateral rotation to both sides. Straight leg raise is negative bilaterally. Osmin?s test is negative bilaterally. it did cause pain in the left side of the back on the left. Skin General: normal color Neuro General: Yes oriented to person, Yes oriented to place, Yes oriented to time, Yes normal cognition and Yes no meningeal signs Cranial Nerves: Yes CN's II-XII intact bilaterally Other: Motor: Strength is normal, 5/5, throughout all muscle groups of the bilateral lower extremities to direct confrontation. Sensory: Sensation is intact to light touch throughout the upper and lower extremities bilaterally. Reflexes: Deep tendon reflexes are difficult to elicit the knees or ankles bilaterally. There is no clonus. Gait: Gait, station, and transfers are independent and steady for short periods of time and over short distances. Psych Appearance: grossly normal Mental status: Yes mental status grossly normal Mood: congruent mood Affect: Yes normal affect Speech/Movement: Normal speech and movement present Attitude: Yes cooperative Thought Content: Normal thought content present Review of studies: MRI of the lumbar spine was personally reviewed by me. This was done on 11/03/2024. This demonstrates severe central canal stenosis at L3-4. There is stable appearing anterior lumbar interbody fusion at L4-5. There is severe degeneration of the disc at L5-S1 with severe bilateral neural foraminal narrowing and severe spondylosis. Assessment and Plan Assessment and plan (1) Lumbar degenerative disc disease: Qualifiers: Disc-related pain type: lower extremity pain only Qualified Code(s): M51.361 - Other intervertebral disc degeneration, lumbar region with lower extremity pain only Code(s): M51.369 - Other intervertebral disc degeneration, lumbar region without mention of lumbar back pain or lower extremity pain Status: Acute (2) Lumbar spinal stenosis due to adjacent segment disease after fusion procedure: Code(s): M48.061 - Spinal stenosis, lumbar region without neurogenic claudication; M51.369 - Other intervertebral disc degeneration, lumbar region without mention of lumbar back pain or lower extremity pain; Z98.1 - Arthrodesis status Status: Acute (3) Lumbar stenosis: Code(s): M48.061 - Spinal stenosis, lumbar region without neurogenic claudication Status: Acute (4) Foraminal stenosis of lumbosacral region: Code(s): M48.07 - Spinal stenosis, lumbosacral region Status: Acute Plan I have recommended to Mr. Reilly that he address the spinal pathology before proceeding with management of any potential sacroiliac issues. I therefore recommended him posterior lumbar interbody fusion or or posterolateral fusion, depending upon whether not the disc space will open, at L5-S1 and a left-sided hemilaminectomy to deal with the stenosis at L3-4 and I described to him that operation, its risks, potential benefits, the operative and postoperative course in detail and answered all the questions personally. We discussed risks including but not limited to permanent neurologic deficit secondary to nerve root injury, need for reoperation secondary to infection, bleeding, CSF leak, adjacent level disease, recurrent residual pathology or instability, malposition migration of the hardware or nonunion, failure of the procedure to relieve his pain or symptoms, persistent pain, medical complications related anesthesia or surgery, etc.. He indicates understanding and elects to proceed with that operation. I think there is a fairly significant chance that he may have left sacroiliac joint pathology that may need to be addressed in the future but I would prefer to do with this at a later operation.
--- NOTE | 2025-07-25 07:40 | WPDHPUPDATE1 ---
History and Physical Update Update Date/Time: 07/25/25 07:40 History and Physical has been reviewed, including an updated exam of the patient. There are NO changes in the patient's condition. Risks, benefits, and alternatives have been discussed and questions answered. Patient agrees to proceed with procedure.
[2025-07-25] MEDS: ceFAZolin 2 GM in SODIUM CHLORIDE 0.9% IV 50 ML 100 ML IVPB (07:47)
[2025-07-25] MEDS: LIDO 1%/EPINEPHRINE 1:100,000 20 ML VIAL 30 ML INFILTRATE (08:47)
[2025-07-25] MEDS: LACTATED RINGERS 1,000 ML 125 ML IV CONT (11:05)
--- NOTE | 2025-07-25 12:35 | ADMGEN ---
This patient, Igor Reilly II, was admitted to 2 Medical Room 242-. Patient/family oriented to hospital policies and general routines including ID bracelet, bed and alarms, visiting hours, pain management, procedures, bathroom and other care routines, personal items, smoking policy, room service/diet, and visiting hours. Information on how to activate the Rapid Response Team has been discussed. Patient/Family are encouraged to report perceived risks to care and to ask questions if they do not understand what they are told or what they should do.
[2025-07-25] MEDS: KCL 20 MEQ/D5/0.45% SOD CHL 1,000 ML 100 ML IV CONT ×2 (13:23→23:29)
[2025-07-25] MEDS: HYDROcodone/acetaminophen (*CRX) 10-325 MG TABLET 1 TAB PO (14:24)
[2025-07-25] MEDS: ceFAZolin 1 GM in SODIUM CHLORIDE 0.9% IV 50 ML 100 ML IVPB ×2 (16:44→23:28)
--- NOTE | 2025-07-25 21:48 | P.OP_ITS ---
Procedure Note - Detailed Date of Procedure 07/25/25 Pre-op Diagnosis spondylosis , lumb stenois, neural foraminal narro Post-op Diagnosis Same Procedure Performed Left L3-4 hemilaminectomy, L5-S1 complete laminectomy and bilateral facetectomy, L5-S1 complete diskectomy and interbody arthrodesis utilizing titanium interbody devices, local autograft, L5-S1 pedicle screw instrumentation Surgeon George Richardson MD Anesthesia General Description of Procedure the patient was brought to the operating room in the supine position, was sedated, intubated and placed under general anesthesia in routine fashion. He was then turned into the prone position on an open [place] table. The area of operation on his back was examined, marked for incision, prepped and draped in routine sterile fashion. Incision was marked over the L3 through S1 spinous processes in the midline. This area was injected with 0.5% lidocaine with 1 200,000 epinephrine. Intravenous antibiotics given prior to incision. Incision was made with a 10 blade scalpel down to the lumbodorsal Fascia. A subperiosteal dissection of the muscle and soft tissue at L3-4 on the left bilaterally at L5-S1 was performed with a subperiosteal elevator and Bovie cautery. A verifying x-rays obtained to verify level of operation. On the left at L3-4 Midas-Hermes drill was used to perform a hemilaminectomy and medial facetectomy. a curved curette was used to lift the yellow ligament which was removed with Kerrison punches. First on the left than on the right curved curette was used to define a plane with the dura in the lateral recess. Kerrison punches were then used to remove overgrown bone and ligament bilaterally. This was done until a dental instrument could be placed in the lateral epidural space to confirm lack of compression. A synovial cyst was discovered on the left side and was removed during this part of the operation. The L5 spinous process was removed with a Kvng rongeur. Kerrison punches, curved curettes and a [place] rongeur were used to remove lamina in the midline until the soft contents of the canal were encountered. Midas-Hermes drill was used to resect the pars bilaterally at L5. The inferior articular process and facet of L5 could then be removed bilaterally. These plus spinous process were strip ped free of soft tissue and morselized for later use as interbody autograft. Kerrison punches and curved curettes were used to define a plane with the dura and removed bone and ligament flush with the pedicle and through the foramina widely decompressing the exiting nerve roots. With the thecal sac retracted and protected the disc space was entered bilaterally using an 11 blade scalpel. Scrapers of various sizes, curettes of various configurations, pituitary rongeur and a rasp were used to remove as much cartilaginous endplate and disc material as possible down to bleeding cortical flat surfaces and the opposing bones. The disc space was then incised and 8 mm interbody devices were chosen and filled with local autograft bone. The disc space was likewise filled with local autograft bone medially and anteriorly. The interbody devices were then placed to a 2-3 mm countersink within the disc space bilaterally. Pedicle screw instrumentation was then cannulated with a pedicle probe, checked for continuity with the ball probe, tapped with a 5.5 mm tap and a 6.5 x 50 mm screw was placed into each pedicle on each side. Rods were placed in the screw heads on either side and secured in position using the capsular that purpose. These were definitively tightened with the torque and anti torque device. A verifying x-rays obtained to verify good position of the instrumentation which was confirmed. The wound was copiously irrigated with bacitracin irrigation all bleeding stopped with bipolar and Bovie cautery Gelfoam thrombin powder. The wound was then closed in layered fashion with 2-0 Vicryl interrupted sutures in the lumbodorsal fascia and Douglas's layer. 3-0 Vicryl buried interrupted sutures were placed in the dermis and the skin was closed with a running 4-0 Monocryl subcuticular stitch and dressed with Dermabond. The patient was allowed to wake up in the operating room and was taken to the recovery room in stable condition. There were no immediate complications of this operation. All counts reported correct at the end of the case. Blood loss was 300 cc. The patient was neurologically at his baseline postoperatively. CPT codes: 70580, 75476, 92649, 71271, 39298, 43430, 55783 Estimated Blood Loss 300 Complications No immediate complications Condition Stable Disposition PACU [facility] Billing Surgery - Charge Forward: Surgery Billing
[2025-07-25] MEDS: DOCUSATE SODIUM 100 MG CAPSULE PO (23:29)
[2025-07-26] VITALS: PULSE 85; RESP 20; O2SAT 98
--- NOTE | ~2025-07-26 | XR_ITS ---
EXAMINATION: XR fluoroscopy no charge DATE: 07/25/2025 10:30 INDICATION: L5-S1 posterior lumbar interbody fusion TECHNIQUE: 6 fluoroscopic images of the lower lumbar spine were obtained during procedure performed by Dr. Richardson. Radiologist was not present for the imaging or procedure. The amount of fluoroscopy time used during this procedure was 0.1 minutes. Total DAP was 2.39 Gycm^2. COMPARISON: 10/14/2024 FINDINGS: Again seen is an L4-L5 anterior spinal fusion with anterior plate-screw fixation. Skin retractors and lap sponge markers project over the soft tissues posterior to the lower lumbar spine. The tip of metallic probe projects over the region of the L5-S1 facet joints. Subsequent images demonstrate L5-S1 discectomy with placement of an interbody fusion device as well as placement of bilateral pedicle screws at L5 and S1 for the planned posterior spinal fusion. IMPRESSION: 1. Fluoroscopy utilized during placement of an instrumented L5-S1 anterior and posterior spinal fusion. See procedure note for further detail. 2. Unchanged chronic solidly fused L4-L5 anterior spinal fusion with anterior plate-screw fixation. Reviewed, dictated and finalized at location A. IMPRESSION: 1. Fluoroscopy utilized during placement of an instrumented L5-S1 anterior and posterior spinal fusion. See procedure note for further detail. 2. Unchanged chronic solidly fused L4-L5 anterior spinal fusion with anterior p late-screw fixation.
[2025-07-26 03:11] VITALS: BP 134/76; PULSE 85; RESP 20; TEMP 36.5; O2SAT 98
[2025-07-26] MEDS: HYDROcodone/acetaminophen (*CRX) 10-325 MG TABLET 1 TAB PO ×2 (08:25→17:57)
[2025-07-26] MEDS: KCL 20 MEQ/D5/0.45% SOD CHL 1,000 ML 100 ML IV CONT (08:25)
[2025-07-26] MEDS: PANTOPRAZOLE 40 MG TABLET PO ×2 (08:25→20:21)
[2025-07-26] MEDS: DOCUSATE SODIUM 100 MG CAPSULE PO ×2 (08:25→20:21)
[2025-07-26] MEDS: ATORVASTATIN 40 MG TABLET PO (08:25)
[2025-07-26] MEDS: ceFAZolin 1 GM in SODIUM CHLORIDE 0.9% IV 50 ML 30 ML IVPB ×2 (08:26→17:08)
[2025-07-26 10:11] VITALS: BP 123/80; PULSE 95; RESP 18; TEMP 36.3; O2SAT 97
[2025-07-26] MEDS: CYCLOBENZAPRINE HCL 10 MG TABLET PO (11:29)
--- NOTE | 2025-07-26 12:13 | WPDNEUROSGPN ---
Progress Note: A&P Assessment and Plan (1) Status post spinal arthrodesis: Code(s): Z98.1 - Arthrodesis status Status: Acute Assessment and Plan: doing well. Continue PT/OT. Pain control. Pull johnson when ambulating to bathroom. Likely discharge tomorrow. Subjective Date/time seen: 07/26/25 0845 Interval history: doing well postop day 1. Pain well controlled. Has been ambulating well w/ walker. Sitting up in chair. Wants to stay 1 more night. Exam Narrative: A&O x4. Calm, cooperative, no acute distress. Incision C/D/I. Cranial nerves intact. Speech clear and fluent. Motor and sensation at baseline Objective Data Vital Signs Vital Signs: Vital Signs - 24 hr 07/25/25 12:15 07/25/25 12:40 07/25/25 12:55 Temperature 96.8 F L 97.5 F L Pulse Rate 87 85 86 Respiratory Rate 12 14 14 Blood Pressure 147/84 H 140/76 128/79 Pulse Oximetry 97 96 96 Oxygen Delivery Room Air 07/25/25 13:25 07/25/25 14:25 07/25/25 15:21 Temperature 97.5 F L 97.5 F L Pulse Rate 85 86 Respiratory Rate 14 14 Blood Pressure 142/86 H 142/87 H Pulse Oximetry 97 97 Oxygen Delivery Room Air 07/25/25 19:16 07/25/25 23:16 07/26/25 00:00 Temperature 97.7 F 97.7 F Pulse Rate 81 87 85 Respiratory Rate 20 20 20 Blood Pressure 149/92 H 146/77 H Pulse Oximetry 96 95 98 Oxygen Delivery Room Air 07/26/25 03:11 07/26/25 08:07 07/26/25 08:25 Temperature 97.7 F Pulse Rate 85 Respiratory Rate 20 Blood Pressure 134/76 Pulse Oximetry 98 Oxygen Delivery Room Air Room Air 07/26/25 10:11 Temperature 97.4 F L Pulse Rate 95 Respiratory Rate 18 Blood Pressure 123/80 Pulse Oximetry 97 Oxygen Delivery Intake/Output Intake/Output: Intake & Output 07/23/25 07/24/25 07/25/25 07/26/25 23:59 23:59 23:59 23:59 Intake Total 1590 1513.3 Output Total 2530 2370 Balance -940 -856.7 Meds/Results Medications: Active Medications Generic Name Dose Route Start Last Admin Trade Name Freq PRN Reason Stop Dose Admin Hydrocodone Bitart/Acetaminophen 1 tab 07/25/25 12:16 Hydrocodone/Acetaminophen (*Crx) 5-325 Mg Tablet PO Q4H PRN Mild Pain (1-3) Hydrocodone Bitart/Acetaminophen 1 tab 07/25/25 12:16 07/26/25 08:25 Hydrocodone/Acetaminophen (*Crx) 10-325 Mg Tablet PO 1 tab Q4H PRN Administration Moderate Pain (4-6) Al Hydrox/Mg Hydrox/Simethicone 20 ml 07/25/25 12:16 Mag Hydrox/Al Hydrox/Simeth 30 Ml Udc PO Q4H PRN Indigestion/Heartburn Atorvastatin Calcium 40 mg 07/26/25 09:00 07/26/25 08:25 Atorvastatin 40 Mg Tablet PO 40 mg DAILY RONA Administration Bisacodyl 10 mg 07/25/25 12:16 Bisacodyl 10 Mg Suppository RECTAL DAILY PRN Constipation Cyclobenzaprine HCl 10 mg 07/25/25 12:16 07/26/25 11:29 Cyclobenzaprine Hcl 10 Mg Tablet PO 10 mg TID PRN Administration Muscle Spasms Docusate Sodium 100 mg 07/25/25 21:00 07/26/25 08:25 Docusate Sodium 100 Mg Capsule PO 100 mg Q12HR RONA Administration Cefazolin Sodium 1 gm/ Sodium 50 mls @ 100 mls/hr 07/25/25 16:00 07/26/25 08:26 Chloride IVPB 30 mls/hr Q8H RONA Administration Potassium Chloride/Dextrose/Sod Cl 1,000 mls @ 100 mls/hr 07/25/25 12:16 07/26/25 08:25 Kcl 20 Meq/D5/0.45% Sod Chl IV CONT 100 mls/hr .Q10H RONA Administration Ondansetron HCl 4 mg 07/25/25 12:16 Ondansetron Inj 4 Mg/2 Ml Vial IV PUSH Q8H PRN Nausea And Vomiting Pantoprazole Sodium 40 mg 07/26/25 09:00 07/26/25 08:25 Pantoprazole 40 Mg Tablet PO 40 mg Q12HR RONA Administration Senna/Docusate Sodium 1 tab 07/25/25 12:16 Senna/Docusate Sodium Tablet PO HS PRN Constipation Radiology Results: ITS Impressions Fluoroscopy 07/25/25 11:02 IMPRESSION: 1. Fluoroscopy utilized during placement of an instrumented L5-S1 anterior and posterior spinal fusion. See procedure note for further detail. 2. Unchanged chronic solidly fused L4-L5 anterior spinal fusion with anterior plate-screw fixation.
[2025-07-26 13:32] VITALS: BP 118/65; PULSE 92; RESP 18; TEMP 36.4; O2SAT 99
[2025-07-26 18:55] VITALS: BP 136/72; PULSE 99; RESP 15; TEMP 36.6; O2SAT 99
[2025-07-27] MEDS: ceFAZolin 1 GM in SODIUM CHLORIDE 0.9% IV 50 ML 100 ML IVPB ×2 (00:18→08:50)
[2025-07-27 06:15] VITALS: BP 128/74; PULSE 87; RESP 18; TEMP 37.2; O2SAT 95
[2025-07-27] MEDS: PANTOPRAZOLE 40 MG TABLET PO ×2 (08:49→20:54)
[2025-07-27] MEDS: DOCUSATE SODIUM 100 MG CAPSULE PO ×2 (08:49→20:54)
[2025-07-27] MEDS: ATORVASTATIN 40 MG TABLET PO (08:49)
[2025-07-27] MEDS: HYDROcodone/acetaminophen (*CRX) 10-325 MG TABLET 1 TAB PO ×3 (08:50→20:54)
[2025-07-27] MEDS: KCL 20 MEQ/D5/0.45% SOD CHL 1,000 ML 30 ML IV CONT ×2 (10:45→19:46)
[2025-07-27] MEDS: CYCLOBENZAPRINE HCL 10 MG TABLET PO ×2 (11:46→20:54)
--- NOTE | 2025-07-27 13:12 | WPDNEUROSGPN ---
Progress Note: A&P Assessment and Plan (1) Status post lumbar spinal arthrodesis: Code(s): Z98.1 - Arthrodesis status Status: Acute Plan -Remove hemovac drain today -PT/OT working with patient -Stay tonight for pain control -Anticipate likely discharge home tomorrow Subjective Date/time seen: 07/27/25 13:12 Interval history: Having quite a bit of pain in the lower back and right hip area. This is gradually improving since surgery. The pain medications are adequately controlling his pain. He ambulated in the halls today with therapy. He is tolerating oral intake and voiding independently. Review of Systems Review of Systems: All systems reviewed & are unremarkable except as noted in HPI and below Exam Narrative: AOx4 Incision c/d/i with dermabond in place HV 60cc Moving legs with good strength, somewhat pain-limited diffusely Sensation intact to light touch Objective Data Vital Signs Vital Signs: Vital Signs - 24 hr 07/26/25 13:32 07/26/25 18:55 07/27/25 06:15 Temperature 97.5 F L 97.9 F 99.0 F Pulse Rate 92 99 87 Respiratory Rate 18 15 18 Blood Pressure 118/65 136/72 128/74 Pulse Oximetry 99 99 95 Oxygen Delivery 07/27/25 08:50 Temperature Pulse Rate Respiratory Rate Blood Pressure Pulse Oximetry Oxygen Delivery Room Air Intake/Output Intake/Output: Intake & Output 07/24/25 07/25/25 07/26/25 07/27/25 23:59 23:59 23:59 23:59 Intake Total 1590 2073.3 1100 Output Total 2530 3030 250 Balance -940 -956.7 850 Meds/Results Medications: Active Medications Generic Name Dose Route Start Last Admin Trade Name Freq PRN Reason Stop Dose Admin Hydrocodone Bitart/Acetaminophen 1 tab 07/25/25 12:16 Hydrocodone/Acetaminophen (*Crx) 5-325 Mg Tablet PO Q4H PRN Mild Pain (1-3) Hydrocodone Bitart/Acetaminophen 1 tab 07/25/25 12:16 07/27/25 08:50 Hydrocodone/Acetaminophen (*Crx) 10-325 Mg Tablet PO 1 tab Q4H PRN Administration Moderate Pain (4-6) Al Hydrox/Mg Hydrox/Simethicone 20 ml 07/25/25 12:16 Mag Hydrox/Al Hydrox/Simeth 30 Ml Udc PO Q4H PRN Indigestion/Heartburn Atorvastatin Calcium 40 mg 07/26/25 09:00 07/27/25 08:49 Atorvastatin 40 Mg Tablet PO 40 mg DAILY RONA Administration Bisacodyl 10 mg 07/25/25 12:16 Bisacodyl 10 Mg Suppository RECTAL DAILY PRN Constipation Cyclobenzaprine HCl 10 mg 07/25/25 12:16 07/27/25 11:46 Cyclobenzaprine Hcl 10 Mg Tablet PO 10 mg TID PRN Administration Muscle Spasms Docusate Sodium 100 mg 07/25/25 21:00 07/27/25 08:49 Docusate Sodium 100 Mg Capsule PO 100 mg Q12HR RONA Administration Potassium Chloride/Dextrose/Sod Cl 1,000 mls @ 100 mls/hr 07/25/25 12:16 07/27/25 10:45 Kcl 20 Meq/D5/0.45% Sod Chl IV CONT 30 mls/hr .Q10H RONA Administration Ondansetron HCl 4 mg 07/25/25 12:16 Ondansetron Inj 4 Mg/2 Ml Vial IV PUSH Q8H PRN Nausea And Vomiting Pantoprazole Sodium 40 mg 07/26/25 09:00 07/27/25 08:49 Pantoprazole 40 Mg Tablet PO 40 mg Q12HR RONA Administration Senna/Docusate Sodium 1 tab 07/25/25 12:16 Senna/Docusate Sodium Tablet PO HS PRN Constipation Radiology Results: ITS Impressions Fluoroscopy 07/25/25 11:02 IMPRESSION: 1. Fluoroscopy utilized during placement of an instrumented L5-S1 anterior and posterior spinal fusion. See procedure note for further detail. 2. Unchanged chronic solidly fused L4-L5 anterior spinal fusion with anterior plate-screw fixation.
[2025-07-27 22:00] VITALS: BP 122/63; PULSE 89; RESP 18; TEMP 37.1; O2SAT 98
[2025-07-28] MEDS: HYDROcodone/acetaminophen (*CRX) 10-325 MG TABLET 1 TAB PO (05:50)
[2025-07-28] MEDS: CYCLOBENZAPRINE HCL 10 MG TABLET PO (05:50)
[2025-07-28 06:00] VITALS: BP 125/68; PULSE 91; RESP 18; TEMP 36.7; O2SAT 96
[2025-07-28] MEDS: HYDROcodone/acetaminophen (*CRX) 5-325 MG TABLET 1 TAB PO (08:46)
[2025-07-28] MEDS: DOCUSATE SODIUM 100 MG CAPSULE PO (08:47)
[2025-07-28] MEDS: ATORVASTATIN 40 MG TABLET PO (08:47)
[2025-07-28] MEDS: PANTOPRAZOLE 40 MG TABLET PO (08:47)
--- NOTE | 2025-07-28 10:53 | WPDNEUROSGPN ---
Progress Note: A&P Assessment and Plan (1) Lumbar stenosis: Code(s): M48.061 - Spinal stenosis, lumbar region without neurogenic claudication Status: Acute Plan 65-year-old gentleman status post Left L3-4 hemilaminectomy, L5-S1 complete laminectomy and bilateral facetectomy, L5-S1 complete diskectomy and interbody arthrodesis utilizing titanium interbody devices, local autograft, L5-S1 pedicle screw instrumentation who is doing very well at this point his pain is well controlled he is ambulating well with physical therapy. He is stable for discharge after discussion with Dr. Dumont I have discharged him this morning and I will send medications to his pharmacy. Subjective Date/time seen: 07/28/25 10:53 Interval history: Patient is doing very well after surgery. He notes significant improvement in his pain. I also discussed with physical therapy that he is improved and is walking about 240 ft without difficulty. He has some difficulty from a sit to stand position. Exam Narrative: Is awake alert no acute distress his incision is clean dry and intact he moves his bilateral lower extremities 5/5 strength including iliopsoas, quadriceps, hamstrings, plantar flexors, dorsiflexors, EHL. Objective Data Vital Signs Vital Signs: Vital Signs - 24 hr 07/27/25 20:00 07/27/25 22:00 07/28/25 06:00 Temperature 98.7 F 98.1 F Pulse Rate 89 91 Respiratory Rate 18 18 Blood Pressure 122/63 125/68 Pulse Oximetry 98 96 Oxygen Delivery Room Air 07/28/25 09:10 Temperature Pulse Rate Respiratory Rate Blood Pressure Pulse Oximetry Oxygen Delivery Room Air Intake/Output Intake/Output: Intake & Output 07/25/25 07/26/25 07/27/25 07/28/25 23:59 23:59 23:59 23:59 Intake Total 1590 2073.3 2050.5 540 Output Total 2530 3030 550 300 Balance -940 -956.7 1500.5 240 Meds/Results Medications: Active Medications Generic Name Dose Route Start Last Admin Trade Name Freq PRN Reason Stop Dose Admin Hydrocodone Bitart/Acetaminophen 1 tab 07/25/25 12:16 07/28/25 08:46 Hydrocodone/Acetaminophen (*Crx) 5-325 Mg Tablet PO 1 tab Q4H PRN Administration Mild Pain (1-3) Hydrocodone Bitart/Acetaminophen 1 tab 07/25/25 12:16 07/28/25 05:50 Hydrocodone/Acetaminophen (*Crx) 10-325 Mg Tablet PO 1 tab Q4H PRN Administration Moderate Pain (4-6) Al Hydrox/Mg Hydrox/Simethicone 20 ml 07/25/25 12:16 Mag Hydrox/Al Hydrox/Simeth 30 Ml Udc PO Q4H PRN Indigestion/Heartburn Atorvastatin Calcium 40 mg 07/26/25 09:00 07/28/25 08:47 Atorvastatin 40 Mg Tablet PO 40 mg DAILY RONA Administration Bisacodyl 10 mg 07/25/25 12:16 Bisacodyl 10 Mg Suppository RECTAL DAILY PRN Constipation Cyclobenzaprine HCl 10 mg 07/25/25 12:16 07/28/25 05:50 Cyclobenzaprine Hcl 10 Mg Tablet PO 10 mg TID PRN Administration Muscle Spasms Docusate Sodium 100 mg 07/25/25 21:00 07/28/25 08:47 Docusate Sodium 100 Mg Capsule PO 100 mg Q12HR RONA Administration Potassium Chloride/Dextrose/Sod Cl 1,000 mls @ 100 mls/hr 07/25/25 12:16 07/28/25 05:12 Kcl 20 Meq/D5/0.45% Sod Chl IV CONT Not Given .Q10H RONA Ondansetron HCl 4 mg 07/25/25 12:16 Ondansetron Inj 4 Mg/2 Ml Vial IV PUSH Q8H PRN Nausea And Vomiting Pantoprazole Sodium 40 mg 07/26/25 09:00 07/28/25 08:47 Pantoprazole 40 Mg Tablet PO 40 mg Q12HR RONA Administration Senna/Docusate Sodium 1 tab 07/25/25 12:16 Senna/Docusate Sodium Tablet PO HS PRN Constipation Radiology Results: ITS Impressions Fluoroscopy 07/25/25 11:02 IMPRESSION: 1. Fluoroscopy utilized during placement of an instrumented L5-S1 anterior and posterior spinal fusion. See procedure note for further detail. 2. Unchanged chronic solidly fused L4-L5 anterior spinal fusion with anterior plate-screw fixation.
--- NOTE | 2025-08-07 09:49 | PM.DS ---
DS: Admitting Diagnosis Discharge Date 07/28/25 Admitting Diagnosis lumbar spondylosis and lumbar stenosis DS: Discharge Diagnosis Discharge Diagnosis (1) Lumbar spinal stenosis due to adjacent segment disease after fusion procedure: Code(s): M48.061 - Spinal stenosis, lumbar region without neurogenic claudication; M51.369 - Other intervertebral disc degeneration, lumbar region without mention of lumbar back pain or lower extremity pain; Z98.1 - Arthrodesis status Status: Acute (2) Foraminal stenosis of lumbosacral region: Code(s): M48.07 - Spinal stenosis, lumbosacral region Status: Acute DS: Summary Hospital Course Hospital Course: the patient was taken the operating room on 05/17/2025 where an L5-S1 posterior lumbar interbody fusion and a left L3-4 hemilaminectomy was performed without complication. The patient went to the floor postoperatively. By postoperative day 2 his drain and Vaughn catheter had been removed. Physical and occupational therapy were involved in his care and by the time of his discharge he was eating, ambulating, emptying his bladder in his pain was under control with by mouth pain medicine. His wounds remained clean, dry and intact. He was afebrile with stable vital signs. He was therefore allowed to be discharged to home. Time Spent with Patient Time attestation: Total time spent providing and/or coordinating discharge services: Discharge Plan Discharge Attending physician on discharge: George Richardson Consulting providers: Alex Grullon; Carmen Galindo; Lesley Hannah; Darian Puckett; Murphy Baxter Discharging Clinician: George Richardson Patient Disposition: Home Activity: may shower Diet: as tolerated Discharge Instructions: Please contact Dr. Richardson office for specific instructions. In general: Discharge Instructions Okay to ambulate. Okay to shower. Do not bathe/swim X 6 weeks. No bending, lifting, twisting or lifting heavier than 1 gallon of milk. Schedule a follow-up clinic appointment in 2 weeks. Patient Instructions: Antibiotic Form Patient Language: [place] Stand Alone Forms: General Discharge Information Follow-up/Referrals: George Richardson MD [Physician, Neurosurgery] Discharge Medications: New sennosides [senna] 8.6 mg tablet 8.6 mg PO BID PRN (Reason: constipation) Qty: 30 2RF oxycodone 5 mg tablet 5 mg PO Q4H PRN (Reason: pain) Qty: 28 0RF cyclobenzaprine 5 mg tablet 5 mg PO HS Qty: 30 0RF Continued omeprazole 40 mg capsule,delayed release(DR/EC) 40 mg PO DAILY Qty: 90 1RF atorvastatin 40 mg tablet 40 mg PO DAILY Qty: 90 1RF Held Eliquis 2.5 mg tablet 2.5 mg PO Q12H Hold Instructions: contact Dr. Richardson office on when to restart this Date of admission: 07/26/25 14:10 Primary Care Provider: Binh Hughes Admitting Provider: George Richardson Attending physician on admission: George Richardson Condition: Improved
== END 2025-07-28 12:02 | disposition home or self-care (01) ==
LOC: ANHSURGERY 14:25 → ANH2MED 14:25
PROVIDERS: Admitting Provider Neurological Surgery; PCP Family Medicine; Visit Provider Neurological Surgery
PROC: (CPT 22612; principal; 2025-07-25 07:30)
PROC: (CPT 63030; 2025-07-25 07:30)
DX: M51.361 Other intervertebral disc degeneration, lumbar region with lower extremity pain only (principal); M48.061 Spinal stenosis, lumbar region without neurogenic claudication; M48.07 Spinal stenosis, lumbosacral region; Z98.1 Arthrodesis status; Z86.711 Personal history of pulmonary embolism; Z79.01 Long term (current) use of anticoagulants; E78.2 Mixed hyperlipidemia; I10 Essential (primary) hypertension; Z96.653 Presence of artificial knee joint, bilateral
CPT/HCPCS: 63047; 22630; 22853; 22840; 20936; 36415; 86850; 86900; 86901; 97161; 97166; 97530; 97535; 99199; J0690; A9270; C1713; G0378; J1100; J1171; J2003; J2004; J2250; J2405; J2704; J3010; J3480; J7120

== ENCOUNTER 2025-09-08 11:57 | Outpatient (CLI) | payer MEDICARE, SELFPAY ==
--- NOTE | ~2025-09-08 | XR_ITS ---
XR lumbar spine 2-3V Indication: Z98.1 - Arthrodesis status; 6 WKS POST OP Comparison: None Findings: Posterior fixation of L5-S1 with anterior fixation of L4 on L5 with disc prostheses, the hardware is intact. Grade 1 retrolisthesis of L2 on L3, grade 1 anterolisthesis of L3 on L4, no acute fracture. Minimal loss of the remaining disc heights. Soft tissues unremarkable Impression: No acute abnormality. Reviewed, dictated and finalized at location P. [employer] Impression: No acute abnormality.
== END 2025-09-08 11:58 | disposition home or self-care (01) ==
PROVIDERS: PCP Family Medicine; Visit Provider Nurse Practitioner Adult Health
DX: Z98.1 Arthrodesis status (principal)
CPT/HCPCS: 72100